=== PATIENT | female | born 1990 | race Caucasian/White ===

== ENCOUNTER 2017-04-29 20:00 | Emergency (ER) | payer SELFPAY ==
[2017-04-29] MEDS ORDERED: HYDROCODONE/ACETAMINOPHEN 5-325 MG TABLET PO ONE (20:54)
[2017-04-29] MEDS ORDERED: IBUPROFEN 600 MG TABLET PO ONE (20:54)
--- NOTE | 2017-04-29 21:02 | ER Document Report ---
ED GI/ - General Chief Complaint: Abdominal Pain Stated Complaint: LEFT LOWER ABDOMINAL PAIN Time Seen by Provider: 04/29/17 20:24 Notes: Patient is a 27-year-old female, past medical history ruptured left ovarian cyst , presents with 1 day of increasing left adnexal pain, similar to when she had a ruptured cyst. Her last menstrual period was 2 weeks ago. She denies vaginal discharge, diarrhea, constipation, nausea, vomiting or fevers. TRAVEL OUTSIDE OF THE [place] IN LAST 30 DAYS: No - Related Data Allergies/Adverse Reactions: No Known Allergies Allergy (Verified 04/16/15 09:43) Past Medical History - General Information source: Patient - Social History Smoking Status: Unknown if Ever Smoked Family History: None, Reviewed & Not Pertinent Patient has suicidal ideation: No Patient has homicidal ideation: No Renal/ Medical History: Denies: Hx Peritoneal Dialysis Psychiatric Medical History: Reports: Hx Anxiety Past Surgical History: Reports: Hx Adenoidectomy, Hx Tonsillectomy - & adenoids - Immunizations Immunizations up to date: Yes Hx Diphtheria, Pertussis, Tetanus Vaccination: No Review of Systems - Review of Systems Notes: REVIEW OF SYSTEMS: CONSTITUTIONAL: -fevers, -chills EENT: -eye pain, -difficulty swallowing, -nasal congestion CARDIOVASCULAR: -chest pain, -syncope. RESPIRATORY: -cough, -SOB GASTROINTESTINAL: +abdominal pain, -nausea, -vomiting, -diarrhea GENITOURINARY: -dysuria, -hematuria MUSCULOSKELETAL: -back pain, -neck pain SKIN: -rash or skin lesions. HEMATOLOGIC: -easy bruising or bleeding. LYMPHATIC: -swollen, enlarged glands. NEUROLOGICAL: -altered mental status or loss of consciousness, -headache, - neurologic symptoms PSYCHIATRIC: -anxiety, -depression. ALL OTHER SYSTEMS REVIEWED AND NEGATIVE. Physical Exam - Vital signs Vitals: Temp Pulse Resp BP Pulse Ox 98.4 F 79 16 145/85 H 100 04/29/17 20:13 04/29/17 20:13 04/29/17 20:13 04/29/17 20:13 04/29/17 20:13 - Notes Notes: PHYSICAL EXAMINATION: GENERAL: Well-appearing, well-nourished and in no acute distress. HEAD: Atraumatic, normocephalic. EYES: Pupils equal round and reactive to light, extraocular movements intact, sclera anicteric, conjunctiva are normal. ENT: nares patent, oropharynx clear without exudates. Moist mucous membranes. NECK: Normal range of motion, supple without lymphadenopathy LUNGS: Breath sounds clear to auscultation bilaterally and equal. No wheezes rales or rhonchi. HEART: Regular rate and rhythm without murmurs ABDOMEN: Soft, mild LLQ tenderness, normoactive bowel sounds. No guarding, no rebound. No masses appreciated. : Non-tender adnexa, no vaginal discharge, non-tender uterus, no masses EXTREMITIES: Normal range of motion, no pitting or edema. No cyanosis. NEUROLOGICAL: Cranial nerves grossly intact. Normal speech, normal gait. Normal sensory and motor exams. PSYCH: Normal mood, normal affect. SKIN: Warm, Dry, normal turgor, no rashes or lesions noted. Course - Re-evaluation Re-evalutation: Patient's transvaginal ultrasound and urinalysis do not show any concerning abnormalities. Initially tender in the left lower quadrant, but on repeat exam after her studies, she is no longer tender. Her pelvic exam is completely non- tender. Instructed patient to follow-up with her brush or broom cutter and primary care physician for further evaluation and treatment. - Vital Signs Vital signs: Temp Pulse Resp BP Pulse Ox 97.7 F 77 16 118/67 96 04/30/17 00:12 04/30/17 00:12 04/30/17 00:12 04/30/17 00:12 04/30/17 00:12 - Laboratory Laboratory results interpreted by me: 04/29/17 21:27 Urine Blood SMALL H Ur Leukocyte Esterase TRACE H - Diagnostic Test Radiology reviewed: Image reviewed, Reports reviewed Radiology results interpreted by me: US Transvaginal: Normal Discharge - Discharge Clinical Impression: Abdominal pain Qualifiers: Abdominal location: left lower quadrant Qualified Code(s): R10.32 - Left lower quadrant pain Condition: Stable Disposition: HOME, SELF-CARE Additional Instructions: ABDOMINAL PAIN: There are many causes of abdominal pain. Pain can mean a serious problem requiring surgery (such as appendicitis). It can also be an innocent problem that goes away on its own (such as a viral infection). Often, time must pass to determine the cause of pain. The physician does not feel that hospitalization is necessary, at present. Things may change within the next 24 hours. Call the doctor or come back for re- examination if any problems occur, such as: (1) Pain that becomes more severe, steady, or becomes concentrated in one specific area. Also, pain that is more severe with movement or coughing. (2) Vomiting that persists or becomes more frequent. (3) Blood in the vomitus, urine, or bowel movements. Blood in the stool may have a tarry or black appearance. (4) Shaking chills or fever greater than 100 degrees F. (5) The abdomen becomes more distended or swollen. (6) Bowel movements cease. (7) Failure to improve as expected. NORMAL EXAM AND WORKUP: At this time, your examination and workup show no significant abnormality. No significant abnormal physical findings are noted. All laboratory, EKG, and imaging (x-ray, CT scans, ultrasound) studies that were ordered show no significant abnormality. Although your examination and all studies that were ordered showed no significant abnormal finding, there are no examinations and no studies that are 100% accurate. There is always the possibility that some abnormality could exist and not be detected with physical examination or within the limits and capabilities of laboratory and other studies. You should return or follow up as you were instructed on your visit today for further evaluation if your symptoms do not resolve. ANTISPASMODICS: You have been given a prescription for an antispasmodic medicine. This type of drug is used to decrease cramping and pain in the intestines. It is also used to decrease secretion of internal fluids (such as stomach acid in ulcer disease or pancreatic juice in pancreas disease). This medicine may cause drowsiness, especially with the first dose. Do not operate machinery or drive until all side effects have resolved. Do not combine with alcohol. Other common side effects include dry mouth and eyes. In older persons, antispasmodics can occasionally cause urinary retention, constipation, or trouble focusing the eyes. Glaucoma may be worsened by this medicine. FOLLOW-UP CARE: If you have been referred to a physician for follow-up care, call the physician s office for an appointment as you were instructed or within the next two days. If you experience worsening or a significant change in your symptoms, notify the physician immediately or return to the Emergency Department at any time for re-evaluation. Prescriptions: Dicyclomine HCl [Bentyl 10 mg Capsule] 1 cap PO TID #14 cap Forms: Elevated Blood Pressure Referrals: [facility] [Outside] - Follow up as needed
[2017-04-29 21:44] LABS: APPEARANCE,URINE SLIGHTLY-CLOUDY; BILIRUBIN,URINE NEGATIVE (NEGATIVE); GLUCOSE, URINE NEGATIVE (NEGATIVE); KETONES,URINE NEGATIVE (NEGATIVE); LEUKOCYTE ESTERASE,URINE TRACE (NEGATIVE); NITRITE,URINE NEGATIVE (NEGATIVE); PROTEIN,URINE NEGATIVE (NEGATIVE); URINE SPECIFIC GRAVITY 1.003; UROBILINOGEN,URINE NEGATIVE mg/dL (<2.0)
--- NOTE | 2017-04-29 22:08 | RADIOLOGY REPORT (SQ) ---
EXAM DESCRIPTION: U/S NON OB PEL TV W/DOPPLER COMPLETED DATE/TIME: 04/29/2017 9:48 pm REASON FOR STUDY: transvaginal, left adnexal pain, Hx ruptured cysts COMPARISON: 03/22/2012 TECHNIQUE: Dynamic and static grayscale images acquired of the pelvis via transvaginal approach and recorded on PACS. Additional selected color Doppler and spectral images recorded. LIMITATIONS: None. FINDINGS: UTERUS: Contour normal. No mass. ENDOMETRIAL STRIPE: No focal or generalized thickening. No masses. CERVIX: No nabothian cysts. RIGHT OVARY: No abnormal masses. RIGHT OVARY DOPPLER: Normal arterial vascular flow without evidence for torsion. LEFT OVARY: No abnormal masses. LEFT OVARY DOPPLER: Normal arterial vascular flow without evidence for torsion. FREE FLUID: None noted. OTHER: No other significant finding. MEASUREMENTS: UTERUS: 8.0 x 3.9 x 4.9 cm ENDOMETRIAL STRIPE: 0.7 cm RIGHT OVARY: 2.7 x 3.4 x 3.4 cm LEFT OVARY: 1.6 x 2.4 x 1.4 cm IMPRESSION: NORMAL TRANSVAGINAL PELVIC ULTRASOUND. TECHNICAL DOCUMENTATION: JOB ID: [id number]- All Rights Reserved
[2017-04-29] MEDS ORDERED: DICYCLOMINE HCL 10 MG CAPSULE PO ONE (23:58)
[2017-04-30 00:15] VITALS: BP 118/67
== END 2017-04-30 00:12 | disposition home or self-care (01) ==
LOC: ER 20:00
DX: R10.32 Left lower quadrant pain (principal)
CPT/HCPCS: 99284; 81025; 81001; 76830; 93976; J3490

== ENCOUNTER 2017-08-30 16:11 | Emergency (ER) | payer SELFPAY ==
[2017-08-30] MEDS ORDERED: OXYCODONE-ACETAMINOPHEN 5-325 MG TABLET PO ONE ×2 (17:46→19:42)
--- NOTE | 2017-08-30 18:14 | ER Document Report ---
ED Wound - General Chief Complaint: Laceration Stated Complaint: RIGHT ARM INJURY Time Seen by Provider: 08/30/17 16:39 Notes: The patient is a 27-year-old female who presents with a right forearm laceration after she was demolishing a house at work and a tile cut her. Her tetanus is up-to-date. She denies heavy bleeding, numbness, tingling or any other wounds. TRAVEL OUTSIDE OF THE [place] IN LAST 30 DAYS: No - Related Data Allergies/Adverse Reactions: No Known Allergies Allergy (Verified 04/16/15 09:43) Past Medical History - General Information source: Patient - Social History Smoking Status: Current Every Day Smoker Chew tobacco use (# tins/day): No Frequency of alcohol use: Occasional Drug Abuse: None Family History: None, Reviewed & Not Pertinent Patient has suicidal ideation: No Patient has homicidal ideation: No Renal/ Medical History: Denies: Hx Peritoneal Dialysis Psychiatric Medical History: Reports: Hx Anxiety Past Surgical History: Reports: Hx Adenoidectomy, Hx Tonsillectomy - & adenoids - Immunizations Immunizations up to date: Yes Hx Diphtheria, Pertussis, Tetanus Vaccination: No Review of Systems - Review of Systems Notes: REVIEW OF SYSTEMS: CONSTITUTIONAL: -fevers, -chills EENT: -eye pain, -difficulty swallowing, -nasal congestion CARDIOVASCULAR:-chest pain, -syncope. RESPIRATORY: -cough, -SOB GASTROINTESTINAL: -abdominal pain, - nausea, -vomiting, -diarrhea GENITOURINARY: -dysuria, -hematuria MUSCULOSKELETAL: -back pain, -neck pain SKIN: +right forearm laceration HEMATOLOGIC: -easy bruising or bleeding. LYMPHATIC: -swollen, enlarged glands. NEUROLOGICAL: -altered mental status or loss of consciousness, -headache, - neurologic symptoms PSYCHIATRIC: -anxiety, -depression. ALL OTHER SYSTEMS REVIEWED AND NEGATIVE. Physical Exam - Vital signs Vitals: Temp Pulse Resp BP Pulse Ox 97.9 F 96 20 127/79 H 100 08/30/17 16:16 08/30/17 16:16 08/30/17 16:16 08/30/17 16:16 08/30/17 16:16 - Notes Notes: PHYSICAL EXAMINATION: GENERAL: Well-appearing, well-nourished and in no acute distress. HEAD: Atraumatic, normocephalic. EYES: Pupils equal round and reactive to light, extraocular movements intact, sclera anicteric, conjunctiva are normal. ENT: nares patent, oropharynx clear without exudates. Moist mucous membranes. NECK: Normal range of motion, supple without lymphadenopathy LUNGS: Breath sounds clear to auscultation bilaterally and equal. No wheezes rales or rhonchi. HEART: Regular rate and rhythm without murmurs ABDOMEN: Soft, nontender, normoactive bowel sounds. No guarding, no rebound. No masses appreciated. EXTREMITIES: Normal range of motion, no pitting or edema. No cyanosis. Strong distal pulses. NEUROLOGICAL: Cranial nerves grossly intact. Normal speech, normal gait. Normal sensory and motor exams. PSYCH: Normal mood, normal affect. SKIN: 15 cm linear laceration of right posterior forearm Course - Re-evaluation Re-evalutation: Patient's laceration extensively cleaned and irrigated. She has no vascular or neuro compromise. Laceration sutured and patient given strict return precautions. Her tetanus is up-to-date. - Vital Signs Vital signs: Temp Pulse Resp BP Pulse Ox 98.5 F 86 18 124/74 100 08/30/17 19:54 08/30/17 19:54 08/30/17 19:54 08/30/17 19:54 08/30/17 19:54 Procedures - Laceration/Wound Repair Right Arm Time completed: 19:39 Wound length (cm): 15 Wound's Depth, Shape: Into muscle, Linear Laceration pre-procedure: Sterile PPE donned, Sterile drapes applied, Shur- Clens applied Anesthetic type: 1% Lidocaine w/epi Volume Anesthetic (mLs): 10 Wound explored: Clean, No foreign body removed Irrigated w/ Saline (mLs): 1,000 Wound Repaired With: Sutures Suture Size/Type: 4:0, Prolene Number of Sutures: 15 Layer Closure?: No Post-procedure wound care: Sterile dressing applied Post-procedure NV exam normal: Yes Complications: No Discharge - Discharge Clinical Impression: Laceration of right forearm Qualifiers: Encounter type: initial encounter Qualified Code(s): S51.811A - Laceration without foreign body of right forearm, initial encounter Condition: Stable Disposition: HOME, SELF-CARE Additional Instructions: LACERATION CARE: Your laceration has been sutured to keep the skin edges aligned during healing. The time of suture removal depends on the nature and location of your cut. Please follow the care instructions the doctor has outlined for you and return for further care, according to the schedule you've been given. Keep the wound and dressing clean. Unless you were told otherwise, you may shower daily, blotting the wound dry with a clean, unused towel. At other times, If the dressing gets wet or blood soaked, remove it and blot the wound dry, then reapply a new dressing. Unless you were instructed otherwise, dressings should be changed at least daily. If any signs of infection occur (swelling, redness, drainage, increasing tenderness, red streaks, tender lumps in the armpit or groin above the laceration, or fever), see the doctor immediately. SOAP CLEANSING: Gently wash the wound daily using a mild soap (like Ivory, Phisoderm, Neutrogena). Use warm water, rubbing gently until all debris, ooze, and crusting have been washed from the wound. Allow to dry briefly (about 10 minutes) after cleaning. Repeat this cleansing at least three times a day for the first two days and then once or twice a day. ANTIBIOTIC OINTMENT PROTECTION: Your wounds are such that dressing them is not practical or optional. After cleansing, you should apply a thin coating of antibiotic ointment ( Bacitracin, not Neosporin) to the wounds at least three times daily. This lessens infection risk, and may decrease the amount of scarring. Use a q-tip or dull butter knife, not your finger, to apply this ointment. Any debris or ooze which builds up in the ointment should be gently rubbed off with a sterile gauze pad. Harder crusting may need to be gently scrubbed off with a clean wash cloth with soap and warm water, perhaps applying a warm, wet wash cloth to the wound for ten minutes first. Development of redness, severe itching, or blistering may mean allergy to the ointment. See the doctor. FOLLOW-UP CARE: Please return in 2 days for an infection check and dressing change. Your sutures should be removed in 7-10 days. To facilitate a timely removal of your sutures, you may return to the Emergency Department at [facility]. You do not need to call for an appointment, but the best time to come in for suture removal is early in the morning. If you have been referred to another physician for follow-up care, call that physicians office for an appointment as you were instructed. If you experience a significant change in your laceration, or if you are concerned there may be an infection (swelling, redness, drainage, increasing tenderness, red streaks, tender lumps in the armpit or groin above the laceration, or fever) , return to the Emergency Department immediately re-evaluation.
[2017-08-30] MEDS ORDERED: LIDOCAINE 1%/EPINEPHRINE INJ 20 ML VIAL INJ ONE (18:40)
[2017-08-30 21:23] VITALS: BP 124/74
== END 2017-08-30 19:53 | disposition home or self-care (01) ==
LOC: ER 16:11
PROC: 0HQDXZZ Repair Right Lower Arm Skin, External Approach (ICD-10-PCS; principal; 2017-08-30)
DX: S51.811A Laceration without foreign body of right forearm, initial encounter (principal); W45.8XXA Other foreign body or object entering through skin, initial encounter; F17.200 Nicotine dependence, unspecified, uncomplicated
CPT/HCPCS: 99283; 12005; J3490

== ENCOUNTER 2017-10-19 20:43 | Emergency (ER) | payer SELFPAY ==
[2017-10-19] MEDS ORDERED: KETOROLAC TROMETHAMINE INJ/PF 30 MG/1 ML SDV IV ONE (21:22)
[2017-10-19] MEDS ORDERED: ONDANSETRON HCL INJ/PF 4 MG/2 ML SDV IV ONE (21:22)
[2017-10-19] MEDS ORDERED: MORPHINE SULFATE 10 MG/ML INJ IV ONE (21:22)
--- NOTE | 2017-10-19 21:25 | ER Document Report ---
ED GI/ - General Chief Complaint: Abdominal Pain Stated Complaint: ABDOMINAL PAIN Time Seen by Provider: 10/19/17 21:16 Notes: Patient is a 27-year-old female that comes emergency department for chief complaint of sharp left lower pelvic pain that seems to radiate around her back , symptoms started last night, worsen, she states now she is nauseated with it. She states that she tried to put a tampon in because of the bleeding but when she did she had increased pain in her left pelvic area. She denies vaginal discharge, fever or chills. She denies any daily medications. Past medical history of ovarian cysts, states this seems worse. Denies history of kidney stones. TRAVEL OUTSIDE OF THE [place] IN LAST 30 DAYS: No - Related Data Allergies/Adverse Reactions: No Known Allergies Allergy (Verified 10/19/17 20:44) Past Medical History - General Information source: Patient - Social History Smoking Status: Never Smoker Frequency of alcohol use: None Drug Abuse: None Lives with: Family Family History: None, Reviewed & Not Pertinent Renal/ Medical History: Denies: Hx Peritoneal Dialysis Psychiatric Medical History: Reports: Hx Anxiety Past Surgical History: Reports: Hx Adenoidectomy, Hx Tonsillectomy - & adenoids - Immunizations Immunizations up to date: Yes Hx Diphtheria, Pertussis, Tetanus Vaccination: No Review of Systems - Review of Systems Constitutional: No symptoms reported EENT: No symptoms reported Cardiovascular: No symptoms reported Respiratory: No symptoms reported Gastrointestinal: See HPI Genitourinary: See HPI Female Genitourinary: See HPI Musculoskeletal: No symptoms reported Skin: No symptoms reported Hematologic/Lymphatic: No symptoms reported Neurological/Psychological: No symptoms reported Physical Exam - Vital signs Vitals: Temp Pulse Resp BP Pulse Ox 98.4 F 91 18 105/79 98 10/19/17 20:46 10/19/17 20:46 10/19/17 20:46 10/19/17 20:46 10/19/17 20:46 Interpretation: Normal - General General appearance: Alert, Anxious In distress: Mild - Patient appears uncomfortable - HEENT Head: Normocephalic, Atraumatic Eyes: Normal Conjunctiva: Normal Extraocular movements intact: Yes Eyelashes: Normal Pupils: PERRL Mouth/Lips: Normal Mucous membranes: Normal Pharynx: Normal Neck: Normal - Respiratory Respiratory status: No respiratory distress Chest status: Nontender Breath sounds: Normal. No: Decreased air movement, Wheezing Chest palpation: Normal - Cardiovascular Rhythm: Regular. No: Tachycardia Heart sounds: Normal auscultation, S1 appreciated, S2 appreciated Murmur: No - Abdominal Inspection: Normal Distension: No distension Bowel sounds: Normal Tenderness: Tender - Tender in the mid to left lower pelvic areas, remaining abdomen unremarkable, no rebound tenderness, rigidity, or guarding. No: Guarding - Back Back: Normal, Nontender. No: Tender, CVA tenderness - Extremities General upper extremity: Normal inspection, Nontender, Normal color, Normal ROM , Normal temperature General lower extremity: Normal inspection, Nontender, Normal color, Normal ROM , Normal temperature, Normal weight bearing. No: Aren's sign - Neurological Neuro grossly intact: Yes Cognition: Normal Orientation: AAOx4 [place] Coma Scale Eye Opening: Spontaneous [place] Coma Scale Verbal: Oriented [place] Coma Scale Motor: Obeys Commands [place] Coma Scale Total: 15 Speech: Normal Motor strength normal: LUE, RUE, LLE, RLE Sensory: Normal - Skin Skin Temperature: Warm Skin Moisture: Dry Skin Color: Normal Course - Re-evaluation Re-evalutation: Patient appears uncomfortable, she has tenderness in the lower pelvic and left pelvic areas, remaining abdomen is soft and benign. No CVA tenderness. No fever, tachycardia, hypotension. CBC unremarkable, urinalysis unremarkable. Chemistry shows elevated LFTs with ALT greater than AST. Patient is not wanting a pelvic exam due to discomfort, gonorrhea and Chlamydia testing on urine and are negative. I did medicate her to have the ultrasound performed, ultrasound shows no acute abnormality, shows some free fluid. No trauma to suggest any other surgical abnormality. With history of cysts, patient possibly ruptured a cyst, this is not definite. I recommended we perform hepatitis panel based on her elevated LFTs with no obvious source, patient declines. Instructed to avoid Tylenol, alcohol, and have this rechecked with primary care. Discussed workup, discussed return precautions including return or worsening pain, vomiting, fever, dizziness, patient states understanding and agreement. - Vital Signs Vital signs: Temp Pulse Resp BP Pulse Ox 98.4 F 84 16 125/79 100 10/19/17 20:46 10/20/17 04:03 10/20/17 04:03 10/20/17 04:03 10/20/17 04:03 - Laboratory Result Diagrams: 10/19/17 21:48 10/19/17 21:48 Laboratory results interpreted by me: 10/19/17 10/19/17 21:48 23:21 Direct Bilirubin 0.6 H AST 175 H ALT 275 H Urine Blood MODERATE H Discharge - Discharge Clinical Impression: Pelvic pain, Vaginal bleeding Condition: Stable Disposition: HOME, SELF-CARE Additional Instructions: There is some free fluid in the pelvis suggesting possible previous ovarian cyst which caused the pain he had, this also could be bowel, no concerning abnormalities are seen on your workup tonight. Take [id number] ibuprofen , take provided medications tonight if needed. Your liver function tests are elevated tonight. I recommend avoiding alcohol, acetaminophen products, please follow-up with primary care for recheck in the next couple of weeks. Return the emergency department for any concerning or worsening symptoms including vomiting, fever, or any other concerning or worsening symptoms. Forms: Return to Work
[2017-10-19 22:07] LABS: ABSOLUTE EOSINOPHILS # (AUTO) 0.2 10^3/uL (0.0-0.6); ABSOLUTE LYMPHOCYTES (AUTO) 1.7 10^3/uL (0.5-4.7); ABSOLUTE MONOCYTES (AUTO) 0.9 10^3/uL (0.1-1.4); ABSOLUTE NEUT (AUTO) 7.3 10^3/uL (1.7-8.2); BASOPHILS % (AUTO) 0.4 % (0-2); EOSINOPHILS % (AUTO) 1.8 % (0-6); HEMATOCRIT 39.9 % (36.0-47.0); HEMOGLOBIN 13.6 g/dL (12.0-15.5); HGB HCT DIFFERENCE 0.9; LYMPHOCYTES % (AUTO) 16.8 % (13-45); MEAN CORPUSCULAR HGB CONC 34.1 g/dL (32.0-36.0); MEAN CORPUSCULAR VOLUME 94 fl (80-97); MONOCYTES % (AUTO) 8.5 % (3-13); RED BLOOD COUNT 4.25 10^6/uL (3.72-5.28); RED CELL DISTRIBUTION WIDTH 13.4 % (11.5-14.0); SEGMENTED NEUTROPHILS % (AUTO) 72.5 % (42-78)
[2017-10-19 22:24] LABS: ALANINE AMINOTRANSFERASE 275 U/L (9-52); ALBUMIN 4.2 g/dL (3.5-5.0); ALKALINE PHOSPHATASE 101 U/L (38-126); ANION GAP 10 (5-19); ASPARTATE AMINO TRANSFERASE 175 U/L (14-36); BILIRUBIN,DIRECT 0.6 mg/dL (0.0-0.4); BILIRUBIN,TOTAL 0.7 mg/dL (0.2-1.3); BLOOD UREA NITROGEN 15 mg/dL (7-20); CALCIUM 9.4 mg/dL (8.4-10.2); CARBON DIOXIDE 26 mmol/L (22-30); CHLORIDE 106 mmol/L (98-107); CREATININE RESULT 0.88 mg/dL (0.52-1.25); GLUCOSE 98 mg/dL (75-110); SODIUM 142.2 mmol/L (137-145); TOTAL PROTEIN 6.9 g/dL (6.3-8.2)
[2017-10-19] MEDS ORDERED: HYDROMORPHONE HCL INJ/PF 2 MG/ML AMPULE IV ONE (22:26)
[2017-10-19 23:37] LABS: APPEARANCE,URINE CLEAR; BILIRUBIN,URINE NEGATIVE (NEGATIVE); GLUCOSE, URINE NEGATIVE (NEGATIVE); KETONES,URINE NEGATIVE (NEGATIVE); LEUKOCYTE ESTERASE,URINE NEGATIVE (NEGATIVE); NITRITE,URINE NEGATIVE (NEGATIVE); PROTEIN,URINE NEGATIVE (NEGATIVE); URINE SPECIFIC GRAVITY 1.003; UROBILINOGEN,URINE NEGATIVE mg/dL (<2.0)
[2017-10-20] MEDS ORDERED: HYDROMORPHONE HCL INJ/PF 2 MG/ML AMPULE IV ONE (00:55)
--- NOTE | 2017-10-20 02:18 | RADIOLOGY REPORT (SQ) ---
EXAM DESCRIPTION: U/S NON OB PEL TV W/DOPPLER CLINICAL HISTORY: 27 years, Female, sharp left pelvic pain, vaginal bleeding, nausea COMPARISON: None. TECHNIQUE: Transvaginal. LIMITATIONS: None. FINDINGS: 7.3 cm uterus, 0.5 cm thick endometrium, 2.8 cm right ovary, 2.3 cm left ovary appear normal size, shape, echotexture, and vascularity. No significant free fluid. IMPRESSION: Normal pelvic sonogram. 2011 [employer]- All Rights Reserved
[2017-10-20] MEDS ORDERED: HYDROCODONE/ACETAMINOPHEN 5-325 MG 6 TAB/DSPK PO PRN (02:47)
[2017-10-20] MEDS ORDERED: HYDROCODONE/ACETAMINOPHEN 5-325 MG 6 TAB/DSPK ONE (02:49)
[2017-10-20 04:04] VITALS: BP 125/79
== END 2017-10-20 02:56 | disposition home or self-care (01) ==
LOC: ER 20:43
DX: N93.9 Abnormal uterine and vaginal bleeding, unspecified (principal); R10.2 Pelvic and perineal pain; R11.0 Nausea; M54.9 Dorsalgia, unspecified
CPT/HCPCS: 96376; 99284; 96374; 96375; 36415; 84703; 85025; 80053; 81001; 87491; 87591; 76830; 93976; J1885; J2270; J1170 ×2; J2405

== ENCOUNTER 2018-03-17 12:42 | Emergency (ER) | payer SELFPAY ==
--- NOTE | 2018-03-17 13:33 | ER Document Report ---
HPI - HPI Patient complains to provider of: abscess left forearm Onset: Yesterday Onset/Duration: Gradual Pain Level: 5 Context: 28 yo female c/o infected possible flea bite left forearm. Got some pus out, now crusted top. Woke up this morning with pink lesion proximal dorsal left forearm this am. 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 No hx MRSA but has had boils in the past. NO chest pain or sob Associated Symptoms: Other Exacerbated by: Other - touching it Relieved by: Denies Similar symptoms previously: Yes Recently seen / treated by doctor: No - ROS ROS below otherwise negative: Yes Systems Reviewed and Negative: Yes All other systems reviewed and negative - REPRODUCTIVE Reproductive: DENIES: : Past Medical History - General Information source: Patient - Social History Smoking Status: Current Every Day Smoker Frequency of alcohol use: Occasional Drug Abuse: Methamphetamine Occupation: constuction Lives with: Family Family History: Reviewed & Not Pertinent Renal/ Medical History: Denies: Hx Peritoneal Dialysis Skin Medical History: Reports Other - boils Psychiatric Medical History: Reports: Hx Anxiety Past Surgical History: Reports: Hx Adenoidectomy, Hx Tonsillectomy - & adenoids - Immunizations Immunizations up to date: Yes Hx Diphtheria, Pertussis, Tetanus Vaccination: No Vertical Provider Document - CONSTITUTIONAL Agree With Documented VS: Yes Exam Limitations: No Limitations General Appearance: No Apparent Distress - INFECTION CONTROL TRAVEL OUTSIDE OF THE [place] IN LAST 30 DAYS: No - HEENT HEENT: Normocephalic - NECK Neck: Supple - RESPIRATORY Respiratory: Breath Sounds Normal, No Respiratory Distress - CARDIOVASCULAR Cardiovascular: Regular Rate, Regular Rhythm - MUSCULOSKELETAL/EXTREMETIES Musculoskeletal/Extremeties: MAEW, FROM, Tender - crusted red abscess with black center left volar forearm, other dots but denies them to be injection sites. inflamed pink lesion without abscess proximal left dorsal forearm. Course - Vital Signs Vital signs: Temp Pulse Resp BP Pulse Ox 98.6 F 116 H 16 123/79 99 03/17/18 12:46 03/17/18 12:46 03/17/18 12:46 03/17/18 12:46 03/17/18 12:46 Procedures - Incision and Drainage Arm Time completed: 15:27 Type: Simple Anesthetic type: 1% Lidocaine mL's of anesthetic: 2 Blade size: 11 I&D procedure: Other - surgiscrub Incision Method: Incision made by scalpel Amount/type of drainage: moderate pus, deroofed the lesion Discharge - Discharge Clinical Impression: Abscess of left forearm, Encounter for incision and drainage procedure Condition: Good Instructions: Abscess ([facility]), Acetaminophen, Cephalexin ([facility]), Ibuprofen ( General) ([facility]), Post Incision and Drainage, Trimethoprim-Sulfa ([facility]) Additional Instructions: motrin tylenol warm compress bactroban on the pink posterior arm lesion septra and keflex until gone to er if does not improve daily Prescriptions: Ibuprofen [Motrin 600 mg Tablet] 600 mg PO Q8HP PRN #30 tablet PRN Reason: Cephalexin Monohydrate [Keflex 500 mg Capsule] 500 mg PO QID #28 capsule Sulfamethoxazole/Trimethoprim [Sulfamethoxazole-Tmp Ds Tablet] 1 each PO BID # 14 tablet Forms: Return to Work
[2018-03-17] MEDS ORDERED: LIDOCAINE 4%/TETRACAINE 0.5%/EPI 0.18% 5 ML TOPICAL SOLN TOP ONE (13:44)
[2018-03-17] MEDS ORDERED: IBUPROFEN 600 MG TABLET PO ONE (13:45)
[2018-03-17] MEDS ORDERED: CEPHALEXIN 500 MG CAPSULE PO ONE (13:45)
[2018-03-17] MEDS ORDERED: ACETAMINOPHEN 325 MG TABLET PO ONE (13:45)
[2018-03-17] MEDS ORDERED: SULFAMETHOXAZOLE/TRIMETHOPRIM 800-160 MG TABLET PO ONE (13:45)
[2018-03-17] MEDS ORDERED: MUPIROCIN 2% OINTMENT 22 GM TP ONE (13:49)
[2018-03-17] MEDS ORDERED: LIDOCAINE 1% INJ-PF (10 MG/ML) 30 ML SDV ONE (14:43)
[2018-03-17] MEDS ORDERED: LIDOCAINE 1% INJ-PF (10 MG/ML) 30 ML SDV INJ ONE (15:03)
[2018-03-17] MEDS ORDERED: OXYCODONE HCL IR 5 MG TABLET PO ONE (15:26)
[2018-03-17 15:32] VITALS: BP 124/73
== END 2018-03-17 15:43 | disposition home or self-care (01) ==
LOC: ER 12:42
PROC: 0H9EXZZ Drainage of Left Lower Arm Skin, External Approach (ICD-10-PCS; principal; 2018-03-17)
DX: L02.414 Cutaneous abscess of left upper limb (principal); W57.XXXA Bitten or stung by nonvenomous insect and other nonvenomous arthropods, initial encounter; F17.200 Nicotine dependence, unspecified, uncomplicated
CPT/HCPCS: 99283; 10060; J3490 ×2

== ENCOUNTER 2018-05-20 11:16 | Emergency (ER) | payer MEDICAID ==
[2018-05-20] MEDS ORDERED: ACETAMINOPHEN 325 MG TABLET PO ONE (11:44)
--- NOTE | 2018-05-20 11:45 | ER Document Report ---
ED General - General Chief Complaint: Flank Pain Stated Complaint: ABDOMINAL PAIN Time Seen by Provider: 05/20/18 11:36 Mode of Arrival: Ambulatory Information source: Patient TRAVEL OUTSIDE OF THE [place] IN LAST 30 DAYS: No - HPI Notes: 28-year-old female who is 10 weeks 2 para 1 presents the ED with right flank pain, pain started approximately 2 days ago, she states the pain radiates to her neck and down her leg, she has tried [id number] Tylenol, without full relief. - Related Data Allergies/Adverse Reactions: No Known Allergies Allergy (Verified 05/20/18 11:17) Past Medical History - Social History Smoking Status: Current Every Day Smoker Chew tobacco use (# tins/day): No Frequency of alcohol use: None Drug Abuse: Marijuana Family History: Reviewed & Not Pertinent Patient has suicidal ideation: No Patient has homicidal ideation: No Renal/ Medical History: Denies: Hx Peritoneal Dialysis Psychiatric Medical History: Reports: Hx Anxiety Past Surgical History: Reports: Hx Adenoidectomy, Hx Tonsillectomy - & adenoids - Immunizations Immunizations up to date: Yes Hx Diphtheria, Pertussis, Tetanus Vaccination: No Physical Exam - Vital signs Vitals: Temp Pulse Resp BP Pulse Ox 98.7 F 112 H 18 117/65 100 05/20/18 11:20 05/20/18 11:20 05/20/18 11:20 05/20/18 11:20 05/20/18 11:20 - Notes Notes: PHYSICAL EXAMINATION: GENERAL: Well-appearing, well-nourished and in no acute distress. HEAD: Atraumatic, normocephalic. EYES: Pupils equal round and reactive to light, extraocular movements intact, conjunctiva are normal. ENT: Nares patent, oropharynx clear without exudates. Moist mucous membranes. NECK: Normal range of motion, supple without lymphadenopathy LUNGS: Breath sounds clear to auscultation bilaterally and equal. No wheezes rales or rhonchi. HEART: Regular rate and rhythm without murmurs ABDOMEN: Soft, nontender, nondistended abdomen. No guarding, no rebound. No masses appreciated. marked right cva tenderness, left negative. Female : deferred Musculoskeletal: Normal range of motion, no pitting or edema. No cyanosis. Pain with flexion and extension at 30 degrees, positive straight leg test on left. Normal hip rotation. DTR +2 in BLE equally. Strength 5 out of 5 both distally and proximally to bilateral lower extremities normal motor and sensory function in BLE equally. Distal pulses + 2 BLE equally. Noted paraspinal tenderness near L2 and L3. No spinal tenderness. No CVA tenderness bilaterally. Femoral pulses + 2 bilaterally and equally. No abrasions, scars, lacerations, ecchymosis of any recent trauma. normal gait. NEUROLOGICAL: Cranial nerves grossly intact. Normal speech, normal gait. Normal sensory, motor exams PSYCH: Normal mood, normal affect. SKIN: Warm, Dry, normal turgor, no rashes or lesions noted. Course - Re-evaluation Re-evalutation: 05/20/18 16:06 28-year-old female who is afebrile, vitals stable and in mild distress due to pain presents for evaluation of sudden onset right flank pain, CBC negative for any leukocytosis or anemia, CMP negative for any renal or dysfunction, lipase negative. Patient does have elevated liver enzymes, this likely could be due to Tylenol use for her pain. urinalysis negative for UTI urine tox negative. Consulted Dr. Erica Myles, supervising ED attending pertinent laboratory, diagnostic findings and clinical examinations, felt that without any direct trauma, along with her , patient likely has a pinched nerve or muscle strain, is limited with radiological findings as well as pain control to the . Renal ultrasound negative for any acute findings per radiology, transvaginal ultrasound shows a live intrauterine with a heart rate of 150 because the patient to limit Tylenol for pain, to try alternating between heat and ice, as, following up with a chiropractor, orthopedics teacher as well as her FINANCE VICE PRESIDENT and pcp. After performing a Medical Screening Examination, I estimate there is LOW risk for EXPANDING OR RUPTURED ABDOMINAL AORTIC ANEURYSM, CAUDA EQUINA SYNDROME, EPIDURAL MASS ABSCESS OR LESION(S), appendicitis, small bowel obstruction, cholecystitis, incarcerated hernia, pancreatitis, PID, perforated ulcer, tubo-ovarian abscess OSTEOMYELITIS, PERSONAL HISTORY OF CANCER, IMMUNOSUPPERSSSION, HISTORY OF IV DRUG USE, FRACTURE , CORD COMPERSSION, CANCER, RETROPERITONEAL BLEED, SPINAL EPIDURAL HEMATOMA, or HERNIATED DISK CAUSING SEVERE SPINAL STENOSIS, thus I consider the discharge disposition reasonable. I have reevaluated this patient multiple times and no significant life threatening changes are noted. The patient and I have discussed the diagnosis and risks, and we agree with discharging home and close follow-up. We also discussed returning to the Emergency Department immediately if new or worsening symptoms occur with the understanding that symptoms and presentations can change. We have discussed the symptoms which are most concerning (e.g., saddle anesthesia, urinary or bowel incontinence or retention , changing or worsening pain) that necessitate immediate return. 05/20/18 17:04 - Vital Signs Vital signs: Temp Pulse Resp BP Pulse Ox 98.3 F 87 18 107/83 100 05/20/18 16:04 05/20/18 16:04 05/20/18 16:04 05/20/18 16:04 05/20/18 16:04 - Laboratory Result Diagrams: 05/20/18 12:15 05/20/18 14:35 Laboratory results interpreted by me: 05/20/18 05/20/18 05/20/18 12:15 12:33 14:35 RDW 14.5 H AST 60 H ALT 107 H Urine Blood SMALL H Discharge - Discharge Clinical Impression: Elevated liver enzymes, First trimester Lower back pain Qualifiers: Chronicity: acute Back pain laterality: left Sciatica presence: without sciatica Qualified Code(s): M54.5 - Low back pain Condition: Stable Disposition: HOME, SELF-CARE Instructions: Flank Pain ([facility]), Low Back Pain ([facility]), ([facility]) Additional Instructions: You have been seen in the Emergency Department (ED) today for back pain. Your workup and exam have not shown any acute abnormalities and you are likely suffering from muscle strain or possible problems with your discs, but there is no treatment that will fix your symptoms at this time. Please take the naproxen that has been prescribed as directed. You should also purchase a local lidocaine cream such as "aspercreme with lidocaine" and use per bottle instructions to the affected area. Apply heat to the area as often as you are able. Continue to keep active and avoid prolonged periods of bed rest. Please follow up with your doctor as soon as possible regarding today's ED visit and your back pain. Return to the ED for worsening back pain, fever, weakness or numbness of either leg, or if you develop either (1) an inability to urinate or have bowel movements, or (2) loss of your ability to control your bathroom functions (if you start having "accidents"), or if you develop other new symptoms that concern you.concern you. You were seen for abdominal pain during . Your ultrasound and labs are normal today. The exact cause your pain is uncertain but is likely related to your developing baby. Please follow-up with your FINANCE VICE PRESIDENT in the next 24-48 hours. Return to the emergency department immediately if you have worsening of your pain, have persistent vomiting, develop a fever of greater than 100.4F, begin to have vaginal bleeding, or any other symptoms that are worrisome to you. Return immediately for any new or worsening symptoms. Follow up with primary care provider, call tomorrow to make followup appointment. Forms: Return to Work Referrals: LISSETH CARRANZA MD [ASSOCIATE] - Follow up tomorrow ADDIS ORELLANA MD [ACTIVE STAFF] - Follow up tomorrow SAMI SWEENEY MD [ACTIVE STAFF] - Follow up tomorrow
[2018-05-20 12:27] LABS: ABSOLUTE BASOPHILS # (AUTO) 0.1 10^3/uL (0.0-0.2); ABSOLUTE EOSINOPHILS # (AUTO) 0.2 10^3/uL (0.0-0.6); ABSOLUTE LYMPHOCYTES (AUTO) 1.8 10^3/uL (0.5-4.7); ABSOLUTE MONOCYTES (AUTO) 0.6 10^3/uL (0.1-1.4); ABSOLUTE NEUT (AUTO) 5.1 10^3/uL (1.7-8.2); HEMATOCRIT 38.5 % (36.0-47.0); HEMOGLOBIN 13.4 g/dL (12.0-15.5); LYMPHOCYTES % (AUTO) 22.7 % (13-45); MEAN CORPUSCULAR HEMOGLOBIN 32.2 pg (27.0-33.4); MEAN CORPUSCULAR HGB CONC 34.9 g/dL (32.0-36.0); MEAN CORPUSCULAR VOLUME 92 fl (80-97); MONOCYTES % (AUTO) 8.3 % (3-13); PLATELET COUNT 298 10^3/uL (150-450); RED BLOOD COUNT 4.18 10^6/uL (3.72-5.28); RED CELL DISTRIBUTION WIDTH 14.5 % (11.5-14.0); TOTAL CELLS COUNTED % (AUTO) 100 %; WHITE BLOOD COUNT 7.7 10^3/uL (4.0-10.5)
[2018-05-20 12:43] LABS: APPEARANCE,URINE CLEAR; BILIRUBIN,URINE NEGATIVE (NEGATIVE); COLOR,URINE STRAW; GLUCOSE, URINE NEGATIVE (NEGATIVE); KETONES,URINE NEGATIVE (NEGATIVE); LEUKOCYTE ESTERASE,URINE NEGATIVE (NEGATIVE); NITRITE,URINE NEGATIVE (NEGATIVE); PROTEIN,URINE NEGATIVE (NEGATIVE); URINE SPECIFIC GRAVITY 1.002; UROBILINOGEN,URINE NEGATIVE mg/dL (<2.0)
[2018-05-20 14:32] LABS: URINE BARBITURATES SCREEN NEGATIVE; URINE BENZODIAZEPINES SCREEN NEGATIVE; URINE COCAINE SCREEN NEGATIVE; URINE MARIJUANA (THC) SCREEN NEGATIVE; URINE METHADONE SCREEN NEGATIVE; URINE PHENCYCLIDINE SCREEN NEGATIVE
--- NOTE | 2018-05-20 14:44 | RADIOLOGY REPORT (SQ) ---
EXAM DESCRIPTION: U/S 1TRIMESTER/1GEST W/DOPPLER COMPLETED DATE/TIME: 05/20/2018 2:32 pm REASON FOR STUDY: hip/pelvic pain COMPARISON: None TECHNIQUE: Transabdominal static and realtime grayscale images acquired of the pelvis. Additional se lected spectral and color Doppler images recorded. All images stored on PACs. bHCG: Not available. CLINICAL DATES: Not Available. LIMITATIONS: None. FINDINGS: FETUS: Living intrauterine . ULTRASOUND EGA: 10 weeks, 0 days ULTRASOUND TERRY: 12/16/2018 CRL: 3.16 cm FHR: 150 beats per minute. SUBCHORIONIC BLEED: No. SIZE OF BLEED: Not applicable. UTERUS: No masses. No anomalies. CERVICAL LENGTH: 3.2 cm Closed. RIGHT ADNEXA: Ovary not identified. No adnexal free fluid. No adnexal masses. LEFT ADNEXA: Ovary not identified. No adnexal free fluid. No adnexal masses. FREE FLUID: None. OTHER: No other significant finding. IMPRESSION: LIVING INTRAUTERINE . EGA 10 weeks, 0 days Trimester of : First - 0 to 13 weeks. TECHNICAL DOCUMENTATION: JOB ID: [id number] [employer]- All Rights Reserved Reading location - IP/workstation name: [email or web address]
--- NOTE | 2018-05-20 14:46 | RADIOLOGY REPORT (SQ) ---
EXAM DESCRIPTION: U/S RETROPERITON (RENAL/AORTA) COMPLETED DATE/TIME: 05/20/2018 2:34 pm REASON FOR STUDY: right flank pain COMPARISON: None. TECHNIQUE: Dynamic and static grayscale images acquired of the kidneys and bladder and recorded on P ACS. Additional selected color Doppler and spectral images recorded. LIMITATIONS: None. FINDINGS: RIGHT KIDNEY: Normal size. Normal echogenicity. No solid or suspicious masses. No hydronep hrosis. No calcifications. LEFT KIDNEY: Normal size. Normal echogenicity. No solid or suspicious masses. No hydronephrosis. No calcifications. BLADDER: Not visualized, presumably decompressed. OTHER FINDINGS: No other significant finding. IMPRESSION: Normal sonographic appearance of the kidneys. The bladder was not visualized. TECHNICAL DOCUMENTATION: JOB ID: [id number]- All Rights Reserved Reading location - IP/workstation name: [email or web address]
[2018-05-20 15:11] LABS: ALANINE AMINOTRANSFERASE 107 U/L (9-52); ALBUMIN 4.3 g/dL (3.5-5.0); ALKALINE PHOSPHATASE 62 U/L (38-126); ANION GAP 11 (5-19); ASPARTATE AMINO TRANSFERASE 60 U/L (14-36); BILIRUBIN,DIRECT 0.3 mg/dL (0.0-0.4); BILIRUBIN,TOTAL 0.6 mg/dL (0.2-1.3); BLOOD UREA NITROGEN 12 mg/dL (7-20); CALCIUM 9.7 mg/dL (8.4-10.2); CARBON DIOXIDE 23 mmol/L (22-30); CHLORIDE 105 mmol/L (98-107); GLUCOSE 106 mg/dL (75-110); LIPASE 69.1 U/L (23-300); POTASSIUM 3.7 mmol/L (3.6-5.0); TOTAL PROTEIN 7.1 g/dL (6.3-8.2)
[2018-05-20 16:08] VITALS: BP 107/83
[2018-05-22 05:40] LABS: HEPATITIS A AB IGM Negative (Negative); HEPATITIS B CORE AB IGM Negative (Negative); HEPATITS B SURFACE ANTIGEN Negative (Negative)
[2018-05-22 08:27] LABS: HEPATITIS C VIRUS ANTIBODY >11.0 s/co ratio (0.0-0.9)
== END 2018-05-20 17:01 | disposition home or self-care (01) ==
LOC: ER 11:16
DX: O26.91 Pregnancy related conditions, unspecified, first trimester (principal); R74.8 Abnormal levels of other serum enzymes; M54.5 Low back pain; R10.9 Unspecified abdominal pain; O99.331 Smoking (tobacco) complicating pregnancy, first trimester; Z3A.10 10 weeks gestation of pregnancy
CPT/HCPCS: 99284; 36415; 84702; 83690; 85025; 80053; 81001; 80307; 80074; 76801; 76770; 93976; J3490

== ENCOUNTER 2019-05-12 14:13 | Emergency (ER) | payer MEDICAID ==
--- NOTE | 2019-05-12 14:30 | ER Document Report ---
ED Medical Screen (RME) - General Chief Complaint: Skin Problem Stated Complaint: SKIN ISSUE Time Seen by Provider: 05/12/19 14:22 Mode of Arrival: Ambulatory Information source: Patient Notes: Patient presents to the emergency department with right elbow abscess. Reports it started on Monday after she was in a loft. She thinks she may have got bit by a bug. Patient did try to open the abscess herself. No complaints of fever vomiting diarrhea. Denies history of MRSA. Patient reports history of IV drug use over a year ago. She does report smoking a bowl of meth on Monday. I have greeted and performed a rapid initial assessment of this patient. A comprehensive ED assessment and evaluation of the patient, analysis of test results and completion of the medical decision making process will be conducted by additional ED providers. Dictation of this chart was performed using voice recognition software; therefore, there may be some unintended grammatical errors. TRAVEL OUTSIDE OF THE [place] IN LAST 30 DAYS: No - Related Data Allergies/Adverse Reactions: No Known Allergies Allergy (Verified 05/20/18 11:17) Past Medical History Renal/ Medical History: Denies: Hx Peritoneal Dialysis Psychiatric Medical History: Reports: Hx Anxiety Past Surgical History: Reports: Hx Adenoidectomy, Hx Tonsillectomy - & adenoids - Immunizations Immunizations up to date: Yes Hx Diphtheria, Pertussis, Tetanus Vaccination: No Physical Exam - Vital signs Vitals: Temp Pulse Resp BP Pulse Ox 98.7 F 140 H 20 128/82 H 100 05/12/19 14:17 05/12/19 14:17 05/12/19 14:17 05/12/19 14:17 05/12/19 14:17 Course - Vital Signs Vital signs: Temp Pulse Resp BP Pulse Ox 98.7 F 140 H 20 128/82 H 100 05/12/19 14:17 05/12/19 14:17 05/12/19 14:17 05/12/19 14:17 05/12/19 14:17
[2019-05-12 14:52] LABS: ABSOLUTE EOSINOPHILS # (AUTO) 0.1 10^3/uL (0.0-0.6); ABSOLUTE LYMPHOCYTES (AUTO) 1.1 10^3/uL (0.5-4.7); ABSOLUTE MONOCYTES (AUTO) 0.8 10^3/uL (0.1-1.4); ABSOLUTE NEUT (AUTO) 10.3 10^3/uL (1.7-8.2); BASOPHILS % (AUTO) 0.3 % (0-2); EOSINOPHILS % (AUTO) 0.7 % (0-6); HEMATOCRIT 34.6 % (36.0-47.0); HEMOGLOBIN 11.4 g/dL (12.0-15.5); MEAN CORPUSCULAR HEMOGLOBIN 27.5 pg (27.0-33.4); MEAN CORPUSCULAR HGB CONC 33.1 g/dL (32.0-36.0); MEAN CORPUSCULAR VOLUME 83 fl (80-97); MONOCYTES % (AUTO) 6.4 % (3-13); PLATELET COUNT 330 10^3/uL (150-450); RED BLOOD COUNT 4.16 10^6/uL (3.72-5.28); RED CELL DISTRIBUTION WIDTH 16.1 % (11.5-14.0); SEGMENTED NEUTROPHILS % (AUTO) 83.6 % (42-78); TOTAL CELLS COUNTED % (AUTO) 100 %; WHITE BLOOD COUNT 12.3 10^3/uL (4.0-10.5)
[2019-05-12 15:02] LABS: APPEARANCE,URINE CLEAR; BILIRUBIN,URINE NEGATIVE (NEGATIVE); COLOR,URINE STRAW; GLUCOSE, URINE NEGATIVE (NEGATIVE); KETONES,URINE NEGATIVE (NEGATIVE); LEUKOCYTE ESTERASE,URINE TRACE (NEGATIVE); NITRITE,URINE NEGATIVE (NEGATIVE); PROTEIN,URINE NEGATIVE (NEGATIVE); URINE SPECIFIC GRAVITY 1.003; UROBILINOGEN,URINE NEGATIVE mg/dL (<2.0)
[2019-05-12 15:11] LABS: ALANINE AMINOTRANSFERASE 118 U/L (9-52); ALBUMIN 4.2 g/dL (3.5-5.0); ALKALINE PHOSPHATASE 66 U/L (38-126); ANION GAP 10 (5-19); ASPARTATE AMINO TRANSFERASE 53 U/L (14-36); BILIRUBIN,DIRECT 0.2 mg/dL (0.0-0.4); BILIRUBIN,TOTAL 0.4 mg/dL (0.2-1.3); BLOOD UREA NITROGEN 6 mg/dL (7-20); CALCIUM 9.3 mg/dL (8.4-10.2); CARBON DIOXIDE 20 mmol/L (22-30); CHLORIDE 108 mmol/L (98-107); GLUCOSE 100 mg/dL (75-110); SODIUM 137.6 mmol/L (137-145); TOTAL PROTEIN 7.5 g/dL (6.3-8.2)
--- NOTE | 2019-05-12 15:30 | RADIOLOGY REPORT (SQ) ---
EXAM DESCRIPTION: ELBOW RIGHT AP/LAT COMPLETED DATE/TIME: 05/12/2019 3:02 pm REASON FOR STUDY: right elbow abscess, pain COMPARISON: None. NUMBER OF VIEWS: Four views. TECHNIQUE: AP, lateral, and both oblique radiographic images acquired of the right elbow. LIMITATIONS: Rotation. FINDINGS: MINERALIZATION: Normal. BONES: No acute fracture or dislocation. No worrisome bone lesions. JOINT: No effusion. SOFT TISSUES: Extensive soft tissue swelling over the olecranon and posterior forearm. OTHER: No other significant finding. IMPRESSION: No fracture or dislocation of the right elbow. No obvious elbow joint effusion on later al view limited by rotation. There is extensive soft tissue swelling over the olecranon and posterio r forearm. Recommend ultrasound or contrast-enhanced MRI to further evaluate for focal fluid collect ion if abscess is suspected. TECHNICAL DOCUMENTATION: JOB ID: [id number] [employer]- All Rights Reserved Reading location - IP/workstation name: [email or web address]
[2019-05-12] MEDS ORDERED: ACETAMINOPHEN 325 MG TABLET PO ONE (15:47)
[2019-05-12] MEDS ORDERED: NORMAL SALINE 1000 ML 1,000 ML IV ONE (15:47)
[2019-05-12] MEDS ORDERED: VANCOMYCIN HCL INJ 1000 MG VIAL IV ONE (15:48)
--- NOTE | 2019-05-12 15:56 | ER Document Report ---
ED General - General Chief Complaint: Skin Problem Stated Complaint: SKIN ISSUE Time Seen by Provider: 05/12/19 14:22 Mode of Arrival: Ambulatory TRAVEL OUTSIDE OF THE [place] IN LAST 30 DAYS: No - HPI Notes: Patient is a 29-year-old female that presents to the emergency department for chief complaint of right elbow pain. Patient states that Monday she had a small "boil" on her right elbow. She tried to kerri it with a needle on 2 occasions. She states she had bloody drainage but no purulent drainage. She states the area has become more red and swollen since Monday. She now has a throbbing hot pain to the right elbow that is worse with movement. She has not taken any [id number] medications for her pain. She denies associated fevers and chills. 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 She does endorse daily marijuana and tobacco use as well as frequent methamphetamine use. Her last meth use was Monday. LMP 03/27/2019. Patient also states that last night she had a sharp left adnexal pain that has since subsided to a dull ache. She denies any vaginal bleeding or vaginal discharge. She denies any known . Past Medical History: Negative Past Surgical History: Social History: Denies alcohol use. Reports daily tobacco and marijuana use. Frequent methamphetamine use. Family History: Reviewed and noncontributory for presenting illness Allergies: Reviewed, see documented allergy list. REVIEW OF SYSTEMS: CONSTITUTIONAL : No fever No chills No diaphoresis No recent illness EENT: No vision changes No congestion No sore throat CARDIOVASCULAR: No chest pain No palpitations RESPIRATORY: No shortness of breath No cough No difficulty breathing GASTROINTESTINAL: No abdominal pain No nausea No vomiting No diarrhea GENITOURINARY: Left adnexal pain No dysuria No hematuria No difficulty urinating MUSCULOSKELETAL: No back pain No leg pain Right arm pain SKIN: No rashes No lesions LYMPHATIC: No swollen, enlarged glands. NEUROLOGICAL: No lightheadedness No headache No weakness No paresthesias PSYCHIATRIC: No anxiety No depression PHYSICAL EXAMINATION: Vital signs reviewed, nursing noted reviewed. GENERAL: Well-appearing, well-nourished and in no acute distress. HEAD: Atraumatic, normocephalic. EYES: Eyes appear normal, extraocular movements intact, sclera anicteric, conjunctiva are normal. ENT: nares patent, oropharynx clear without exudates. Moist mucous membranes. NECK: Normal range of motion, supple without lymphadenopathy LUNGS: Breath sounds clear to auscultation bilaterally and equal. No wheezes rales or rhonchi. HEART: Tachycardic rate and regular rhythm without murmurs ABDOMEN: Soft, nontender, normoactive bowel sounds. No rebound, guarding, or rigidity. No masses appreciated. EXTREMITIES: Right elbow tenderness and decreased range of motion in extension, no bony deformity, no pitting or edema. NEUROLOGICAL: No focal neurological deficits. Moves all extremities spontaneously Motor and sensory grossly intact on exam. PSYCH: Anxious mood, normal affect, Fidgety SKIN: Warm, Dry, normal turgor, multiple pick doyle to upper and lower extremities. Right elbow erythema and edema with no appreciable focal fluctuance - Related Data Allergies/Adverse Reactions: No Known Allergies Allergy (Verified 05/20/18 11:17) Past Medical History - General Information source: Patient - Social History Smoking Status: Current Every Day Smoker Family History: Reviewed & Not Pertinent Patient has suicidal ideation: No Patient has homicidal ideation: No Renal/ Medical History: Denies: Hx Peritoneal Dialysis Psychiatric Medical History: Reports: Hx Anxiety Past Surgical History: Reports: Hx Adenoidectomy, Hx Tonsillectomy - & adenoids - Immunizations Immunizations up to date: Yes Hx Diphtheria, Pertussis, Tetanus Vaccination: No Physical Exam - Vital signs Vitals: Temp Pulse Resp BP Pulse Ox 98.7 F 140 H 20 128/82 H 100 05/12/19 14:17 05/12/19 14:17 05/12/19 14:17 05/12/19 14:17 05/12/19 14:17 Course - Re-evaluation Re-evalutation: 05/12/19 15:55 Vitals reviewed. Nursing notes reviewed. Patient was significantly tachycardic at presentation, this has improved without treatment. She does have a cellulitis to her right elbow with significant amount of soft tissue swelling. The anterior aspect of her elbow is normal in appearance. X-ray shows soft tissue swelling with no underlying bony injury. She does have a mild leukocytosis. Patient will be started on vancomycin for her cellulitis. Ultrasound will be obtained to evaluate for underlying abscess. Patient was also found to be which was a new diagnosis for her today. She was complaining of adnexal pain yesterday and ultrasound has been ordered. 05/12/19 18:17 Patient's ultrasound shows gestational sac with no pole. She is likely too early in her gestation to visualize a gestational sac. She does have elevated beta hCG levels consistent with her early gestation. Patient's abdominal pain has subsided and she has no focal tenderness to suggest ectopic rupture. Patient is not having any bleeding to necessitate RhoGam, she is Rh-. Patient was advised to stop all illicit drugs and tobacco and to begin taking vitamins. She was also advised that she needs to follow with the [facility] for close monitoring of her given that she has had pain and no pole can be visualized. [facility] but also told she could contact the health department. Patient does have a leukocytosis and slight elevation of ESR and CRP. There is no abscess seen on her right elbow on ultrasound. She is able to range her elbow without significant pain, most of her pain is elicited with palpation over the posterior aspect of her right elbow. At this point I am not suspicious of septic arthritis. Patient did receive vancomycin in the emergency room. She will be started on clindamycin for her right elbow cellulitis. Patient was told she needs to follow for wound reevaluation in the next 1 to 2 days and to return to the emergency room if she develops fevers increased redness or swelling to the right elbow. Patient is in agreement with this plan of care. She is stable at discharge. Laboratory 05/12/19 05/12/19 05/12/19 14:40 14:40 14:40 WBC 12.3 H RBC 4.16 Hgb 11.4 L Hct 34.6 L MCV 83 MCH 27.5 MCHC 33.1 RDW 16.1 H Plt Count 330 Seg Neutrophils % 83.6 H Lymphocytes % 9.0 L Monocytes % 6.4 Eosinophils % 0.7 Basophils % 0.3 Absolute Neutrophils 10.3 H Absolute Lymphocytes 1.1 Absolute Monocytes 0.8 Absolute Eosinophils 0.1 Absolute Basophils 0.0 ESR Sodium 137.6 Potassium 4.0 Chloride 108 H Carbon Dioxide 20 L Anion Gap 10 BUN 6 L Creatinine 0.54 Est GFR ( Amer) > 60 Est GFR (Non-Af Amer) > 60 Glucose 100 Lactic Acid Calcium 9.3 Total Bilirubin 0.4 Direct Bilirubin 0.2 Neonat Total Bilirubin Not Reportable Neonat Direct Bilirubin Not Reportable Neonat Indirect Bili Not Reportable AST 53 H ALT 118 H Alkaline Phosphatase 66 C-Reactive Protein 42.6 H Total Protein 7.5 Albumin 4.2 Beta HCG, Quant 4574.60 H Total Beta HCG POSITIVE Urine Color Urine Appearance Urine pH Ur Specific [place] Urine Protein Urine Glucose (UA) Urine Ketones Urine Blood Urine Nitrite Urine Bilirubin Urine Urobilinogen Ur Leukocyte Esterase Urine WBC (Auto) Urine RBC (Auto) Urine Bacteria (Auto) Squamous Epi Cells Auto Urine Mucus (Auto) Urine Ascorbic Acid Urine HCG, Qual Blood Type Antibody Screen Rhogam Indicated 05/12/19 05/12/19 05/12/19 14:40 14:47 16:30 WBC RBC Hgb Hct MCV MCH MCHC RDW Plt Count Seg Neutrophils % Lymphocytes % Monocytes % Eosinophils % Basophils % Absolute Neutrophils Absolute Lymphocytes Absolute Monocytes Absolute Eosinophils Absolute Basophils ESR 33 H Sodium Potassium Chloride Carbon Dioxide Anion Gap BUN Creatinine Est GFR ( Amer) Est GFR (Non-Af Amer) Glucose Lactic Acid 1.5 Calcium Total Bilirubin Direct Bilirubin Neonat Total Bilirubin Neonat Direct Bilirubin Neonat Indirect Bili AST ALT Alkaline Phosphatase C-Reactive Protein Total Protein Albumin Beta HCG, Quant Total Beta HCG Urine Color STRAW Urine Appearance CLEAR Urine pH 6.0 Ur Specific [place] 1.003 Urine Protein NEGATIVE Urine Glucose (UA) NEGATIVE Urine Ketones NEGATIVE Urine Blood NEGATIVE Urine Nitrite NEGATIVE Urine Bilirubin NEGATIVE Urine Urobilinogen NEGATIVE Ur Leukocyte Esterase TRACE H Urine WBC (Auto) 1 Urine RBC (Auto) 1 Urine Bacteria (Auto) TRACE Squamous Epi Cells Auto 1 Urine Mucus (Auto) RARE Urine Ascorbic Acid NEGATIVE Urine HCG, Qual POSITIVE H Blood Type Antibody Screen Rhogam Indicated 05/12/19 16:30 WBC RBC Hgb Hct MCV MCH MCHC RDW Plt Count Seg Neutrophils % Lymphocytes % Monocytes % Eosinophils % Basophils % Absolute Neutrophils Absolute Lymphocytes Absolute Monocytes Absolute Eosinophils Absolute Basophils ESR Sodium Potassium Chloride Carbon Dioxide Anion Gap BUN Creatinine Est GFR ( Amer) Est GFR (Non-Af Amer) Glucose Lactic Acid Calcium Total Bilirubin Direct Bilirubin Neonat Total Bilirubin Neonat Direct Bilirubin Neonat Indirect Bili AST ALT Alkaline Phosphatase C-Reactive Protein Total Protein Albumin Beta HCG, Quant Total Beta HCG Urine Color Urine Appearance Urine pH Ur Specific [place] Urine Protein Urine Glucose (UA) Urine Ketones Urine Blood Urine Nitrite Urine Bilirubin Urine Urobilinogen Ur Leukocyte Esterase Urine WBC (Auto) Urine RBC (Auto) Urine Bacteria (Auto) Squamous Epi Cells Auto Urine Mucus (Auto) Urine Ascorbic Acid Urine HCG, Qual Blood Type A NEGATIVE Antibody Screen NEGATIVE Rhogam Indicated RHOGAM NOT REQUESTED Elbow X-Ray 05/12/19 14:27 IMPRESSION: No fracture or dislocation of the right elbow. No obvious elbow joint effusion on lateral view limited by rotation. There is extensive soft tissue swelling over the olecranon and posterior forearm. Recommend ultrasound or contrast-enhanced MRI to further evaluate for focal fluid collection if abscess is suspected. Extremity Ultrasound 05/12/19 15:46 IMPRESSION: Mild edema. No fluid collection. No foreign bodies identified. Obstetrics Ultrasound 05/12/19 15:46 IMPRESSION: 9 mm ovoid cystic structure in the upper body endometrium, possible gestational sac. No pole or yolk sac identified on this transabdominal exam. FOLLOW-UP ULTRASOUND AND SERIAL BHCG LEVELS STRONGLY RECOMMENDED TO ACCURATELY ASSESS STATUS. - Vital Signs Vital signs: Temp Pulse Resp BP Pulse Ox 98.7 F 103 H 16 116/65 100 05/12/19 14:17 05/12/19 15:27 05/12/19 15:27 05/12/19 15:27 05/12/19 15:27 - Laboratory Result Diagrams: 05/12/19 14:40 05/12/19 14:40 Laboratory results interpreted by me: 05/12/19 05/12/19 05/12/19 14:40 14:40 14:40 WBC 12.3 H Hgb 11.4 L Hct 34.6 L RDW 16.1 H Seg Neutrophils % 83.6 H Lymphocytes % 9.0 L Absolute Neutrophils 10.3 H ESR Chloride 108 H Carbon Dioxide 20 L BUN 6 L AST 53 H ALT 118 H C-Reactive Protein 42.6 H Beta HCG, Quant 4574.60 H Ur Leukocyte Esterase Urine HCG, Qual 05/12/19 05/12/19 14:40 14:47 WBC Hgb Hct RDW Seg Neutrophils % Lymphocytes % Absolute Neutrophils ESR 33 H Chloride Carbon Dioxide BUN AST ALT C-Reactive Protein Beta HCG, Quant Ur Leukocyte Esterase TRACE H Urine HCG, Qual POSITIVE H Discharge - Discharge Clinical Impression: Cellulitis of right elbow Qualifiers: Weeks of gestation: less than 8 weeks Qualified Code(s): Z3A.01 - Less than 8 weeks gestation of Condition: Stable Disposition: HOME, SELF-CARE Instructions: Cellulitis ([facility]), Pelvic Pain in ([facility]) Additional Instructions: Please return to the emergency department if you have any worsening, or concern of your symptoms. Please return to the emergency department if you develop increased redness and swelling over your right elbow, fevers, difficulty breathing, severe abdominal pain, or ongoing vomiting. Please follow-up with your primary care physician in 2-3 days and any other recommended physicians. If prescribed, take all medications as directed. If you have any questions or concerns do not hesitate to return the emergency department for evaluation. Stop using methamphetamine, tobacco, marijuana and other illicit drugs while p regnant Begin taking vitamins You need to have your beta hCG hormone levels followed closely in the next 2 to 3 days to follow your early gestation. Please contact [facility] to establ monica an appointment tomorrow for follow-up. Prescriptions: Clindamycin HCl [Cleocin HCl] 450 mg PO Q6 10 Days capsule Referrals: [facility] [Provider Group] - Follow up as needed [facility] [Provider Group] - Follow up tomorrow [facility] [Provider Group] - 05/13/19
[2019-05-12 16:55] LABS: C-REACTIVE PROTEIN 42.6 mg/L (<10.0)
--- NOTE | 2019-05-12 17:21 | RADIOLOGY REPORT (SQ) ---
EXAM DESCRIPTION: U/S EXTREMITY NONVASCULAR LTD COMPLETED DATE/TIME: 05/12/2019 4:38 pm REASON FOR STUDY: elbow abscess COMPARISON: None. TECHNIQUE: Dynamic and static grayscale images acquired of the localized site of clinical concern an d recorded on PACS. Additional selected color Doppler and spectral images recorded. SITE OF CONCERN: right elbow LIMITATIONS: None. FINDINGS: Mild edema. No fluid collection. No foreign bodies identified. OTHER: No other significant finding. IMPRESSION: Mild edema. No fluid collection. No foreign bodies identified. TECHNICAL DOCUMENTATION: JOB ID: [id number] 2010 [employer]- All Rights Reserved Reading location - IP/workstation name: [email or web address]
--- NOTE | 2019-05-12 17:25 | RADIOLOGY REPORT (SQ) ---
EXAM DESCRIPTION: U/S [id number] TRNABD 1GES W/ODOP COMPLETED DATE/TIME: 05/12/2019 4:41 pm REASON FOR STUDY: left adnexal pain COMPARISON: None. TECHNIQUE: Transabdominal static and realtime grayscale images acquired of the pelvis. Additional se lected spectral and color Doppler images recorded. All images stored on PACs. CLINICAL AGE: 6 weeks BHCG: Pending. LIMITATIONS: None. FINDINGS: UTERUS: 9 mm ovoid cystic structure in the upper body endometrium, possible gestational sa c. No pole or yolk sac identified on this transabdominal exam. RIGHT ADNEXA: Normal ovary with normal vascular flow. No adnexal free fluid. No adnexal masses. LEFT ADNEXA: Normal ovary with normal vascular flow. No adnexal free fluid. No adnexal masses. FREE FLUID: None. OTHER: No other significant finding. IMPRESSION: 9 mm ovoid cystic structure in the upper body endometrium, possible gestational sac. No pole or yolk sac identified on this transabdominal exam. FOLLOW-UP ULTRASOUND AND SERIAL BHCG LEVELS STRONGLY RECOMMENDED TO ACCURATELY ASSESS STATU S. TECHNICAL DOCUMENTATION: JOB ID: [id number] 2010 [employer]- All Rights Reserved Reading location - IP/workstation name: [email or web address]
[2019-05-12 18:38] VITALS: BP 104/64
== END 2019-05-12 18:52 | disposition home or self-care (01) ==
LOC: ER 14:13
DX: O99.711 Diseases of the skin and subcutaneous tissue complicating pregnancy, first trimester (principal); L03.113 Cellulitis of right upper limb; O26.891 Other specified pregnancy related conditions, first trimester; R10.2 Pelvic and perineal pain; R00.0 Tachycardia, unspecified; O99.111 Other diseases of the blood and blood-forming organs and certain disorders involving the immune mechanism complicating pregnancy, first trimester; D72.829 Elevated white blood cell count, unspecified; O99.331 Smoking (tobacco) complicating pregnancy, first trimester; F17.200 Nicotine dependence, unspecified, uncomplicated; Z3A.01 Less than 8 weeks gestation of pregnancy; Z86.14 Personal history of Methicillin resistant Staphylococcus aureus infection
CPT/HCPCS: 86900; 86901; 36415; 87040; 86850; 84702; 85025; 85652; 81025; 86140; 80053; 81001; 83605; 73070; 76882; 76801; J3490; J7030; J3370

== ENCOUNTER 2019-05-20 12:48 | Inpatient (IN) | payer MEDICAID ==
[2019-05-20] MEDS ORDERED: MORPHINE SULFATE 10 MG/ML INJ IM ONE (13:09)
--- NOTE | 2019-05-20 13:18 | ER Document Report ---
ED Medical Screen (RME) - General Chief Complaint: Arm Pain Stated Complaint: RIGHT ELBOW PAIN/SWELLING Time Seen by Provider: 05/20/19 13:04 Mode of Arrival: Ambulatory Information source: Patient Notes: 29-year-old female presented to ED for complaint of pain swelling and redness to the right elbow. She states she was recently seen here for cellulitis to the elbow she took all her antibiotics as ordered. She states the pain is swelling was improved for little while but is come back and is much worse now. Her elbow is very red inflamed and swollen. She is . When she was hit the last time her ultrasound did not show a heart tone but did show a possible gestation sac. Patient is requesting pain medicines. I explained to her when she is that the baby will get whenever I get her. She states she knows that she had Percocet with her last child due to back pain and she would like some for her pain. I have greeted and performed a rapid initial assessment of this patient. A comprehensive ED assessment and evaluation of the patient, analysis of test results and completion of medical decision making process will be conducted by an additional ED providers. Dictation of this chart was performed using voice recognition software; therefore, there may be some unintended grammatical errors. TRAVEL OUTSIDE OF THE [place] IN LAST 30 DAYS: No - Related Data Allergies/Adverse Reactions: No Known Allergies Allergy (Verified 05/20/18 11:17) Past Medical History - Social History Chew tobacco use (# tins/day): No Frequency of alcohol use: None Drug Abuse: Marijuana Renal/ Medical History: Denies: Hx Peritoneal Dialysis Psychiatric Medical History: Reports: Hx Anxiety Past Surgical History: Reports: Hx Adenoidectomy, Hx Section, Hx Tonsillectomy - & adenoids - Immunizations Immunizations up to date: Yes Hx Diphtheria, Pertussis, Tetanus Vaccination: No Physical Exam - Vital signs Vitals: Temp Pulse Resp BP Pulse Ox 97.8 F 108 H 22 H 145/77 H 100 05/20/19 13:07 05/20/19 13:07 05/20/19 13:05/20/19 13:05/20/19 13:07 Course - Vital Signs Vital signs: Temp Pulse Resp BP Pulse Ox 97.8 F 108 H 22 H 145/77 H 100 05/20/19 13:07 05/20/19 13:07 05/20/19 13:07 05/20/19 13:07 05/20/19 13:07
[2019-05-20 13:54] LABS: ABSOLUTE EOSINOPHILS # (AUTO) 0.2 10^3/uL (0.0-0.6); ABSOLUTE LYMPHOCYTES (AUTO) 1.6 10^3/uL (0.5-4.7); ABSOLUTE NEUT (AUTO) 10.6 10^3/uL (1.7-8.2); BASOPHILS % (AUTO) 0.4 % (0-2); EOSINOPHILS % (AUTO) 1.5 % (0-6); HEMATOCRIT 35.1 % (36.0-47.0); HEMOGLOBIN 11.6 g/dL (12.0-15.5); LYMPHOCYTES % (AUTO) 12.3 % (13-45); MEAN CORPUSCULAR HEMOGLOBIN 27.5 pg (27.0-33.4); MEAN CORPUSCULAR HGB CONC 33.1 g/dL (32.0-36.0); MEAN CORPUSCULAR VOLUME 83 fl (80-97); MONOCYTES % (AUTO) 7.1 % (3-13); PLATELET COUNT 510 10^3/uL (150-450); RED BLOOD COUNT 4.22 10^6/uL (3.72-5.28); RED CELL DISTRIBUTION WIDTH 16.1 % (11.5-14.0); SEGMENTED NEUTROPHILS % (AUTO) 78.7 % (42-78); TOTAL CELLS COUNTED % (AUTO) 100 %; WHITE BLOOD COUNT 13.4 10^3/uL (4.0-10.5)
--- NOTE | 2019-05-20 14:09 | RADIOLOGY REPORT (SQ) ---
EXAM DESCRIPTION: ELBOW RIGHT AP/LAT COMPLETED DATE/TIME: 05/20/2019 1:59 pm REASON FOR STUDY: pain swelling infection COMPARISON: 05/12/2019 NUMBER OF VIEWS: Two views. TECHNIQUE: AP and lateral radiographic images acquired of the right elbow. LIMITATIONS: None. FINDINGS: MINERALIZATION: Normal. BONES: No acute fracture or dislocation. No worrisome bone lesions. JOINT: No effusion. SOFT TISSUES: There is a large soft tissue swelling over the olecranon process, which is significantl y increased in size compared to prior examination dated 05/12/2019. OTHER: No other significant finding. IMPRESSION: There is a large soft tissue swelling over the olecranon process, which is significantly increased in size compared to prior examination dated 05/12/2019. In the stated setting of infection , this is concerning for abscess. Consider contrast-enhanced CT, MRI, or ultrasound to further evalu ate for local fluid collection. TECHNICAL DOCUMENTATION: JOB ID: [id number] [employer]- All Rights Reserved Reading location - IP/workstation name: [email or web address]
[2019-05-20 14:15] LABS: ALANINE AMINOTRANSFERASE 90 U/L (9-52); ALKALINE PHOSPHATASE 112 U/L (38-126); ANION GAP 13 (5-19); ASPARTATE AMINO TRANSFERASE 47 U/L (14-36); BILIRUBIN,DIRECT 0.3 mg/dL (0.0-0.4); BILIRUBIN,TOTAL 0.4 mg/dL (0.2-1.3); BLOOD UREA NITROGEN 10 mg/dL (7-20); C-REACTIVE PROTEIN 60.5 mg/L (<10.0); CALCIUM 9.5 mg/dL (8.4-10.2); CARBON DIOXIDE 21 mmol/L (22-30); CHLORIDE 105 mmol/L (98-107); GLUCOSE 105 mg/dL (75-110); SODIUM 138.9 mmol/L (137-145); TOTAL PROTEIN 7.7 g/dL (6.3-8.2)
[2019-05-20 14:56] LABS: ALBUMIN 4.2 g/dL (3.5-5.0)
--- NOTE | 2019-05-20 15:06 | ER Document Report ---
HPI - HPI Patient complains to provider of: right elbow abscess, Time Seen by Provider: 05/20/19 13:04 Onset: Last week Onset/Duration: Gradual Quality of pain: Achy Severity: Moderate Pain Level: 5 Context: 29-year-old female with a history of hepatitis C who is approximately 7 weeks 5 days with a last menstrual period of 03/27/2019 here for worsening right elbow pain, redness, and swelling for the last week or more. She was seen and evaluated here 8 days ago and placed on clindamycin 450mg 4 times daily for 10 days however she states that the pain, redness and swelling have become worse. She has had subjective fevers. She denies any related complaints. She has had intermittent numbness and tingling in her right hand. She is right- handed. She does endorse IV drug abuse but states she has not used in about 2- 1/2 years. Prior notes state she continues to use meth. She is G2, P1. She had a white count of 12 when she was here 8 days ago and an unremarkable right elbow x-ray and ultrasound of right upper extremity. She returns today for worsening symptoms. She states Tylenol is not controlling her pain and is requesting pain control. last PO intake was around 3pm and was just a few cheeto h, otherwise pts states she hasn't had anything to eat or drink today other than half of a pepsi. no other recent abx or steroids. no hx of diabetes or asthma. pain is worse with movement and better with rest. warm compresses haven't helped. denies drainage. denies trauma. no surgeries on this extremity. no hx of gout., she states a "bug bit her [place]" that initially caused the redness and swelling of the area. hx of mrsa and vre per prior records. She denies any other complaints at this time. Exacerbated by: Movement Relieved by: Remaining still Similar symptoms previously: Yes Recently seen / treated by doctor: Yes - REPRODUCTIVE Reproductive: REPORTS: : Past Medical History - General Information source: Patient - Social History Smoking Status: Current Every Day Smoker Chew tobacco use (# tins/day): No Frequency of alcohol use: None Drug Abuse: Marijuana, Methamphetamine, Other - past IV drug use Family History: Reviewed & Not Pertinent Patient has suicidal ideation: No Patient has homicidal ideation: No Renal/ Medical History: Denies: Hx Peritoneal Dialysis Psychiatric Medical History: Reports: Hx Anxiety Infectious Medical History: Reports: Hx Hepatitis, Hx MRSA, Hx VRE Past Surgical History: Reports: Hx Adenoidectomy, Hx Section, Hx Ton sillectomy - & adenoids - Immunizations Immunizations up to date: Yes Hx Diphtheria, Pertussis, Tetanus Vaccination: No Vertical Provider Document - CONSTITUTIONAL Notes: >>>> PHYSICAL_EXAM: GENERAL_APPEARANCE: well_nourished, alert, cooperative, no_acute_distress, mild_obvious_discomfort. pleasant, thin young white female, appears uncomfortable, speaking in full sentences, in no sign of resp distress, grandmother and family member at bedside. VITALS: reviewed, see vital signs table. HEAD: no_swelling\\tenderness on the head. normocephalic. atraumatic. no gómez signs. no raccoons eyes. EYES: PERRL, EOMI, conjunctiva_clear. NOSE: no_nasal_discharge. MOUTH: (-)decreased moisture. THROAT: no_tonsilar_inflammation, no_airway_obstruction. no_lymphadenopathy NECK: supple, no_neck_tenderness, (-)thyromegaly. full rom. full strength. no meningeal signs. no sign of central cord syndrome. BACK: no_back_tenderness. CHEST_WALL: no_chest_tenderness. no overlying skin changes LUNGS: no_wheezing, ctab (-)accessory muscle use, good air exchange bilateral. HEART: normal_rate, normal_rhythm, ABDOMEN: normal_BS, soft, no_abd_tenderness, uterus not palpable on exam, (- )guarding, (-)rebound, no distension or peritoneal signs. no cva ttp EXTREMITIES: strength 5/5 in all_extremities, good pulses in all_extremities, no_swelling\\tenderness in the extremities, no_edema. full rom in all extremities unless otherwise noted. normal gait. good pulses. brisk cap refill. good hand child welfare manager. NEURO: motor and sensation intact, cranial nerves 2-12 intact, cerebellar fxn intact SKIN: warm, dry, good_color, no_rash however there is an impressive approx 8 cm x 8 cm fluctuant erythematous abscess on the olecranon of her right elbow that is ttp with some pustules on it. there is no streaking, drainage, or bleeding. multiple tract doyle on the pts arms and legs bilat. the pt has slight decreased rom in the right elbow secondary to the swelling and pain only and can't fully extend or flex it. doesn't appear septic or gout like however. no sign of compartment syndrome MENTAL_STATUS: speech_clear, oriented_X_3, normal_affect, responds_appr opriately to questions. - INFECTION CONTROL TRAVEL OUTSIDE OF THE [place] IN LAST 30 DAYS: No Course - Re-evaluation Re-evalutation: 05/20/19 17:42 Patient here for worsening abscess of her right elbow over the last 8 days despite taking clindamycin 450 mg 4 times daily. She is approximately 7 weeks 5 days and does have a history of hepatitis C with IV drug abuse in the past. She endorses subjective fevers. No change in neurologic. Her labs are notable for a worsening white count 13,000, increasing sed rate, and worsening x-ray concerning for abscess. Secondary to failure of outpatient treatment with antibiotics, patient's history, and physical exam I did consult on-call surgeon, Dr. Olivas, who came down to the ER and evaluated the patient states he would take the patient to the OR for I&D of the area. He requested n.p.o., fluids, vancomycin and Zosyn IV which i did start. He also requested I consult hospitalist for admission for medical management and he would consult and handle the surgical aspect of it. I did then speak with hospitalist, Dr. Howard, who requested that I call on-call HOT DIP PLATING SUPERVISOR to see if they would admit the patient because the patient is however only 7 weeks, and he states that if HOT DIP PLATING SUPERVISOR does not feel complementing the patient to call him back in they would admit the patient. I did call and speak with Dr. hernandez, HOT DIP PLATING SUPERVISOR on-call, for Dr. Conti who was the artificial insemination technician OBGYN who stated he was in a medical emergency and could not return phone calls at this time per the power generation turbine room operator. Dr. hernandez then stated that there is nothing from an OB standpoint that can or needs to be done as the patient was previable at this time and heart tones could not even be done. Patient has already had an ultrasound done that did not show much as it was too early in the . She denies any related complaints. Dr. hernandez felt that hospitalist should admit the patient for medical management and surgery should handle the surgical aspect. I did then call back and speak with hospitalist, Dr. Howard, who did then agree to come down to the ER to evaluate the patient for admission. Care transferred to hospitalist and surgery in stable condition. Please refer to their notes for further details of the visit. pt also requested pain control and understood that any narcotic pain meds could be detrimental to the and she still wished to have narcotic pain control. vss. ++I independently evaluated this patient along with Dr. Liu who also saw and evaluated this pt++Documentation achieved through voice recording which may despite best efforts include some typographical errors++ Category Date Time Status Adult Intake and Output [RC] Q6 Care 05/20/19 17:41 Active Bedrest [RC] .ROUTINE Care 05/20/19 17:41 Active NPO (ED) NOW Care 05/20/19 16:37 Completed Patient Education-VTE [RC] QSHIFT Care 05/20/19 17:44 Active Patient Status-Admission .Routine Care 05/20/19 17:41 Active Consult Documentation [RC] ANDRES Cons 05/20/19 17:42 Active Physician [CONS] Routine Cons 05/20/19 17:41 Ordered NPO Diet [DIET] Diet 05/20/19 Dinner Active ELBOW RIGHT AP/LAT [RAD] Stat Exams 05/20/19 13:05 Completed BLOOD CULTURE [MC] Stat Lab 05/20/19 15:06 Received CBC WITH DIFF [HEME] IN AM Lab 05/21/19 06:00 Ordered CBC WITH DIFF [HEME] Stat Lab 05/20/19 13:13 Completed COMPREHENSIVE METABOLIC PANEL [CHEM] IN AM Lab 05/21/19 06:00 Ordered COMPREHENSIVE METABOLIC PANEL [CHEM] Stat Lab 05/20/19 13:13 Completed CREATINE KINASE MB [CHEM] Stat Lab 05/20/19 13:13 Completed CREATINE KINASE [CHEM] Q6H Lab 05/20/19 17:45 Ordered CREATINE KINASE [CHEM] Q6H Lab 05/20/19 23:45 Ordered CREATINE KINASE [CHEM] Q6H Lab 05/21/19 05:45 Ordered CRP [C-REACTIVE PROTEIN] [CHEM] Stat Lab 05/20/19 13:13 Completed ERYTHROCYTE SEDIMENTATION RATE [HEME] Stat Lab 05/20/19 15:06 Completed HCG QUANTITATIVE [CHEM] Stat Lab 05/20/19 13:13 Completed LACTIC ACID SEPSIS [CHEM] Stat Lab 05/20/19 13:13 Completed MAGNESIUM [CHEM] IN AM Lab 05/21/19 06:00 Ordered PROTHROMBIN TIME/INR [COAG] Routine Lab 05/20/19 17:43 Ordered THYROID STIMULATING HORMONE [CHEM] IN AM Lab 05/21/19 06:00 Ordered TROPONIN I [CHEM] Q6H Lab 05/20/19 17:45 Ordered TROPONIN I [CHEM] Q6H Lab 05/20/19 23:45 Ordered TROPONIN I [CHEM] Q6H Lab 05/21/19 05:45 Ordered URINALYSIS [URIN] Stat Lab 05/20/19 16:46 Completed URINE DRUG SCREEN [CHEM] Stat Lab 05/20/19 16:46 Received Hydromorphone HCl/Pf [Dilaudid Inj/Pf 2 mg/ml Ampule] Med 05/20/19 16:25 Discontinued 1 mg IV NOW ONE Morphine Sulfate [Morphine 10 mg/ml Inj] Med 05/20/19 13:09 Discontinued 2 mg IM NOW ONE Normal Saline 1000 ml [NaCl 0.9% 1000 ml IV Soln] 1,000 Med 05/20/19 16:27 Discontinued ml IV BOLUS Normal Saline 1000 ml [NaCl 0.9% 1000 ml IV Soln] 1,000 Med 05/20/19 17:41 Ordered ml IV CONTINUOUS Ondansetron HCl/Pf [Zofran Inj/Pf 4 mg/2 ml Sdv] Med 05/20/19 16:25 Discontinued 4 mg IV NOW ONE Ondansetron HCl/Pf [Zofran Inj/Pf 4 mg/2 ml Sdv] Med 05/20/19 17:41 Ordered 4 mg IV Q8HP PRN Piperacillin Sodium/Tazobactam [Zosyn Inj 3.375 gm Vial Med 05/20/19 16:27 Discontinued ] 3.375 gm IV IVBAG (ED) ONE Vancomycin HCl [Vancocin Inj 1000 mg Vial] Med 05/20/19 16:27 Discontinued 1,000 mg IV NOW ONE Mechanical Prophylaxis .ROUTINE Oth 05/20/19 17:45 Ordered Pharmacological Prophylaxis .ROUTINE Oth 05/20/19 17:45 Ordered Resuscitation Status Routine Oth 05/20/19 17:41 Ordered SCD QSHIFT Ot 05/20/19 17:44 Active Vital Signs [RC] Q4H Oth 05/20/19 17:41 Active Weight [RC] Q6AM Ot 05/20/19 17:41 Active Oxygen Nasal Cannula 2 lpm Ther 05/20/19 17:43 Active 05/20/19 17:50 - Vital Signs Vital signs: Temp Pulse Resp BP Pulse Ox 97.8 F 108 H 22 H 145/77 H 100 05/20/19 13:07 05/20/19 13:07 05/20/19 13:07 05/20/19 13:07 05/20/19 13:07 - Laboratory Result Diagrams: 05/20/19 13:13 05/20/19 13:13 Laboratory results interpreted by me: 05/20/19 05/20/19 13:13 13:13 WBC 13.4 H Hgb 11.6 L Hct 35.1 L RDW 16.1 H Plt Count 510 H Seg Neutrophils % 78.7 H Lymphocytes % 12.3 L Absolute Neutrophils 10.6 H Carbon Dioxide 21 L AST 47 H ALT 90 H C-Reactive Protein 60.5 H Beta HCG, Quant 06012.00 H 05/20/19 17:46 Labs- Entire Visit 05/20/19 05/20/19 05/20/19 13:13 13:13 13:13 WBC 13.4 H RBC 4.22 Hgb 11.6 L Hct 35.1 L MCV 83 MCH 27.5 MCHC 33.1 RDW 16.1 H Plt Count 510 H Seg Neutrophils % 78.7 H Lymphocytes % 12.3 L Monocytes % 7.1 Eosinophils % 1.5 Basophils % 0.4 Absolute Neutrophils 10.6 H Absolute Lymphocytes 1.6 Absolute Monocytes 1.0 Absolute Eosinophils 0.2 Absolute Basophils 0.0 ESR Cancelled Sodium 138.9 Potassium 4.0 Chloride 105 Carbon Dioxide 21 L Anion Gap 13 BUN 10 Creatinine 0.57 Est GFR ( Amer) > 60 Est GFR (Non-Af Amer) > 60 Glucose 105 Lactic Acid Calcium 9.5 Total Bilirubin 0.4 Direct Bilirubin 0.3 Neonat Total Bilirubin Not Reportable Neonat Direct Bilirubin Not Reportable Neonat Indirect Bili Not Reportable AST 47 H ALT 90 H Alkaline Phosphatase 112 CK-MB (CK-2) 1.09 C-Reactive Protein 60.5 H Total Protein 7.7 Albumin 4.2 Beta HCG, Quant 40760.00 H Total Beta HCG POSITIVE Urine Color Urine Appearance Urine pH Ur Specific [place] Urine Protein Urine Glucose (UA) Urine Ketones Urine Blood Urine Nitrite Urine Bilirubin Urine Urobilinogen Ur Leukocyte Esterase Urine WBC (Auto) Urine RBC (Auto) Squamous Epi Cells Auto Urine Mucus (Auto) Urine Ascorbic Acid 05/20/19 05/20/19 05/20/19 13:13 15:06 16:46 WBC RBC Hgb Hct MCV MCH MCHC RDW Plt Count Seg Neutrophils % Lymphocytes % Monocytes % Eosinophils % Basophils % Absolute Neutrophils Absolute Lymphocytes Absolute Monocytes Absolute Eosinophils Absolute Basophils ESR 59 H Sodium Potassium Chloride Carbon Dioxide Anion Gap BUN Creatinine Est GFR ( Amer) Est GFR (Non-Af Amer) Glucose Lactic Acid 1.8 Calcium Total Bilirubin Direct Bilirubin Neonat Total Bilirubin Neonat Direct Bilirubin Neonat Indirect Bili AST ALT Alkaline Phosphatase CK-MB (CK-2) C-Reactive Protein Total Protein Albumin Beta HCG, Quant Total Beta HCG Urine Color YELLOW Urine Appearance CLEAR Urine pH 6.0 Ur Specific [place] 1.039 Urine Protein 30 H Urine Glucose (UA) NEGATIVE Urine Ketones NEGATIVE Urine Blood NEGATIVE Urine Nitrite NEGATIVE Urine Bilirubin SMALL H Urine Urobilinogen NEGATIVE Ur Leukocyte Esterase TRACE H Urine WBC (Auto) 10 Urine RBC (Auto) 5 Squamous Epi Cells Auto 2 Urine Mucus (Auto) FEW Urine Ascorbic Acid NEGATIVE - Diagnostic Test Radiology reviewed: Image reviewed, Reports reviewed Radiology results interpreted by me: 05/20/19 17:46 Elbow X-Ray 05/20/19 13:05 IMPRESSION: There is a large soft tissue swelling over the olecranon process, which is significantly increased in size compared to prior examination dated 05/12/2019. In the stated setting of infection, this is concerning for abscess. Consider contrast-enhanced CT, MRI, or ultrasound to further evaluate for local fluid collection. Discharge - Discharge Clinical Impression: Abscess of bursa, right elbow, History of hepatitis C, History of intravenous drug abuse Qualifiers: Weeks of gestation: less than 8 weeks Qualified Code(s): Z3A.01 - Less than 8 weeks gestation of Leukocytosis Qualifiers: Leukocytosis type: unspecified Qualified Code(s): D72.829 - Elevated white blood cell count, unspecified Condition: Fair Disposition: ADMITTED INPATIENT Admitting Provider: Anita (Hospitalist) - consulted at 5:10p and 5:30p again when he then agreed to come down to th ED to admit the pt Unit Admitted: Surgical Floor Instructions: Abscess ([facility])
[2019-05-20] MEDS ORDERED: ONDANSETRON HCL INJ/PF 4 MG/2 ML SDV IV ONE (16:25)
[2019-05-20] MEDS ORDERED: HYDROMORPHONE HCL INJ/PF 2 MG/ML AMPULE IV ONE (16:25)
[2019-05-20] MEDS ORDERED: NORMAL SALINE 1000 ML 1,000 ML IV ONE (16:27)
[2019-05-20] MEDS ORDERED: PIPERACILLIN/TAZOBACTAM 3.375 GM VIAL IV ONE (16:27)
[2019-05-20] MEDS ORDERED: VANCOMYCIN HCL INJ 1000 MG VIAL IV ONE (16:27)
[2019-05-20 17:13] LABS: APPEARANCE,URINE CLEAR; BILIRUBIN,URINE SMALL (NEGATIVE); COLOR,URINE YELLOW; GLUCOSE, URINE NEGATIVE (NEGATIVE); KETONES,URINE NEGATIVE (NEGATIVE); LEUKOCYTE ESTERASE,URINE TRACE (NEGATIVE); NITRITE,URINE NEGATIVE (NEGATIVE); PROTEIN,URINE 30 mg/dL (NEGATIVE); UROBILINOGEN,URINE NEGATIVE mg/dL (<2.0)
[2019-05-20 17:15] LABS: URINE SPECIFIC GRAVITY 1.039
--- NOTE | 2019-05-20 17:23 | PDOC CONSULTATION ---
Consultation Consult Date: 05/20/19 Attending physician:: MALU DAILEY Provider Consulted: GETACHEW STEINER Consult reason:: Right elbow abscess History of Present Illness Patient complains of: Right elbow pain and drainage History of Present Illness: AYDE CONNELL is a 29 year old female Who presents to the emergency department with persisting right elbow swelling, drainage, pain, and redness. She was seen in the emergency department 8 days ago complaining of similar symptoms. She was felt to have cellulitis of the right elbow, and was treated with IV then oral antibiotics. She took the oral antibiotics at home, but symptoms worsen. She seen in the emergency department where she had a follow-up x-ray which showed no evidence of foreign body, but worse swelling compared to 1 week ago; patient is a known IV drug abuser but states she has not injected in several years. She was also discovered to be , first trimester. She is being admitted to the hospital service with surgery consulting. Past Medical History Past Medical History: History of IV drug abuse, history of hepatitis C Past Surgical History Past Surgical History: History of abscess drainage Past Surgical History: Reports: Adenoidectomy, Section, Tonsillectomy - & adenoids Social History Smoking Status: Current Every Day Smoker Drugs: Other - History of IV drug abuse Family History Family History: None, Reviewed & Not Pertinent Parental Family History Reviewed: No Children Family History Reviewed: No Sibling(s) Family History Reviewed.: No Medication/Allergy Home Medications: Dicyclomine HCl [Bentyl 20 mg Tablet] 20 mg PO QID #14 tablet 03/15/16 Dicyclomine HCl [Bentyl 10 mg Capsule] 1 cap PO TID #14 cap 04/29/17 Cephalexin Monohydrate [Keflex 500 mg Capsule] 500 mg PO QID #28 capsule 03/17/18 Ibuprofen [Motrin 600 mg Tablet] 600 mg PO Q8HP PRN #30 tablet 03/17/18 Sulfamethoxazole/Trimethoprim [Sulfamethoxazole-Tmp Ds Tablet] 1 each PO BID #14 tablet 03/17/18 Clindamycin HCl [Cleocin HCl] 450 mg PO Q6 10 Days capsule 05/12/19 Allergies/Adverse Reactions: No Known Allergies Allergy (Verified 05/20/18 11:17) Review of Systems ROS unobtainable: Other - Not obtained Physical Exam Vital Signs: Temp Pulse Resp BP Pulse Ox 97.8 F 108 H 22 H 145/77 H 100 05/20/19 13:07 05/20/19 13:07 05/20/19 13:07 05/20/19 13:07 05/20/19 13:07 Intake & Output 05/19/19 05/20/19 05/21/19 06:59 06:59 06:59 Weight 49.9 kg General appearance: PRESENT: mild distress Head exam: PRESENT: normocephalic Eye exam: PRESENT: EOMI Respiratory exam: PRESENT: clear to auscultation nathaniel Cardiovascular exam: PRESENT: RRR Pulses: PRESENT: normal carotid pulses, normal radial pulses GI/Abdominal exam: PRESENT: soft - Soft, nontender Rectal exam: PRESENT: deferred, other Musculoskeletal exam: PRESENT: other - Right elbow massively swollen red, with active purulent drainage from the skin Neurological exam: PRESENT: oriented to person, oriented to place, oriented to time, oriented to situation Psychiatric exam: PRESENT: agitated Results Laboratory Results: 05/20/19 13:13 05/20/19 13:13 05/20/19 05/20/19 05/20/19 13:13 13:13 13:13 WBC 13.4 H RBC 4.22 Hgb 11.6 L Hct 35.1 L MCV 83 MCH 27.5 MCHC 33.1 RDW 16.1 H Plt Count 510 H Seg Neutrophils % 78.7 H Lymphocytes % 12.3 L Monocytes % 7.1 Eosinophils % 1.5 Basophils % 0.4 Absolute Neutrophils 10.6 H Absolute Lymphocytes 1.6 Absolute Monocytes 1.0 Absolute Eosinophils 0.2 Absolute Basophils 0.0 Sodium 138.9 Potassium 4.0 Chloride 105 Carbon Dioxide 21 L Anion Gap 13 BUN 10 Creatinine 0.57 Est GFR ( Amer) > 60 Est GFR (Non-Af Amer) > 60 Glucose 105 Lactic Acid 1.8 Calcium 9.5 Total Bilirubin 0.4 AST 47 H ALT 90 H Alkaline Phosphatase 112 C-Reactive Protein 60.5 H Total Protein 7.7 Albumin 4.2 Urine Color Urine Appearance Urine pH Ur Specific [place] Urine Protein Urine Glucose (UA) Urine Ketones Urine Blood Urine Nitrite Ur Leukocyte Esterase Urine WBC (Auto) Urine RBC (Auto) 05/20/19 16:46 WBC RBC Hgb Hct MCV MCH MCHC RDW Plt Count Seg Neutrophils % Lymphocytes % Monocytes % Eosinophils % Basophils % Absolute Neutrophils Absolute Lymphocytes Absolute Monocytes Absolute Eosinophils Absolute Basophils Sodium Potassium Chloride Carbon Dioxide Anion Gap BUN Creatinine Est GFR ( Amer) Est GFR (Non-Af Amer) Glucose Lactic Acid Calcium Total Bilirubin AST ALT Alkaline Phosphatase C-Reactive Protein Total Protein Albumin Urine Color YELLOW Urine Appearance CLEAR Urine pH 6.0 Ur Specific [place] 1.039 Urine Protein 30 H Urine Glucose (UA) NEGATIVE Urine Ketones NEGATIVE Urine Blood NEGATIVE Urine Nitrite NEGATIVE Ur Leukocyte Esterase TRACE H Urine WBC (Auto) 10 Urine RBC (Auto) 5 05/20/19 13:13 CK-MB (CK-2) 1.09 Impressions: Elbow X-Ray 05/20/19 13:05 IMPRESSION: There is a large soft tissue swelling over the olecranon process, which is significantly increased in size compared to prior examination dated 05/12/2019. In the stated setting of infection, this is concerning for abscess. Consider contrast-enhanced CT, MRI, or ultrasound to further evaluate for local fluid collection. Assessment & Plan - Diagnosis (1) Abscess of bursa, right elbow Is this a current diagnosis for this admission?: Yes Plan: Impression: Acute abscess of the right elbow refractory to outpatient management 29-year-old white female with first trimester intrauterine , known hepatitis C, and history of IV drug abuse Plan: 1. Patient will be admitted to the hospital service with surgery consulting 2. We will plan to take the patient to the operating room as soon is available to perform drainage procedure, debridement and packing. Patient drank and ate a Cheetoe earlier this afternoon, but volume. Also of concern is patient's status, first trimester and risk of demise during anesthesia. I discussed the above with Dr. Mamadou Munoz who understands and agrees to proceed with the recommended operation as this is considered an emergency because of the progressive expanding nature of this soft tissue infection which is now spreading distally and circumferentially about the elbow. 3. I explained to the patient that she will require a drainage procedure, excision of skin, possible counterincision(s), and closure by secondary intention. (2) Hepatitis C carrier Is this a current diagnosis for this admission?: Yes (3) Hepatitis C carrier Is this a current diagnosis for this admission?: Yes (4) Is this a current diagnosis for this admission?: Yes - Time Time Spent: 30 to 50 Minutes Smoking Cessation Education: over 10 minutes Medications reviewed and adjusted accordingly: Yes Anticipated discharge: Home - Inpatient Certification Based on my medical assessment, after consideration of the patient's comorbidities, presenting symptoms, or acuity I expect that the services needed warrant INPATIENT care.: Yes I certify that my determination is in accordance with my understanding of Medicare's requirements for reasonable and necessary INPATIENT services [42 CFR 412.3e].: Yes Medical Necessity: Need for Pain Control, Need for IV Antibiotics, Need for Surgery
[2019-05-20 17:33] LABS: URINE BARBITURATES SCREEN NEGATIVE; URINE BENZODIAZEPINES SCREEN NEGATIVE; URINE COCAINE SCREEN NEGATIVE; URINE MARIJUANA (THC) SCREEN UNCONFIRMED POSITIVE; URINE METHADONE SCREEN NEGATIVE; URINE PHENCYCLIDINE SCREEN NEGATIVE
[2019-05-20] MEDS ORDERED: ONDANSETRON HCL INJ/PF 4 MG/2 ML SDV IV PRN ×2 (17:41→19:09)
[2019-05-20] MEDS ORDERED: ONDANSETRON HCL INJ/PF 4 MG/2 ML SDV ONE (17:43)
[2019-05-20] MEDS ORDERED: EPHEDRINE SULFATE INJ 50 MG/1 ML AMPULE ONE (17:43)
[2019-05-20] MEDS ORDERED: DEXAMETHASONE SOD PHOSPHATE INJ 4 MG/1 ML VIAL ONE (17:43)
[2019-05-20] MEDS ORDERED: PROPOFOL INJ 200 MG/20 ML VIAL IV ONE (17:43)
[2019-05-20] MEDS ORDERED: FENTANYL CITRATE INJ/PF 100 MCG/2 ML AMPUL ONE (17:44)
[2019-05-20] MEDS ORDERED: VANCOMYCIN HCL INJ 500 MG VIAL ONE (17:46)
[2019-05-20] MEDS ORDERED: VANCOMYCIN HCL INJ 1000 MG VIAL IV SCH (18:00)
[2019-05-20] MEDS ORDERED: BUPIVACAINE HCL 0.25 % INJ/PF (2.5 MG/1 ML) 30 ML VIAL ONE (18:05)
[2019-05-20] MEDS ORDERED: LIDOCAINE 0.5% INJ-PF (5 MG/ML) 50 ML SDV ONE (18:05)
[2019-05-20 18:08] LABS: INTERNATIONAL RATION (INR) 0.92; PROTHROMBIN TIME 12.3 SEC (11.4-15.4)
[2019-05-20] MEDS ORDERED: PROMETHAZINE HCL INJ 25 MG/1 ML VIAL ONE (18:18)
[2019-05-20] MEDS ORDERED: KETAMINE HCL INJ 500 MG/10 ML VIAL ONE (18:18)
--- NOTE | 2019-05-20 18:18 | PDOC H&P ---
History of Present Illness Admission Date/PCP: 05/20/2019 Patient complains of: Left elbow abscess History of Present Illness: AYDE CONNELL is a 29 year old female history of hepatitis C and history of IV drug abuse smoker, pregmnt in [facility] came to the emergency room with complaints of her right elbow abscess. According to the patient is started 1 week ago came here to the ER last Monday she was discharged on clindamycin and Bactrim the abscess continued to get bigger associated with severe extreme pain decided to came to the emergency room for further evaluation today. The ER letter spoke to Dr. Olivas he wants to take the [facility] but he requested for the medical team to admit the patient as requested the ER provider to get in touch with [facility] Dr. Conti because she is a female under Dr. Conti advises because is less than 7 weeks it is okay for the medical team to admit the patient. I am reluctant to admit the patient under my service but looks like I have no other choice. Spoke to the pharmacy about pain management like morphine and IV vancomycin and Zosyn for antibiotic therapy they did not see any contraindication about giving this medication to the female. Past Medical History GI Medical History: Reports: Hepatitis Infectious Medical History: Reports: Methicillin-Resistant Staph Aureus, Vancomycin-Resistant Enterococci Past Surgical History Past Surgical History: Reports: Adenoidectomy, Section, Tonsillectomy - & adenoids Social History Smoking Status: Current Every Day Smoker Drugs: Marijuana, Other - History of IV drug abuse Hx Prescription Drug Abuse: No Family History Family History: Reviewed & Not Pertinent Parental Family History Reviewed: Yes - Family history of hypertension Children Family History Reviewed: Yes Sibling(s) Family History Reviewed.: Yes Medication/Allergy Home Medications: Dicyclomine HCl [Bentyl 20 mg Tablet] 20 mg PO QID #14 tablet 03/15/16 Dicyclomine HCl [Bentyl 10 mg Capsule] 1 cap PO TID #14 cap 04/29/17 Cephalexin Monohydrate [Keflex 500 mg Capsule] 500 mg PO QID #28 capsule 03/17/18 Ibuprofen [Motrin 600 mg Tablet] 600 mg PO Q8HP PRN #30 tablet 03/17/18 Sulfamethoxazole/Trimethoprim [Sulfamethoxazole-Tmp Ds Tablet] 1 each PO BID #14 tablet 03/17/18 Clindamycin HCl [Cleocin HCl] 450 mg PO Q6 10 Days capsule 05/12/19 Allergies/Adverse Reactions: No Known Allergies Allergy (Verified 05/20/18 11:17) Review of Systems Constitutional: PRESENT: fatigue, fever(s), weakness Eyes: ABSENT: visual disturbances Ears: ABSENT: hearing changes Nose, Mouth, and Throat: ABSENT: sore throat Cardiovascular: PRESENT: palpitations. ABSENT: orthropnea Respiratory: ABSENT: dyspnea, hemoptysis Gastrointestinal: ABSENT: diarrhea, dysphagia, heartburn, hematemesis, hematochezia Genitourinary: ABSENT: dysuria, hematuria Musculoskeletal: PRESENT: joint swelling, other - Right elbow joint swelling associated with erythema and severe pain. Neurological: ABSENT: abnormal gait, abnormal speech, confusion, dizziness, focal weakness, syncope Psychiatric: ABSENT: anxiety, depression, homidical ideation, suicidal ideation Physical Exam Vital Signs: Temp Pulse Resp BP Pulse Ox 97.8 F 108 H 22 H 145/77 H 100 05/20/19 13:07 05/20/19 13:07 05/20/19 13:07 05/20/19 13:07 05/20/19 13:07 Intake & Output 05/19/19 05/20/19 05/21/19 06:59 06:59 06:59 Weight 49.9 kg General appearance: PRESENT: no acute distress Head exam: PRESENT: atraumatic Eye exam: PRESENT: PERRLA Mouth exam: PRESENT: dry mucosa Neck exam: ABSENT: carotid bruit, JVD, lymphadenopathy, thyromegaly Respiratory exam: PRESENT: clear to auscultation nathaniel. ABSENT: rales, rhonchi, wheezes Cardiovascular exam: PRESENT: tachycardia GI/Abdominal exam: PRESENT: normal bowel sounds, soft. ABSENT: distended, guarding, mass, organolmegaly, rebound, tenderness Rectal exam: PRESENT: deferred Extremities exam: PRESENT: other - Right elbow with huge abscess. Neurological exam: PRESENT: alert, awake, oriented to person, oriented to place, oriented to time, oriented to situation, CN II-XII grossly intact. ABSENT: motor sensory deficit Skin exam: PRESENT: dry, intact, warm. ABSENT: cyanosis, rash Results Laboratory Results: 05/20/19 13:13 05/20/19 13:13 05/20/19 05/20/19 05/20/19 13:13 13:13 13:13 WBC 13.4 H RBC 4.22 Hgb 11.6 L Hct 35.1 L MCV 83 MCH 27.5 MCHC 33.1 RDW 16.1 H Plt Count 510 H Seg Neutrophils % 78.7 H Lymphocytes % 12.3 L Monocytes % 7.1 Eosinophils % 1.5 Basophils % 0.4 Absolute Neutrophils 10.6 H Absolute Lymphocytes 1.6 Absolute Monocytes 1.0 Absolute Eosinophils 0.2 Absolute Basophils 0.0 Sodium 138.9 Potassium 4.0 Chloride 105 Carbon Dioxide 21 L Anion Gap 13 BUN 10 Creatinine 0.57 Est GFR ( Amer) > 60 Est GFR (Non-Af Amer) > 60 Glucose 105 Lactic Acid 1.8 Calcium 9.5 Total Bilirubin 0.4 AST 47 H ALT 90 H Alkaline Phosphatase 112 C-Reactive Protein 60.5 H Total Protein 7.7 Albumin 4.2 Urine Color Urine Appearance Urine pH Ur Specific [place] Urine Protein Urine Glucose (UA) Urine Ketones Urine Blood Urine Nitrite Ur Leukocyte Esterase Urine WBC (Auto) Urine RBC (Auto) 05/20/19 16:46 WBC RBC Hgb Hct MCV MCH MCHC RDW Plt Count Seg Neutrophils % Lymphocytes % Monocytes % Eosinophils % Basophils % Absolute Neutrophils Absolute Lymphocytes Absolute Monocytes Absolute Eosinophils Absolute Basophils Sodium Potassium Chloride Carbon Dioxide Anion Gap BUN Creatinine Est GFR ( Amer) Est GFR (Non-Af Amer) Glucose Lactic Acid Calcium Total Bilirubin AST ALT Alkaline Phosphatase C-Reactive Protein Total Protein Albumin Urine Color YELLOW Urine Appearance CLEAR Urine pH 6.0 Ur Specific [place] 1.039 Urine Protein 30 H Urine Glucose (UA) NEGATIVE Urine Ketones NEGATIVE Urine Blood NEGATIVE Urine Nitrite NEGATIVE Ur Leukocyte Esterase TRACE H Urine WBC (Auto) 10 Urine RBC (Auto) 5 05/20/19 13:13 CK-MB (CK-2) 1.09 Impressions: Elbow X-Ray 05/20/19 13:05 IMPRESSION: There is a large soft tissue swelling over the olecranon process, which is significantly increased in size compared to prior examination dated 05/12/2019. In the stated setting of infection, this is concerning for abscess. Consider contrast-enhanced CT, MRI, or ultrasound to further evaluate for local fluid collection. Assessment and Plan - Diagnosis (1) Abscess of bursa, right elbow Is this a current diagnosis for this admission?: Yes Plan: 019-patient is going to be admitted to medical floor with a right elbow abscess blood cultures urine cultures done in the ER started on vancomycin and Zosyn for pain started on IV morphine GI prophylaxis was initiated because the patient is going to the OR no DVT prophylaxis was initiated. Started on IV fluids at 100 cc/h. Lactic acid level is 1.8 and repeat lactic acid level will be done. Consult patient with Dr. Olivas was done. (2) Hepatitis C carrier Is this a current diagnosis for this admission?: No Plan: 05/20/2019-patient has history of hepatitis C most likely secondary to IV drug abuse. (3) Qualifiers: Weeks of gestation: less than 8 weeks Qualified Code(s): Z3A.01 - Less than 8 weeks gestation of Is this a current diagnosis for this admission?: Yes Plan: 05/20/2019-serum beta hCG positive ultrasound was around 7 weeks gestation OBG consult was requested as per the pharmacist , Morgan it is okay to give IV vancomycin and Zosyn and IV morphine for pain. (4) Tobacco abuse Is this a current diagnosis for this admission?: No Plan: 05/20/2019-patient is current day daily smoker smoking counseling was provided for more than 10 minutes. - Time Time Spent with patient: 25-34 minutes Smoking Cessation Education: over 10 minutes Medications reviewed and adjusted accordingly: Yes Anticipated discharge: Home
[2019-05-20] MEDS ORDERED: PIPERACILLIN/TAZOBACTAM 3.375 GM VIAL IV SCH (18:30)
--- NOTE | 2019-05-20 18:55 | Operative Report ---
Operative Report DATE OF SURGERY: 05/20/19 PREOPERATIVE DIAGNOSIS: 1.Right elbow abscess with extensive soft tissue infect ion. 2. History of IV drug abuse. 3. First trimester . 4. History of hepatitis C POSTOPERATIVE DIAGNOSIS: Same OPERATION: Excisional debridement of right elbow, counterincisions x2, [place] loop drains x2, wound irrigation and packing SURGEON: GETACHEW STEINER ANESTHESIA: GA TISSUE REMOVED OR ALTERED: Skin, pus, subcutaneous tissue COMPLICATIONS: None ESTIMATED BLOOD LOSS: 40 cc INTRAOPERATIVE FINDINGS: See below PROCEDURE: Patient taken from the preop holding her to the main operating room where general anesthesia was induced. The patient's right arm was prepped and draped in sterile fashion Surgical plan and surgical timeout were conducted. The findings were consistent with a very large right elbow abscess. A hole was made in the right elbow and approximately 75 cc of pus was evacuated from the subcutaneous tissue. Pus was sent for Gram stain culture and sensitivity. An ellipse of skin was excised approximately 4 x 5 cm with a #10 blade. Suction, and finger debridement was now undertaken to break up all the loculations involving the subcutaneous tissue on the distal forearm both medially and laterally. The extensiveness of tracking was approximately nursing home around the elbow, and down the forearm for approximately 12 cm. 2 counterincisions were made longitudinally oriented over the medial and lateral aspects of the upper third of the right forearm. 2 large [place] drains were tied in a loop fashion from the initial debridement incision through the counterincisions. 2 L of saline, and peroxide were used to irrigate the wounds. Hemostasis was somewhat challenging due to the extensiveness of the raw surface area. The infection did not appear to track beneath the fascia. I felt that the operation was appropriately aggressive. Wound was packed with iodoform packing and 4 x 4's, then dry 4 x 4's Jake wrap and Kerlix applied to the upper extremity. Patient tolerated the procedure well, extubated, and taken recovery room in stable condition.
[2019-05-20] MEDS ORDERED: FENTANYL CITRATE INJ/PF 100 MCG/2 ML AMPUL IV PRN ×3 (19:09)
[2019-05-20] MEDS ORDERED: DIPHENHYDRAMINE HCL 50 MG/ML VIAL IV PRN (19:09)
[2019-05-20] MEDS: MORPHINE SULFATE 10 MG/ML INJ IV PRN (22:19)
[2019-05-20] MEDS: VANCOMYCIN HCL 500 MG in DEXTROSE 5%-WATER 100 ML IV SCH (22:22)
[2019-05-20] MEDS: NORMAL SALINE 1000 ML 1,000 ML IV PRN (22:34)
[2019-05-21] MEDS: PIPERACILLIN SODIUM/TAZOBACTAM 3.375 GM in NORMAL SALINE 100 ML IV SCH ×4 (00:16→19:46)
[2019-05-21] MEDS: MORPHINE SULFATE 10 MG/ML INJ IV PRN ×4 (04:16→21:50)
[2019-05-21 06:27] LABS: ABSOLUTE BASOPHILS # (AUTO) 0.1 10^3/uL (0.0-0.2); ABSOLUTE LYMPHOCYTES (AUTO) 0.8 10^3/uL (0.5-4.7); ABSOLUTE MONOCYTES (AUTO) 0.6 10^3/uL (0.1-1.4); BASOPHILS % (AUTO) 0.5 % (0-2); EOSINOPHILS % (AUTO) 0.1 % (0-6); HEMATOCRIT 32.8 % (36.0-47.0); HEMOGLOBIN 10.7 g/dL (12.0-15.5); LYMPHOCYTES % (AUTO) 7.1 % (13-45); MEAN CORPUSCULAR HGB CONC 32.7 g/dL (32.0-36.0); MEAN CORPUSCULAR VOLUME 83 fl (80-97); MONOCYTES % (AUTO) 5.4 % (3-13); PLATELET COUNT 553 10^3/uL (150-450); RED BLOOD COUNT 3.97 10^6/uL (3.72-5.28); RED CELL DISTRIBUTION WIDTH 15.7 % (11.5-14.0); SEGMENTED NEUTROPHILS % (AUTO) 86.9 % (42-78); TOTAL CELLS COUNTED % (AUTO) 100 %; WHITE BLOOD COUNT 11.5 10^3/uL (4.0-10.5)
[2019-05-21 06:43] LABS: ALANINE AMINOTRANSFERASE 73 U/L (9-52); ALBUMIN 3.8 g/dL (3.5-5.0); ALKALINE PHOSPHATASE 97 U/L (38-126); ANION GAP 11 (5-19); ASPARTATE AMINO TRANSFERASE 33 U/L (14-36); BILIRUBIN,DIRECT 0.1 mg/dL (0.0-0.4); BILIRUBIN,TOTAL 0.1 mg/dL (0.2-1.3); BLOOD UREA NITROGEN 7 mg/dL (7-20); CALCIUM 9.3 mg/dL (8.4-10.2); CARBON DIOXIDE 23 mmol/L (22-30); CHLORIDE 105 mmol/L (98-107); CREATINE KINASE 88 U/L (30-135); GLUCOSE 95 mg/dL (75-110); POTASSIUM 4.7 mmol/L (3.6-5.0); TOTAL PROTEIN 7.1 g/dL (6.3-8.2)
[2019-05-21] MEDS: KETOROLAC TROMETHAMINE INJ/PF 30 MG/1 ML SDV IV PRN ×3 (06:57→19:46)
[2019-05-21] MEDS: VANCOMYCIN HCL 500 MG in DEXTROSE 5%-WATER 100 ML IV SCH ×3 (06:57→21:51)
[2019-05-21] MEDS: DOCUSATE SODIUM 100 MG CAPSULE PO SCH ×2 (09:23→18:24)
[2019-05-21] MEDS ORDERED: MORPHINE SULFATE 10 MG/ML INJ IV ONE (09:30)
--- NOTE | 2019-05-21 10:02 | PDOC PROGRESS REPORT ---
Subjective Progress Note for:: 05/21/19 Subjective:: Pain at right elbow. Reason For Visit: ABSCESS Physical Exam Vital Signs: Temp Pulse Resp BP Pulse Ox 98.3 F 86 16 138/84 H 100 05/20/19 23:39 05/21/19 00:16 05/21/19 00:16 05/21/19 00:16 05/21/19 00:16 Intake & Output 05/20/19 05/21/19 05/22/19 06:59 06:59 06:59 Intake Total 3710 200 Output Total 1130 Balance 2580 200 Weight 49.4 kg General appearance: PRESENT: cooperative Respiratory exam: PRESENT: clear to auscultation nathaniel Cardiovascular exam: PRESENT: RRR Extremities exam: PRESENT: other - Elbow wound looks clean with minimal drainage. Has surrounding erythema and induration. No fluctuance. No evidence of undrained abscess. Psychiatric exam: PRESENT: anxious Results Laboratory Results: 05/21/19 06:07 05/21/19 06:07 05/20/19 05/20/19 05/20/19 13:13 13:13 13:13 WBC 13.4 H RBC 4.22 Hgb 11.6 L Hct 35.1 L MCV 83 MCH 27.5 MCHC 33.1 RDW 16.1 H Plt Count 510 H Seg Neutrophils % 78.7 H Lymphocytes % 12.3 L Monocytes % 7.1 Eosinophils % 1.5 Basophils % 0.4 Absolute Neutrophils 10.6 H Absolute Lymphocytes 1.6 Absolute Monocytes 1.0 Absolute Eosinophils 0.2 Absolute Basophils 0.0 Sodium 138.9 Potassium 4.0 Chloride 105 Carbon Dioxide 21 L Anion Gap 13 BUN 10 Creatinine 0.57 Est GFR ( Amer) > 60 Est GFR (Non-Af Amer) > 60 Glucose 105 Lactic Acid 1.8 Calcium 9.5 Magnesium Total Bilirubin 0.4 AST 47 H ALT 90 H Alkaline Phosphatase 112 C-Reactive Protein 60.5 H Total Protein 7.7 Albumin 4.2 TSH Urine Color Urine Appearance Urine pH Ur Specific [place] Urine Protein Urine Glucose (UA) Urine Ketones Urine Blood Urine Nitrite Ur Leukocyte Esterase Urine WBC (Auto) Urine RBC (Auto) 05/20/19 05/21/19 05/21/19 16:46 06:07 06:07 WBC 11.5 H RBC 3.97 Hgb 10.7 L Hct 32.8 L MCV 83 MCH 27.0 MCHC 32.7 RDW 15.7 H Plt Count 553 H Seg Neutrophils % 86.9 H Lymphocytes % 7.1 L Monocytes % 5.4 Eosinophils % 0.1 Basophils % 0.5 Absolute Neutrophils 10.0 H Absolute Lymphocytes 0.8 Absolute Monocytes 0.6 Absolute Eosinophils 0.0 Absolute Basophils 0.1 Sodium 139.0 Potassium 4.7 Chloride 105 Carbon Dioxide 23 Anion Gap 11 BUN 7 Creatinine 0.50 L Est GFR ( Amer) > 60 Est GFR (Non-Af Amer) > 60 Glucose 95 Lactic Acid Calcium 9.3 Magnesium 2.0 Total Bilirubin 0.1 L AST 33 ALT 73 H Alkaline Phosphatase 97 C-Reactive Protein Total Protein 7.1 Albumin 3.8 TSH Urine Color YELLOW Urine Appearance CLEAR Urine pH 6.0 Ur Specific [place] 1.039 Urine Protein 30 H Urine Glucose (UA) NEGATIVE Urine Ketones NEGATIVE Urine Blood NEGATIVE Urine Nitrite NEGATIVE Ur Leukocyte Esterase TRACE H Urine WBC (Auto) 10 Urine RBC (Auto) 5 05/21/19 06:07 WBC RBC Hgb Hct MCV MCH MCHC RDW Plt Count Seg Neutrophils % Lymphocytes % Monocytes % Eosinophils % Basophils % Absolute Neutrophils Absolute Lymphocytes Absolute Monocytes Absolute Eosinophils Absolute Basophils Sodium Potassium Chloride Carbon Dioxide Anion Gap BUN Creatinine Est GFR ( Amer) Est GFR (Non-Af Amer) Glucose Lactic Acid Calcium Magnesium Total Bilirubin AST ALT Alkaline Phosphatase C-Reactive Protein Total Protein Albumin TSH 1.15 Urine Color Urine Appearance Urine pH Ur Specific [place] Urine Protein Urine Glucose (UA) Urine Ketones Urine Blood Urine Nitrite Ur Leukocyte Esterase Urine WBC (Auto) Urine RBC (Auto) 05/20/19 05/20/19 05/20/19 13:13 13:13 13:13 Creatine Kinase 88 CK-MB (CK-2) 1.09 Troponin I < 0.012 05/20/19 05/20/19 05/21/19 22:55 22:55 06:07 Creatine Kinase 89 88 CK-MB (CK-2) Troponin I < 0.012 05/21/19 06:07 Creatine Kinase CK-MB (CK-2) Troponin I < 0.012 Impressions: Elbow X-Ray 05/20/19 13:05 IMPRESSION: There is a large soft tissue swelling over the olecranon process, which is significantly increased in size compared to prior examination dated 05/12/2019. In the stated setting of infection, this is concerning for abscess. Consider contrast-enhanced CT, MRI, or ultrasound to further evaluate for local fluid collection. Assessment & Plan - Diagnosis (1) Abscess of bursa, right elbow Is this a current diagnosis for this admission?: Yes Plan: Status post debridement. No further surgical debridement is required but will need continued IV antibiotics until culture results return. Dressing changes started.
--- NOTE | 2019-05-21 11:54 | PDOC PROGRESS REPORT ---
Subjective Progress Note for:: 05/21/19 Subjective:: 29-year-old female with history of IV drug abuse with first trimester admitted for right elbow abscess status post I&D was done yesterday. Patient is receiving IV vancomycin and Zosyn. No acute events in the last 24 hours. Cultures are pending. Reason For Visit: ABSCESS Physical Exam Vital Signs: Temp Pulse Resp BP Pulse Ox 98.5 F 79 13 147/60 H 100 05/21/19 09:00 05/21/19 09:00 05/21/19 09:00 05/21/19 09:00 05/21/19 09:00 Intake & Output 05/20/19 05/21/19 05/22/19 06:59 06:59 06:59 Intake Total 3710 200 Output Total 1130 Balance 2580 200 Weight 49.4 kg General appearance: PRESENT: no acute distress Head exam: PRESENT: atraumatic Eye exam: PRESENT: PERRLA Mouth exam: PRESENT: moist, tongue midline Teeth exam: PRESENT: poor dentation Neck exam: ABSENT: carotid bruit, JVD, lymphadenopathy, thyromegaly Respiratory exam: PRESENT: clear to auscultation nathaniel. ABSENT: rales, rhonchi, wheezes Cardiovascular exam: PRESENT: RRR. ABSENT: diastolic murmur, rubs, systolic murmur GI/Abdominal exam: PRESENT: normal bowel sounds, soft. ABSENT: distended, guarding, mass, organolmegaly, rebound, tenderness Rectal exam: PRESENT: deferred Extremities exam: PRESENT: other - Right elbow is wrapped in bandage. Neurological exam: PRESENT: alert, awake, oriented to person, oriented to place, oriented to time, oriented to situation, CN II-XII grossly intact. ABSENT: motor sensory deficit Psychiatric exam: PRESENT: appropriate affect, normal mood. ABSENT: homicidal ideation, suicidal ideation Results Laboratory Results: 05/21/19 06:07 05/21/19 06:07 05/20/19 05/20/19 05/20/19 13:13 13:13 13:13 WBC 13.4 H RBC 4.22 Hgb 11.6 L Hct 35.1 L MCV 83 MCH 27.5 MCHC 33.1 RDW 16.1 H Plt Count 510 H Seg Neutrophils % 78.7 H Lymphocytes % 12.3 L Monocytes % 7.1 Eosinophils % 1.5 Basophils % 0.4 Absolute Neutrophils 10.6 H Absolute Lymphocytes 1.6 Absolute Monocytes 1.0 Absolute Eosinophils 0.2 Absolute Basophils 0.0 Sodium 138.9 Potassium 4.0 Chloride 105 Carbon Dioxide 21 L Anion Gap 13 BUN 10 Creatinine 0.57 Est GFR ( Amer) > 60 Est GFR (Non-Af Amer) > 60 Glucose 105 Lactic Acid 1.8 Calcium 9.5 Magnesium Total Bilirubin 0.4 AST 47 H ALT 90 H Alkaline Phosphatase 112 C-Reactive Protein 60.5 H Total Protein 7.7 Albumin 4.2 TSH Urine Color Urine Appearance Urine pH Ur Specific [place] Urine Protein Urine Glucose (UA) Urine Ketones Urine Blood Urine Nitrite Ur Leukocyte Esterase Urine WBC (Auto) Urine RBC (Auto) 05/20/19 05/21/19 05/21/19 16:46 06:07 06:07 WBC 11.5 H RBC 3.97 Hgb 10.7 L Hct 32.8 L MCV 83 MCH 27.0 MCHC 32.7 RDW 15.7 H Plt Count 553 H Seg Neutrophils % 86.9 H Lymphocytes % 7.1 L Monocytes % 5.4 Eosinophils % 0.1 Basophils % 0.5 Absolute Neutrophils 10.0 H Absolute Lymphocytes 0.8 Absolute Monocytes 0.6 Absolute Eosinophils 0.0 Absolute Basophils 0.1 Sodium 139.0 Potassium 4.7 Chloride 105 Carbon Dioxide 23 Anion Gap 11 BUN 7 Creatinine 0.50 L Est GFR ( Amer) > 60 Est GFR (Non-Af Amer) > 60 Glucose 95 Lactic Acid Calcium 9.3 Magnesium 2.0 Total Bilirubin 0.1 L AST 33 ALT 73 H Alkaline Phosphatase 97 C-Reactive Protein Total Protein 7.1 Albumin 3.8 TSH Urine Color YELLOW Urine Appearance CLEAR Urine pH 6.0 Ur Specific [place] 1.039 Urine Protein 30 H Urine Glucose (UA) NEGATIVE Urine Ketones NEGATIVE Urine Blood NEGATIVE Urine Nitrite NEGATIVE Ur Leukocyte Esterase TRACE H Urine WBC (Auto) 10 Urine RBC (Auto) 5 05/21/19 06:07 WBC RBC Hgb Hct MCV MCH MCHC RDW Plt Count Seg Neutrophils % Lymphocytes % Monocytes % Eosinophils % Basophils % Absolute Neutrophils Absolute Lymphocytes Absolute Monocytes Absolute Eosinophils Absolute Basophils Sodium Potassium Chloride Carbon Dioxide Anion Gap BUN Creatinine Est GFR ( Amer) Est GFR (Non-Af Amer) Glucose Lactic Acid Calcium Magnesium Total Bilirubin AST ALT Alkaline Phosphatase C-Reactive Protein Total Protein Albumin TSH 1.15 Urine Color Urine Appearance Urine pH Ur Specific [place] Urine Protein Urine Glucose (UA) Urine Ketones Urine Blood Urine Nitrite Ur Leukocyte Esterase Urine WBC (Auto) Urine RBC (Auto) 05/20/19 05/20/19 05/20/19 13:13 13:13 13:13 Creatine Kinase 88 CK-MB (CK-2) 1.09 Troponin I < 0.012 05/20/19 05/20/19 05/21/19 22:55 22:55 06:07 Creatine Kinase 89 88 CK-MB (CK-2) Troponin I < 0.012 05/21/19 06:07 Creatine Kinase CK-MB (CK-2) Troponin I < 0.012 Impressions: Elbow X-Ray 05/20/19 13:05 IMPRESSION: There is a large soft tissue swelling over the olecranon process, which is significantly increased in size compared to prior examination dated 05/12/2019. In the stated setting of infection, this is concerning for abscess. Consider contrast-enhanced CT, MRI, or ultrasound to further evaluate for local fluid collection. Assessment and Plan - Diagnosis (1) Abscess of bursa, right elbow Is this a current diagnosis for this admission?: Yes Plan: 05/20/2019-patient is going to be admitted to medical floor with a right elbow abscess blood cultures urine cultures done in the ER started on vancomycin and Zosyn for pain started on IV morphine GI prophylaxis was initiated because the patient is going to the OR no DVT prophylaxis was initiated. Started on IV fluids at 100 cc/h. Lactic acid level is 1.8 and repeat lactic acid level will be done. Consult patient with Dr. Olivas was done. 05/21/[id number]-ltbs-old female admitted with abscess around the right elbow status post I&D was done yesterday. Wound cultures and blood cultures are pending. On IV Zosyn and vancomycin. Afebrile T-max is 98.3. Plan is to continue the present management. (2) Hepatitis C carrier Is this a current diagnosis for this admission?: No (3) Qualifiers: Weeks of gestation: less than 8 weeks Qualified Code(s): Z3A.01 - Less than 8 weeks gestation of Is this a current diagnosis for this admission?: Yes Plan: 05/20/2019-serum beta hCG positive ultrasound was around 7 weeks gestation OBG consult was requested as per the pharmacist , Morgan it is okay to give IV vancomycin and Zosyn and IV morphine for pain. 11/21/2018-patient admitted with a history of ultrasound indicates the [facility] may be less than 7 weeks OB consult was requested. (4) Tobacco abuse Is this a current diagnosis for this admission?: No - Time Time Spent with patient: 25-34 minutes Smoking Cessation Education: over 10 minutes Anticipated discharge: Home
--- NOTE | 2019-05-21 16:22 | PDOC CONSULTATION ---
Consultation Consult Date: 05/21/19 Provider Consulted: RONY RIGGINS Consult reason:: 7 wk EGA History of Present Illness Admission Date/PCP: 05/20/19 17:41 History of Present Illness: AYDE CONNELL is a 29 year old female admitted last evening for elbow abscess and was taken to OR for I&D. She is currently on zosyn and vancomycin IV for antimicrobial treatment. In regards to she denies, nausea/vomiting/vaginal bleeding/pelvic cramping. Her only complaint at this ti ak is pain control. Past Medical History Gynecological Infection: No 2 Baby 1 Female Year: 2,015 Delivery: : Low Cervical, Transverse GI Medical History: Reports: Hepatitis Infectious Medical History: Reports: Methicillin-Resistant Staph Aureus, Vancomycin-Resistant Enterococci Social History Information Source: Patient, Parent Lives with: Spouse/Significant other Smoking Status: Current Every Day Smoker Frequency of Alcohol Use: Occasional Hx Recreational Drug Use: Yes - indicates last cocaine use was 2 years ago. Last IV drug use 4 years ago Drugs: Cocaine, Marijuana, Other Hx Prescription Drug Abuse: No - Advance Directive Resuscitation Status: Full Code Family History Family History: Reviewed & Not Pertinent Parental Family History Reviewed: Yes Children Family History Reviewed: Yes Sibling(s) Family History Reviewed.: Yes Medication/Allergy Home Medications: Dicyclomine HCl [Bentyl 20 mg Tablet] 20 mg PO QID #14 tablet 03/15/16 Dicyclomine HCl [Bentyl 10 mg Capsule] 1 cap PO TID #14 cap 04/29/17 Cephalexin Monohydrate [Keflex 500 mg Capsule] 500 mg PO QID #28 capsule 03/17/18 Ibuprofen [Motrin 600 mg Tablet] 600 mg PO Q8HP PRN #30 tablet 03/17/18 Sulfamethoxazole/Trimethoprim [Sulfamethoxazole-Tmp Ds Tablet] 1 each PO BID #14 tablet 03/17/18 Clindamycin HCl [Cleocin HCl] 450 mg PO Q6 10 Days capsule 05/12/19 Allergies/Adverse Reactions: No Known Allergies Allergy (Verified 05/20/18 11:17) Physical Exam - Physical Exam Vital Signs: Temp Pulse Resp BP Pulse Ox 98.5 F 79 13 147/60 H 100 05/21/19 09:00 05/21/19 09:00 05/21/19 09:00 05/21/19 09:00 05/21/19 09:00 Intake & Output 05/20/19 05/21/19 05/22/19 06:59 06:59 06:59 Intake Total 3710 200 Output Total 1130 Balance 2580 200 Weight 49.4 kg General appearance: PRESENT: no acute distress, cooperative, mild distress - appears uncomfortable with elbow pain Head exam: PRESENT: atraumatic Neurological exam: PRESENT: alert, awake, oriented to person, oriented to place, oriented to time, oriented to situation Skin exam: PRESENT: abrasion, mottled, normal color, skin tears Result Laboratory Results: 05/21/19 06:07 05/21/19 06:07 05/20/19 05/21/19 05/21/19 16:46 06:07 06:07 WBC 11.5 H RBC 3.97 Hgb 10.7 L Hct 32.8 L MCV 83 MCH 27.0 MCHC 32.7 RDW 15.7 H Plt Count 553 H Seg Neutrophils % 86.9 H Lymphocytes % 7.1 L Monocytes % 5.4 Eosinophils % 0.1 Basophils % 0.5 Absolute Neutrophils 10.0 H Absolute Lymphocytes 0.8 Absolute Monocytes 0.6 Absolute Eosinophils 0.0 Absolute Basophils 0.1 Sodium 139.0 Potassium 4.7 Chloride 105 Carbon Dioxide 23 Anion Gap 11 BUN 7 Creatinine 0.50 L Est GFR ( Amer) > 60 Est GFR (Non-Af Amer) > 60 Glucose 95 Calcium 9.3 Magnesium 2.0 Total Bilirubin 0.1 L AST 33 ALT 73 H Alkaline Phosphatase 97 Total Protein 7.1 Albumin 3.8 TSH Urine Color YELLOW Urine Appearance CLEAR Urine pH 6.0 Ur Specific Hematite 1.039 Urine Protein 30 H Urine Glucose (UA) NEGATIVE Urine Ketones NEGATIVE Urine Blood NEGATIVE Urine Nitrite NEGATIVE Ur Leukocyte Esterase TRACE H Urine WBC (Auto) 10 Urine RBC (Auto) 5 05/21/19 06:07 WBC RBC Hgb Hct MCV MCH MCHC RDW Plt Count Seg Neutrophils % Lymphocytes % Monocytes % Eosinophils % Basophils % Absolute Neutrophils Absolute Lymphocytes Absolute Monocytes Absolute Eosinophils Absolute Basophils Sodium Potassium Chloride Carbon Dioxide Anion Gap BUN Creatinine Est GFR ( Amer) Est GFR (Non-Af Amer) Glucose Calcium Magnesium Total Bilirubin AST ALT Alkaline Phosphatase Total Protein Albumin TSH 1.15 Urine Color Urine Appearance Urine pH Ur Specific Hematite Urine Protein Urine Glucose (UA) Urine Ketones Urine Blood Urine Nitrite Ur Leukocyte Esterase Urine WBC (Auto) Urine RBC (Auto) 05/20/19 05/20/19 05/20/19 13:13 13:13 13:13 Creatine Kinase 88 CK-MB (CK-2) 1.09 Troponin I < 0.012 05/20/19 05/20/19 05/21/19 22:55 22:55 06:07 Creatine Kinase 89 88 CK-MB (CK-2) Troponin I < 0.012 05/21/19 06:07 Creatine Kinase CK-MB (CK-2) Troponin I < 0.012 Impressions: Elbow X-Ray 05/20/19 13:05 IMPRESSION: There is a large soft tissue swelling over the olecranon process, which is significantly increased in size compared to prior examination dated 05/12/2019. In the stated setting of infection, this is concerning for abscess. Consider contrast-enhanced CT, MRI, or ultrasound to further evaluate for local fluid collection. Assessment & Plan - Diagnosis (1) Abscess of bursa, right elbow Is this a current diagnosis for this admission?: Yes (2) Hepatitis C carrier Is this a current diagnosis for this admission?: No (3) History of hepatitis C Is this a current diagnosis for this admission?: Yes (4) History of intravenous drug abuse Is this a current diagnosis for this admission?: Yes (5) Leukocytosis Qualifiers: Leukocytosis type: unspecified Qualified Code(s): D72.829 - Elevated white blood cell count, unspecified Is this a current diagnosis for this admission?: Yes (6) Qualifiers: Weeks of gestation: less than 8 weeks Qualified Code(s): Z3A.01 - Less than 8 weeks gestation of Is this a current diagnosis for this admission?: Yes (7) Tobacco abuse Is this a current diagnosis for this admission?: No - Time Time Spent: 30 to 50 Minutes Critical Time spent with patient: Less than 15 minutes Anticipated discharge: Home Within: Other - Plan Summary Plan Summary: patient's pain control will be difficult based on her history. would like to avoid Fentanyl but use of other opiods such as dilaudid and morphine is cautiously acceptable. Would like pain meds to be for as short a term as necessary for patient's current infection needs. 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 She voiced understanding of this and agrees to use the pain medications for as short a period as necessary to recover from her current abscess status. Current antibiotics are good to continue. Would avoid sulfas. Can follow up in future as out patient to establish care. (she may need to contact the health department to initiate intake there.) Sono today to confirm presence of heart tones.
[2019-05-21] MEDS: DIPHENHYDRAMINE HCL 25 MG/10 ML UDC PO PRN (16:49)
--- NOTE | 2019-05-21 18:05 | RADIOLOGY REPORT (SQ) ---
EXAM DESCRIPTION: U/S OB TRANSVAG W/DOPPLER COMPLETED DATE/TIME: 05/21/2019 5:52 pm REASON FOR STUDY: confirm heart tones post surgery COMPARISON: None. TECHNIQUE: Transvaginal and transabdominal static and realtime grayscale images acquired of the pelv is. Additional selected spectral and color Doppler images recorded. All images stored on PACs. [facility] [place] CLINICAL DATES: Not Available. LIMITATIONS: None. FINDINGS: FETUS: Single Living intrauterine . ULTRASOUND EGA: 6 weeks 2 days ULTRASOUND TERRY: 01/12/2020 EFW: Not applicable less than 20 weeks. CRL: 0.3 cm FHR: 104 beats per minute. SURVEY: Too early to assess. AMNIOTIC FLUID: Adequate amount. PLACENTA: Not yet developed due to early gestation. SUBCHORIONIC BLEED: No SIZE OF BLEED: Not applicable. UTERUS: No masses. No anomalies. CERVICAL LENGTH: 2.3 cm Closed. RIGHT ADNEXA: Normal ovary with normal vascular flow. No adnexal free fluid. No adnexal masses. LEFT ADNEXA: Normal ovary with normal vascular flow. No adnexal free fluid. No adnexal masses. FREE FLUID: None. OTHER: No other significant finding. IMPRESSION: LIVING INTRAUTERINE . EGA 6 weeks 2 days Trimester of : First - 0 to 13 weeks. TECHNICAL DOCUMENTATION: JOB ID: [id number] [employer]- All Rights Reserved rev-03/30 Reading location - IP/workstation name: [email or web address]
[2019-05-21] MEDS: NORMAL SALINE 1000 ML 1,000 ML IV PRN (19:46)
[2019-05-21] MEDS ORDERED: MORPHINE SULFATE 10 MG/ML INJ IV PRN ×2 (20:27→20:33)
[2019-05-21 22:19] LABS: VANCOMYCIN,TROUGH 9.3 ug/mL (5.0-20.0)
[2019-05-22] MEDS: PIPERACILLIN SODIUM/TAZOBACTAM 3.375 GM in NORMAL SALINE 100 ML IV SCH ×5 (00:56→23:17)
[2019-05-22] MEDS: MORPHINE SULFATE 10 MG/ML INJ IV PRN ×8 (02:01→23:35)
[2019-05-22] MEDS: DIPHENHYDRAMINE HCL 25 MG/10 ML UDC PO PRN ×2 (02:08→17:08)
[2019-05-22] MEDS: KETOROLAC TROMETHAMINE INJ/PF 30 MG/1 ML SDV IV PRN (06:20)
[2019-05-22] MEDS: VANCOMYCIN HCL 500 MG in DEXTROSE 5%-WATER 100 ML IV SCH (06:53)
--- NOTE | 2019-05-22 08:12 | PDOC PROGRESS REPORT ---
Subjective Progress Note for:: 05/22/19 Reason For Visit: ABSCESS c/o pain rt elbow Physical Exam Vital Signs: Temp Pulse Resp BP Pulse Ox 98.6 F 75 14 144/83 H 100 05/22/19 04:00 05/22/19 04:00 05/22/19 04:00 05/22/19 04:00 05/22/19 04:00 Intake & Output 05/21/19 05/22/19 05/23/19 06:59 06:59 06:59 Intake Total 3710 3205 Output Total 1130 Balance 2580 3205 Weight 49.4 kg 49.4 kg General appearance: PRESENT: mild distress Head exam: PRESENT: normocephalic Eye exam: PRESENT: EOMI Mouth exam: PRESENT: dry mucosa Respiratory exam: PRESENT: clear to auscultation nathaniel Cardiovascular exam: PRESENT: RRR Pulses: PRESENT: normal radial pulses Vascular exam: PRESENT: normal capillary refill GI/Abdominal exam: PRESENT: soft Rectal exam: PRESENT: deferred Extremities exam: PRESENT: full ROM, other - rt elbow wound packed, pack remove d, robert drain in place min cellulitis Neurological exam: PRESENT: alert, oriented to person, oriented to place Skin exam: PRESENT: dry Results Laboratory Results: 05/21/19 06:07 05/21/19 21:45 05/21/19 21:45 Creatinine 0.61 Est GFR ( Amer) > 60 Est GFR (Non-Af Amer) > 60 05/20/19 18:23 Elbow - Abscess Gram Stain - Final 05/20/19 05/20/19 05/20/19 13:13 13:13 13:13 Creatine Kinase 88 CK-MB (CK-2) 1.09 Troponin I < 0.012 05/20/19 05/20/19 05/21/19 22:55 22:55 06:07 Creatine Kinase 89 88 CK-MB (CK-2) Troponin I < 0.012 05/21/19 06:07 Creatine Kinase CK-MB (CK-2) Troponin I < 0.012 Impressions: Elbow X-Ray 05/20/19 13:05 IMPRESSION: There is a large soft tissue swelling over the olecranon process, which is significantly increased in size compared to prior examination dated 05/12/2019. In the stated setting of infection, this is concerning for abscess. Consider contrast-enhanced CT, MRI, or ultrasound to further evaluate for local fluid collection. Transvaginal US 05/21/19 00:00 IMPRESSION: LIVING INTRAUTERINE . EGA 6 weeks 2 days Trimester of : First - 0 to 13 weeks. Assessment & Plan - Plan Summary Plan Summary: wound clean, drain in place pt could be dc home on po abx needs a f/u in surgery clinic in a week after discharge for drain removal suggest home health will need dressing changes to open portion of wound with ns and 'wet to dry'.
[2019-05-22] MEDS: DOCUSATE SODIUM 100 MG CAPSULE PO SCH ×2 (09:37→17:20)
[2019-05-22] MEDS: VANCOMYCIN HCL 750 MG in DEXTROSE 5%-WATER 250 ML IV SCH ×2 (09:52→18:31)
[2019-05-22] MEDS ORDERED: VANCOMYCIN HCL 500 MG in DEXTROSE 5%-WATER 100 ML IV SCH (10:00)
--- NOTE | 2019-05-22 10:50 | PDOC PROGRESS REPORT ---
Subjective Progress Note for:: 05/22/19 Subjective:: 29-year-old female with history of IV drug abuse with first trimester admitted for right elbow abscess status post I&D was done yesterday. Patient is receiving IV vancomycin and Zosyn. No acute events in the last 24 hours. Cultures are pending. 05/22/[id number]-ryjo-old female admitted with right elbow abscess status post surgery was done. Dr. De Anda saw the patient this morning blood cultures came back negative and wound cultures are came back positive for gram-positive cocci recently on IV vancomycin and Zosyn plan is to continue the antibiotics for at least another day or 2. Reason For Visit: ABSCESS Physical Exam Vital Signs: Temp Pulse Resp BP Pulse Ox 98.6 F 77 16 133/60 H 100 05/22/19 08:35 05/22/19 08:35 05/22/19 08:35 05/22/19 08:35 05/22/19 08:35 Intake & Output 05/21/19 05/22/19 05/23/19 06:59 06:59 06:59 Intake Total 3710 3205 Output Total 1130 Balance 2580 3205 Weight 49.4 kg 49.4 kg Results Laboratory Results: 05/21/19 06:07 05/21/19 21:45 05/21/19 21:45 Creatinine 0.61 Est GFR ( Amer) > 60 Est GFR (Non-Af Amer) > 60 05/20/19 18:23 Elbow - Abscess Gram Stain - Final 05/20/19 05/20/19 05/20/19 13:13 13:13 13:13 Creatine Kinase 88 CK-MB (CK-2) 1.09 Troponin I < 0.012 05/20/19 05/20/19 05/21/19 22:55 22:55 06:07 Creatine Kinase 89 88 CK-MB (CK-2) Troponin I < 0.012 05/21/19 06:07 Creatine Kinase CK-MB (CK-2) Troponin I < 0.012 Impressions: Elbow X-Ray 05/20/19 13:05 IMPRESSION: There is a large soft tissue swelling over the olecranon process, which is significantly increased in size compared to prior examination dated 05/12/2019. In the stated setting of infection, this is concerning for abscess. Consider contrast-enhanced CT, MRI, or ultrasound to further evaluate for local fluid collection. Transvaginal US 05/21/19 00:00 IMPRESSION: LIVING INTRAUTERINE . EGA 6 weeks 2 days Trimester of : First - 0 to 13 weeks. Assessment and Plan - Diagnosis (1) Abscess of bursa, right elbow Is this a current diagnosis for this admission?: Yes (2) Hepatitis C carrier Is this a current diagnosis for this admission?: No (3) Qualifiers: Weeks of gestation: less than 8 weeks Qualified Code(s): Z3A.01 - Less than 8 weeks gestation of Is this a current diagnosis for this admission?: Yes Plan: 05/20/2019-serum beta hCG positive ultrasound was around 7 weeks gestation OBG consult was requested as per the pharmacist , Morgan it is okay to give IV vancomycin and Zosyn and IV morphine for pain. 05/21/2019-patient admitted with a history of ultrasound indicates the gas station may be less than 7 weeks OB consult was requested. 05/22/2019-patient was seen by OBG Dr. Francois will follow her recommendations. (4) Tobacco abuse Is this a current diagnosis for this admission?: No - Time Time Spent with patient: 25-34 minutes Smoking Cessation Education: over 10 minutes Medications reviewed and adjusted accordingly: Yes Anticipated discharge: Home with Homehealth
[2019-05-22] MEDS: TEMAZEPAM 15 MG CAPSULE PO SCH (21:41)
[2019-05-23] MEDS: VANCOMYCIN HCL 750 MG in DEXTROSE 5%-WATER 250 ML IV SCH ×2 (01:35→11:00)
[2019-05-23] MEDS: MORPHINE SULFATE 10 MG/ML INJ IV PRN ×6 (02:03→18:34)
[2019-05-23] MEDS: PIPERACILLIN SODIUM/TAZOBACTAM 3.375 GM in NORMAL SALINE 100 ML IV SCH ×2 (05:29→11:05)
[2019-05-23] MEDS ORDERED: KETOROLAC TROMETHAMINE INJ/PF 30 MG/1 ML SDV IV PRN (10:21)
--- NOTE | 2019-05-23 10:44 | PDOC PROGRESS REPORT ---
Subjective Progress Note for:: 05/23/19 Subjective:: 29-year-old female with history of IV drug abuse with first trimester admitted for right elbow abscess status post I&D was done yesterday. Patient is receiving IV vancomycin and Zosyn. No acute events in the last 24 hours. Cultures are pending. 05/22/[id number]-rwlp-old female admitted with right elbow abscess status post surgery was done. Dr. De Anda saw the patient this morning blood cultures came back negative and wound cultures are came back positive for gram-positive cocci recently on IV vancomycin and Zosyn plan is to continue the antibiotics for at least another day or 2. 11/23/[id number]-zdka-old female admitted with right elbow abscess status post surgery culture came back positive for MSSA on IV Zosyn and vancomycin. Patient's main concerns is pain she is receiving 3 mg of IV morphine every 2 hours as needed she thinks is not enough she wants Dilaudid to start on Toradol 15 mg IV every 6 as needed if it is okay with the pharmacy. She keep on losing the IV access she went for PICC line today. Reason For Visit: ABSCESS Physical Exam Vital Signs: Temp Pulse Resp BP Pulse Ox 98.6 F 88 17 133/55 H 100 05/23/19 08:00 05/23/19 08:00 05/23/19 08:00 05/23/19 08:00 05/23/19 08:00 Intake & Output 05/22/19 05/23/19 05/24/19 06:59 06:59 06:59 Intake Total 3305 4408 Balance 3305 4408 Weight 49.4 kg 50.1 kg General appearance: PRESENT: no acute distress Head exam: PRESENT: atraumatic Eye exam: PRESENT: PERRLA Ear exam: PRESENT: bleeding Mouth exam: PRESENT: dry mucosa Teeth exam: PRESENT: poor dentation Neck exam: ABSENT: carotid bruit, JVD, lymphadenopathy, thyromegaly Respiratory exam: PRESENT: clear to auscultation nathaniel. ABSENT: rales, rhonchi, wheezes Cardiovascular exam: PRESENT: RRR. ABSENT: diastolic murmur, rubs, systolic murmur GI/Abdominal exam: PRESENT: normal bowel sounds, soft. ABSENT: distended, guarding, mass, organolmegaly, rebound, tenderness Rectal exam: PRESENT: deferred Extremities exam: PRESENT: full ROM, other - Right elbow covered with a dressing. Patient does not want to me see the wound because severe pain.. ABSENT: calf tenderness, clubbing, pedal edema Neurological exam: PRESENT: alert, awake, oriented to person, oriented to place, oriented to time, oriented to situation, CN II-XII grossly intact. ABSENT: motor sensory deficit Psychiatric exam: PRESENT: appropriate affect, normal mood. ABSENT: homicidal ideation, suicidal ideation Results Laboratory Results: 05/21/19 06:07 05/21/19 21:45 05/20/19 18:23 Elbow - Abscess Gram Stain - Final 05/20/19 18:23 Elbow - Abscess Wound Culture - Final Staphylococcus Aureus No Anaerobic Organisms 05/20/19 05/20/19 05/20/19 13:13 13:13 13:13 Creatine Kinase 88 CK-MB (CK-2) 1.09 Troponin I < 0.012 05/20/19 05/20/19 05/21/19 22:55 22:55 06:07 Creatine Kinase 89 88 CK-MB (CK-2) Troponin I < 0.012 05/21/19 06:07 Creatine Kinase CK-MB (CK-2) Troponin I < 0.012 Impressions: Elbow X-Ray 05/20/19 13:05 IMPRESSION: There is a large soft tissue swelling over the olecranon process, which is significantly increased in size compared to prior examination dated 05/12/2019. In the stated setting of infection, this is concerning for abscess. Consider contrast-enhanced CT, MRI, or ultrasound to further evaluate for local fluid collection. Transvaginal US 05/21/19 00:00 IMPRESSION: LIVING INTRAUTERINE . EGA 6 weeks 2 days Trimester of : First - 0 to 13 weeks. Assessment and Plan - Diagnosis (1) Abscess of bursa, right elbow Is this a current diagnosis for this admission?: Yes Plan: 05/20/2019-patient is going to be admitted to medical floor with a right elbow abscess blood cultures urine cultures done in the ER started on vancomycin and Zosyn for pain started on IV morphine GI prophylaxis was initiated because the patient is going to the OR no DVT prophylaxis was initiated. Started on IV fluids at 100 cc/h. Lactic acid level is 1.8 and repeat lactic acid level will be done. Consult patient with Dr. Olivas was done. 05/21/[id number]-hvzv-old female admitted with abscess around the right elbow status post I&D was done yesterday. Wound cultures and blood cultures are pending. On IV Zosyn and vancomycin. Afebrile T-max is 98.3. Plan is to continue the present management. 05/23/[id number]-ftfv-old female admitted with a right elbow abscess status post surgery wound cultures positive for MSSA presently on Zosyn and vancomycin afebrile she is going for PICC line for IV antibiotic therapy. (2) Hepatitis C carrier Is this a current diagnosis for this admission?: No (3) Qualifiers: Weeks of gestation: less than 8 weeks Qualified Code(s): Z3A.01 - Less than 8 weeks gestation of Is this a current diagnosis for this admission?: Yes (4) Tobacco abuse Is this a current diagnosis for this admission?: No - Time Time Spent with patient: 15-24 minutes Medications reviewed and adjusted accordingly: Yes Anticipated discharge: Home
[2019-05-23] MEDS: DOCUSATE SODIUM 100 MG CAPSULE PO SCH ×2 (10:54→18:03)
--- NOTE | 2019-05-23 11:34 | RADIOLOGY REPORT (SQ) ---
EXAM DESCRIPTION: PICC INSERTION; FLUORO/CV PLACEMENT; U/S GUIDE FOR VASCULAR ACCESS COMPLETED DATE/TIME: 05/23/2019 10:53 am REASON FOR STUDY: Need for antibiotics; IV ABX; IV ACCESS COMPARISON: None. FLUOROSCOPY TIME: Less than 1 second. 2 images saved to PACS. TECHNIQUE: Fluoroscopic and ultrasound guided PICC placement. LIMITATIONS: None. PROCEDURE: After written consent and assessment were obtained, the patient was brought into the fluo roscopy room and placed supine on the table. Ultrasound evaluation of potential access sites were per formed. After successfully identifying a patent left basilic vein, the left arm was prepped and drape d in a sterile fashion along with the ultrasound probe. The entry site was anesthetized with 1% lidoc shahab. A 21 gauge 7 cm needle was advanced through the skin and into the basilic vein under live ultra sound guidance. An ultrasound image was saved to PACS confirming access site. A .018 guide wire was then inserted through the needle and into the venous system. The needle was then removed and an 11 b lade scalpel was used to make a 1cm skin incision. A 5 fr peel-away sheath was advanced over the wir e and into the venous system. A measurement was then made using the existing wire and live fluoroscop ic guidance. The wire was then removed and trimmed. The PICC was advanced through the peel-away sheat h and into the venous system. The peel-away sheath was removed and the catheter was adhered to the pa tients arm with a stat lock. The catheter was then aspirated and flushed and a sterile bandage was pl aced over the access site. A fluoroscopic spot image was saved to PACS confirming the catheter tip w ithin the superior vena cava. IMPRESSION: SUCCESSFUL PLACEMENT OF A 5 FR DUAL LUMEN 34 CM PICC IN THE LEFT BASILIC VEIN. COMMENT: Patient medication list reviewed: Yes- Quality ID# [id number]:Eligible professional attests to doc umenting in the medical record they obtained, updated, or reviewed the patient's current medications. . Quality ID 145: Final reports for procedures using fluoroscopy that document radiation exposure ida henry, or exposure time and number of fluorographic images (if radiation exposure indices are not avail able) Quality ID #76: The patient was prepped and draped using maximum sterile barrier technique including cap, mask, sterile gown, sterile gloves, a large sterile sheet, hand hygiene, and 2% Chlorhexidine fo r cutaneous antisepsis. When ultrasound is used, sterile ultrasound techniques are followed requiring sterile gel and sterile probes. TECHNICAL DOCUMENTATION: JOB ID: [id number] [employer]- All Rights Reserved rev-03/30 Reading location - IP/workstation name: [email or web address]
[2019-05-23 11:48] LABS: VANCOMYCIN,TROUGH 7.3 ug/mL (5.0-20.0)
[2019-05-23] MEDS ORDERED: NORMAL SALINE 10 ML SDV (AFTER EACH USE) IV PRN (12:00)
--- NOTE | 2019-05-23 17:33 | PDOC PROGRESS REPORT ---
Subjective Progress Note for:: 05/23/19 Subjective:: Still complaining of pain at the right elbow. Reason For Visit: ABSCESS Physical Exam Vital Signs: Temp Pulse Resp BP Pulse Ox 98.3 F 78 14 126/58 H 97 05/23/19 15:22 05/23/19 15:22 05/23/19 15:22 05/23/19 15:22 05/23/19 15:22 Intake & Output 05/22/19 05/23/19 05/24/19 06:59 06:59 06:59 Intake Total 3305 4508 1050 Balance 3305 4508 1050 Weight 49.4 kg 50.1 kg General appearance: PRESENT: no acute distress, cooperative Extremities exam: PRESENT: other - Right elbow wound looks very clean. There is no surrounding erythema. Teto drains are in place. There is no evidence of undrained abscess. Results Laboratory Results: 05/21/19 06:07 05/21/19 21:45 05/20/19 05/20/19 05/20/19 13:13 13:13 13:13 Creatine Kinase 88 CK-MB (CK-2) 1.09 Troponin I < 0.012 05/20/19 05/20/19 05/21/19 22:55 22:55 06:07 Creatine Kinase 89 88 CK-MB (CK-2) Troponin I < 0.012 05/21/19 06:07 Creatine Kinase CK-MB (CK-2) Troponin I < 0.012 Impressions: Elbow X-Ray 05/20/19 13:05 IMPRESSION: There is a large soft tissue swelling over the olecranon process, which is significantly increased in size compared to prior examination dated 05/12/2019. In the stated setting of infection, this is concerning for abscess. Consider contrast-enhanced CT, MRI, or ultrasound to further evaluate for local fluid collection. Transvaginal US 05/21/19 00:00 IMPRESSION: LIVING INTRAUTERINE . EGA 6 weeks 2 days Trimester of : First - 0 to 13 weeks. Guidance Fluoroscopy 05/23/19 00:00 IMPRESSION: SUCCESSFUL PLACEMENT OF A 5 FR DUAL LUMEN 34 CM PICC IN THE LEFT BASILIC VEIN. Interventional Vascular Procedure 05/23/19 00:00 IMPRESSION: SUCCESSFUL PLACEMENT OF A 5 FR DUAL LUMEN 34 CM PICC IN THE LEFT BASILIC VEIN. PICC Line Insertion 05/23/19 00:00 IMPRESSION: SUCCESSFUL PLACEMENT OF A 5 FR DUAL LUMEN 34 CM PICC IN THE LEFT BASILIC VEIN. Assessment & Plan - Diagnosis (1) Abscess of bursa, right elbow Is this a current diagnosis for this admission?: Yes Plan: Looks like infection is under control. If it was not for her pain control issues requiring IV narcotics and IV Toradol, we could potentially discharge patient home with wound care. May need to consider pain management consult to assist in management in this patient. In general most patients with a similar wound as her would not need much narcotics for pain control at this point. Her history of IV drug abuse is certainly playing a role.
[2019-05-23] MEDS: CEFAZOLIN 1 GM/D5W RTU 1 GM/50 ML RTUPB IV SCH (18:35)
[2019-05-23] MEDS ORDERED: HYDROMORPHONE HCL INJ/PF 2 MG/ML AMPULE IV ONE (21:00)
[2019-05-23] MEDS ORDERED: ACETAMINOPHEN 1,000 MG/100 ML RTUPB IV ONE (22:00)
[2019-05-23] MEDS: OXYCODONE HCL IR 5 MG TABLET PO PRN (22:45)
[2019-05-23] MEDS: TEMAZEPAM 15 MG CAPSULE PO SCH (22:45)
[2019-05-23] MEDS: NORMAL SALINE 10 ML SDV (SCHEDULED) IV SCH (22:46)
[2019-05-23] MEDS: ONDANSETRON HCL INJ/PF 4 MG/2 ML SDV IV PRN (23:02)
[2019-05-24] MEDS: CEFAZOLIN 1 GM/D5W RTU 1 GM/50 ML RTUPB IV SCH ×3 (02:18→17:14)
[2019-05-24] MEDS: OXYCODONE HCL IR 5 MG TABLET PO PRN ×3 (02:54→11:34)
[2019-05-24 06:09] LABS: HEMATOCRIT 30.7 % (36.0-47.0); HEMOGLOBIN 10.1 g/dL (12.0-15.5); MEAN CORPUSCULAR HEMOGLOBIN 27.6 pg (27.0-33.4); MEAN CORPUSCULAR HGB CONC 32.9 g/dL (32.0-36.0); MEAN CORPUSCULAR VOLUME 84 fl (80-97); PLATELET COUNT 503 10^3/uL (150-450); RED BLOOD COUNT 3.67 10^6/uL (3.72-5.28); RED CELL DISTRIBUTION WIDTH 15.8 % (11.5-14.0); WHITE BLOOD COUNT 6.8 10^3/uL (4.0-10.5)
[2019-05-24 06:11] LABS: ALANINE AMINOTRANSFERASE 91 U/L (9-52); ALBUMIN 3.8 g/dL (3.5-5.0); ALKALINE PHOSPHATASE 132 U/L (38-126); ANION GAP 11 (5-19); ASPARTATE AMINO TRANSFERASE 77 U/L (14-36); BLOOD UREA NITROGEN 11 mg/dL (7-20); CALCIUM 9.3 mg/dL (8.4-10.2); CARBON DIOXIDE 26 mmol/L (22-30); CHLORIDE 101 mmol/L (98-107); GLUCOSE 83 mg/dL (75-110); POTASSIUM 4.6 mmol/L (3.6-5.0); SODIUM 137.9 mmol/L (137-145)
[2019-05-24 06:14] LABS: BILIRUBIN,TOTAL < 0.1 mg/dL (0.2-1.3)
[2019-05-24] MEDS: ACETAMINOPHEN 325 MG TABLET PO SCH ×3 (06:40→22:05)
[2019-05-24 07:47] LABS: ABSOLUTE MONOCYTES # (MANUAL) 0.5 10^3/uL (0.1-1.4); BASOPHILS % (MANUAL) 1 % (0-2); EOSINOPHILS % (MANUAL) 5 % (0-6); LYMPHOCYTES % (MANUAL) 30 % (13-45); METAMYELOCYTES % (MANUAL) 3 % (0); MONOCYTES % (MANUAL) 7 % (3-13); SEGMENTED NEUTROPHILS % (MAN) 54 % (42-78); TOTAL CELLS COUNTED 100
[2019-05-24 07:49] LABS: ANISOCYTOSIS SLIGHT; OVALOCYTES SLIGHT; PLATELET COMMENT INCREASED; POIKILOCYTOSIS SLIGHT; POLYCHROMASIA SLIGHT; TOXIC GRANULATION 1+
[2019-05-24 10:47] LABS: PATH REVIEW PATHOLOGIST REVIEWED
[2019-05-24] MEDS: DOCUSATE SODIUM 100 MG CAPSULE PO SCH ×2 (11:36→17:15)
[2019-05-24] MEDS: ONDANSETRON HCL INJ/PF 4 MG/2 ML SDV IV PRN (11:43)
[2019-05-24] MEDS: NORMAL SALINE 10 ML SDV (SCHEDULED) IV SCH ×2 (11:51→22:08)
--- NOTE | 2019-05-24 12:30 | PDOC PROGRESS REPORT ---
Subjective Progress Note for:: 05/24/19 Subjective:: 29-year-old female with history of IV drug abuse with first trimester admitted for right elbow abscess status post I&D was done yesterday. Patient is receiving IV vancomycin and Zosyn. No acute events in the last 24 hours. Cultures are pending. 05/22/[id number]-bdfx-old female admitted with right elbow abscess status post surgery was done. Dr. De Anda saw the patient this morning blood cultures came back negative and wound cultures are came back positive for gram-positive cocci recently on IV vancomycin and Zosyn plan is to continue the antibiotics for at least another day or 2. 05/23/[id number]-qkpx-old female admitted with right elbow abscess status post surgery culture came back positive for MSSA on IV Zosyn and vancomycin. Patient's main concerns is pain she is receiving 3 mg of IV morphine every 2 hours as needed she thinks is not enough she wants Dilaudid to start on Toradol 15 mg IV every 6 as needed if it is okay with the pharmacy. She keep on losing the IV access she went for PICC line today. 05/24/[id number]-pksx-old female admitted with right elbow abscess status post surgery. Package was removed. Surgical team is following the patient regular basis. Her main concern is the pain management. Patient has history of diabetes and abuse. I am in consultation with the pharmacy about managing her pain medications because she is . Reason For Visit: ABSCESS Physical Exam Vital Signs: Temp Pulse Resp BP Pulse Ox 98.6 F 86 16 130/62 H 100 05/24/19 12:06 05/24/19 12:06 05/24/19 12:06 05/24/19 12:06 05/24/19 12:06 Intake & Output 05/23/19 05/24/19 05/25/19 06:59 06:59 06:59 Intake Total 4508 3698 Balance 4508 3698 Weight 50.1 kg 52.1 kg General appearance: PRESENT: no acute distress Head exam: PRESENT: atraumatic Eye exam: PRESENT: PERRLA Mouth exam: PRESENT: moist, tongue midline Teeth exam: PRESENT: poor dentation Neck exam: ABSENT: carotid bruit, JVD, lymphadenopathy, thyromegaly Respiratory exam: PRESENT: clear to auscultation nathaniel. ABSENT: rales, rhonchi, wheezes Pulses: PRESENT: normal dorsalis pedis pul Rectal exam: PRESENT: deferred Neurological exam: PRESENT: alert, awake, oriented to person, oriented to place, oriented to time, oriented to situation, CN II-XII grossly intact. ABSENT: motor sensory deficit Psychiatric exam: PRESENT: appropriate affect, normal mood. ABSENT: homicidal ideation, suicidal ideation Results Laboratory Results: 05/24/19 05:15 05/24/19 05:15 05/24/19 05/24/19 05:15 05:15 WBC 6.8 RBC 3.67 L Hgb 10.1 L Hct 30.7 L MCV 84 MCH 27.6 MCHC 32.9 RDW 15.8 H Plt Count 503 H Seg Neutrophils % Not Reportable Lymphocytes % Not Reportable Monocytes % Not Reportable Eosinophils % Not Reportable Basophils % Not Reportable Absolute Neutrophils Not Reportable Absolute Lymphocytes Not Reportable Absolute Monocytes Not Reportable Absolute Eosinophils Not Reportable Absolute Basophils Not Reportable Sodium 137.9 Potassium 4.6 Chloride 101 Carbon Dioxide 26 Anion Gap 11 BUN 11 Creatinine 0.60 Est GFR ( Amer) > 60 Est GFR (Non-Af Amer) > 60 Glucose 83 Calcium 9.3 Magnesium 1.9 Total Bilirubin < 0.1 L AST 77 H ALT 91 H Alkaline Phosphatase 132 H Total Protein 7.0 Albumin 3.8 05/20/19 05/20/19 05/20/19 13:13 13:13 13:13 Creatine Kinase 88 CK-MB (CK-2) 1.09 Troponin I < 0.012 05/20/19 05/20/19 05/21/19 22:55 22:55 06:07 Creatine Kinase 89 88 CK-MB (CK-2) Troponin I < 0.012 05/21/19 06:07 Creatine Kinase CK-MB (CK-2) Troponin I < 0.012 Impressions: Elbow X-Ray 05/20/19 13:05 IMPRESSION: There is a large soft tissue swelling over the olecranon process, which is significantly increased in size compared to prior examination dated 05/12/2019. In the stated setting of infection, this is concerning for abscess. Consider contrast-enhanced CT, MRI, or ultrasound to further evaluate for local fluid collection. Transvaginal US 05/21/19 00:00 IMPRESSION: LIVING INTRAUTERINE . EGA 6 weeks 2 days Trimester of : First - 0 to 13 weeks. Guidance Fluoroscopy 05/23/19 00:00 IMPRESSION: SUCCESSFUL PLACEMENT OF A 5 FR DUAL LUMEN 34 CM PICC IN THE LEFT BASILIC VEIN. Interventional Vascular Procedure 05/23/19 00:00 IMPRESSION: SUCCESSFUL PLACEMENT OF A 5 FR DUAL LUMEN 34 CM PICC IN THE LEFT BASILIC VEIN. PICC Line Insertion 05/23/19 00:00 IMPRESSION: SUCCESSFUL PLACEMENT OF A 5 FR DUAL LUMEN 34 CM PICC IN THE LEFT BASILIC VEIN. Assessment and Plan - Diagnosis (1) Abscess of bursa, right elbow Is this a current diagnosis for this admission?: Yes Plan: 05/20/2019-patient is going to be admitted to medical floor with a right elbow abscess blood cultures urine cultures done in the ER started on vancomycin and Zosyn for pain started on IV morphine GI prophylaxis was initiated because the p atient is going to the OR no DVT prophylaxis was initiated. Started on IV fluids at 100 cc/h. Lactic acid level is 1.8 and repeat lactic acid level will be done. Consult patient with Dr. Olivas was done. 05/21/[id number]-hbvu-old female admitted with abscess around the right elbow status post I&D was done yesterday. Wound cultures and blood cultures are pending. On IV Zosyn and vancomycin. Afebrile T-max is 98.3. Plan is to continue the present management. 05/23/[id number]-fvnk-old female admitted with a right elbow abscess status post surgery wound cultures positive for MSSA presently on Zosyn and vancomycin afebrile she is going for PICC line for IV antibiotic therapy. 05/24/[id number]-axkx-old female came in with right elbow abscess of bursa status post surgery. She is getting the wet-to-dry dressings on daily basis. Once the pain is controlled plan is to discharge her home. Wound cultures came back positive for MSSA on cefazolin. (2) Hepatitis C carrier Is this a current diagnosis for this admission?: No (3) Qualifiers: Weeks of gestation: less than 8 weeks Qualified Code(s): Z3A.01 - Less than 8 weeks gestation of Is this a current diagnosis for this admission?: Yes (4) Tobacco abuse Is this a current diagnosis for this admission?: No - Time Time Spent with patient: 25-34 minutes Medications reviewed and adjusted accordingly: Yes Anticipated discharge: Home
--- NOTE | 2019-05-24 13:59 | PDOC PROGRESS REPORT ---
Subjective Progress Note for:: 05/24/19 Subjective:: Complaining of 5 out of 10 pain. No fever overnight. Reason For Visit: ABSCESS Physical Exam Vital Signs: Temp Pulse Resp BP Pulse Ox 98.6 F 86 16 130/62 H 100 05/24/19 12:06 05/24/19 12:06 05/24/19 12:06 05/24/19 12:06 05/24/19 12:06 Intake & Output 05/23/19 05/24/19 05/25/19 06:59 06:59 06:59 Intake Total 4508 3698 Balance 4508 3698 Weight 50.1 kg 52.1 kg General appearance: PRESENT: no acute distress Musculoskeletal exam: PRESENT: other - Right arm looks great after dressing removed. Loop drains in position. Open debridement site granulating and satisfactorily Results Laboratory Results: 05/24/19 05:15 05/24/19 05:15 05/24/19 05/24/19 05:15 05:15 WBC 6.8 RBC 3.67 L Hgb 10.1 L Hct 30.7 L MCV 84 MCH 27.6 MCHC 32.9 RDW 15.8 H Plt Count 503 H Seg Neutrophils % Not Reportable Lymphocytes % Not Reportable Monocytes % Not Reportable Eosinophils % Not Reportable Basophils % Not Reportable Absolute Neutrophils Not Reportable Absolute Lymphocytes Not Reportable Absolute Monocytes Not Reportable Absolute Eosinophils Not Reportable Absolute Basophils Not Reportable Sodium 137.9 Potassium 4.6 Chloride 101 Carbon Dioxide 26 Anion Gap 11 BUN 11 Creatinine 0.60 Est GFR ( Amer) > 60 Est GFR (Non-Af Amer) > 60 Glucose 83 Calcium 9.3 Magnesium 1.9 Total Bilirubin < 0.1 L AST 77 H ALT 91 H Alkaline Phosphatase 132 H Total Protein 7.0 Albumin 3.8 05/20/19 05/20/19 05/20/19 13:13 13:13 13:13 Creatine Kinase 88 CK-MB (CK-2) 1.09 Troponin I < 0.012 05/20/19 05/20/19 05/21/19 22:55 22:55 06:07 Creatine Kinase 89 88 CK-MB (CK-2) Troponin I < 0.012 05/21/19 06:07 Creatine Kinase CK-MB (CK-2) Troponin I < 0.012 Impressions: Elbow X-Ray 05/20/19 13:05 IMPRESSION: There is a large soft tissue swelling over the olecranon process, which is significantly increased in size compared to prior examination dated 05/12/2019. In the stated setting of infection, this is concerning for abscess. Consider contrast-enhanced CT, MRI, or ultrasound to further evaluate for local fluid collection. Transvaginal US 05/21/19 00:00 IMPRESSION: LIVING INTRAUTERINE . EGA 6 weeks 2 days Trimester of : First - 0 to 13 weeks. Guidance Fluoroscopy 05/23/19 00:00 IMPRESSION: SUCCESSFUL PLACEMENT OF A 5 FR DUAL LUMEN 34 CM PICC IN THE LEFT BASILIC VEIN. Interventional Vascular Procedure 05/23/19 00:00 IMPRESSION: SUCCESSFUL PLACEMENT OF A 5 FR DUAL LUMEN 34 CM PICC IN THE LEFT BASILIC VEIN. PICC Line Insertion 05/23/19 00:00 IMPRESSION: SUCCESSFUL PLACEMENT OF A 5 FR DUAL LUMEN 34 CM PICC IN THE LEFT BASILIC VEIN. Assessment & Plan - Diagnosis (1) Abscess of bursa, right elbow Is this a current diagnosis for this admission?: Yes Plan: Impression: Patient now 4 days status post operative debridement, drain placement, doing well, responded to intravenous antibiotics and dressing changes. Growing staph sensitive to most microorganisms. Recommendations: 1. Get in shower, manipulate drains. 2. Would like to get patient off narcotics; unsure if this is even possible given her drug addiction 3. Otherwise patient can likely be discharged home in the next 24 hours. (2) Hepatitis C carrier Is this a current diagnosis for this admission?: No (3) Hepatitis C carrier Is this a current diagnosis for this admission?: Yes (4) Qualifiers: Weeks of gestation: less than 8 weeks Qualified Code(s): Z3A.01 - Less than 8 weeks gestation of Is this a current diagnosis for this admission?: Yes (5) History of intravenous drug abuse Is this a current diagnosis for this admission?: Yes
--- NOTE | 2019-05-24 14:22 | PSYCHOLOGICAL NOTE ---
Psych Note - Psych Note Date seen by psych provider: 05/24/19 Time seen by psych provider: 13:10 Psych Note: Reason consult: mental health and substance abuse Patient is alert and orientated to person, place, time and circumstance. Mood is labile with congruent affect. Patient denies suicidal homicidal ideations. Delusions are absent behaviors congruent with intact reality based presentation I organized and linear thought process. Eye contact is fair. Conversational speech fluctuates and is congruent with mood. Intellectual abilities appear to be within the average range. Attention and concentration are fair. Insight, judgment, impulse control are fair. Clinician contacted [facility] Clinician contacted [facility] Diagnosis Polysubstance abuse Borderline personality disorder per history provided by patient no medication recommendations at this time Impression/Plan: Patient is cleared from acute psychiatric services. Patient's mood fluctuates between irritability to tearful. Patient is demonstrating characteristic that are congruent both the patient's diagnosis of substance abuse and borderline personality disorder. Patient has requested to speak again with clinician tomorrow for therapeutic services; patient will be seen. Patient is currently denying wanting assistance with substance abuse. She reports she is not the primary caregiver of her children. Clinician contacted [facility] and confirmed they received a request from [place], [place] to conduct homestudy (normally conducted prior to adoption) for the patient's youngest child; study is not for the patient or patient's home. Clinician contacted [facility]. Child Protective Services (CPS) report for current and concerns of patient's substance abuse cannot be submitted until that of the child. At this time medication recommendations cannot be provided as patient is in her first trimester of . Dr. Arambula was consulted to care management of this patient; attending physicians in agreement with recommendations and dis position.
--- NOTE | 2019-05-24 14:52 | CONSULT/HISTORY AND PHYSICAL E ---
Consultation/History and Physical PATIENT NAME: AYDE CONNELL : 1990 AGE: 29Y DATE: 05/23/2019 ROOM: 530 CHIEF COMPLAINT: Right elbow pain. HISTORY OF PRESENT ILLNESS: This is a 29-year-old female admitted for right elbow abscess I and D and IV antibiotics. Cultures were positive for Staphylococcus aureus. She underwent the I and D of the right elbow on 05/20/2019. She is still experiencing severe pain 5/5 despite IV morphine, which she reports was not effective at all even at the 4 mg dose, but she reports they will not give her anything else, but she does not want to take it if it is not helping but does not have a choice at this point. She is also , confirmed on a transvaginal ultrasound on 05/21 with an estimated gestation of 6 weeks and 2 days at that time. She has not been able to sleep. She denies fever, chills, nausea, vomiting, or constipation. She reports loose stools. She denies pelvic pain or vaginal bleeding. PAST MEDICAL HISTORY: Positive for hepatitis C and a history of MRSA. PAST SURGICAL HISTORY: She has had a , tonsil and adenoidectomy, and again recently a right elbow abscess I and D on 05/20/19. SOCIAL HISTORY: She has previous IV drug abuse more than 2 years ago, denies recent use. She does use tobacco daily and marijuana as well. FAMILY HISTORY: Not pertinent. MEDICATIONS: See the MAR. Her at home meds currently are Bentyl and Motrin, and she recently finished some antibiotics. ALLERGIES: NKDA. REVIEW OF SYSTEMS: See HPI. PHYSICAL EXAMINATION: VITAL SIGNS: Done at 1522, temperature was 98.3, pulse was 78, blood pressure 126/58 on the left, respirations were 14, oxygen was 97% on room air. GENERAL: This is a well-developed, well-nourished female in no acute distress but is portraying some mild pain behavior. EYES: Her pupils are equally round and normal in size. Grossly full EOMI. LUNGS: Respirations are unlabored, even work of breathing. ABDOMEN: Soft, nontender. There are hyperactive bowel sounds audible without a stethoscope. EXTREMITIES: The right elbow is wrapped in a surgical dressing that is clean, dry, and intact, and the arm is propped up on a pillow. She moves her other limbs freely and while lying supine in the bed. NEUROLOGIC: She is alert and oriented x3. Cranial nerves II through XII are grossly intact. ASSESSMENT: 1. Right elbow pain, status post abscess I and D. 2. . PLAN: 1. Please discontinue Toradol as she is and we need to avoid all NSAIDs given risk of miscarriage and cardiac malformation. 2. We are going to discontinue all IV pain medications and try to avoid given her history of IV drug abuse. We will give her a single dose of IV Dilaudid for immediate pain relief. We will also start OxyIR 10 mg every 4 hours p.r.n. pain 3-03/17. We are going to start acetaminophen IV 1000 mg every 8 hours scheduled. Ideally once the IV antibiotics are figured out and take effect the pain will improve as the infection starts to clear, and we will minimize or discontinue use of opioids at that time. DICTATING PHYSICIAN: TERESA COSBY PA-C [id number] PHY#: [id number] ID: [id number] JOB#: [id number] ACCT: [id number] cc:BRUNA LIVINGSTON PA-C > MTDD
[2019-05-24] MEDS ORDERED: HYDROMORPHONE HCL INJ/PF 2 MG/ML AMPULE IV ONE (17:00)
[2019-05-24] MEDS: TEMAZEPAM 15 MG CAPSULE PO SCH (22:05)
[2019-05-24] MEDS: HYDROMORPHONE HCL 2 MG TABLET PO PRN (22:05)
[2019-05-25] MEDS: CEFAZOLIN 1 GM/D5W RTU 1 GM/50 ML RTUPB IV SCH ×2 (01:12→10:00)
[2019-05-25] MEDS: HYDROMORPHONE HCL 2 MG TABLET PO PRN ×3 (02:08→11:00)
[2019-05-25] MEDS: ACETAMINOPHEN 325 MG TABLET PO SCH ×2 (06:32→13:48)
[2019-05-25] MEDS: DOCUSATE SODIUM 100 MG CAPSULE PO SCH (09:37)
[2019-05-25] MEDS: NORMAL SALINE 10 ML SDV (SCHEDULED) IV SCH (11:03)
--- NOTE | 2019-05-25 11:38 | PDOC DISCHARGE SUMMARY ---
General - Admit/Disc Date/PCP Admission Date/Primary Care Provider: 05/20/19 17:41 Discharge Date: 05/25/19 - Discharge Diagnosis (1) Abscess of bursa, right elbow Is this a current diagnosis for this admission?: Yes Summary: 05/20/2019-patient is going to be admitted to medical floor with a right elbow abscess blood cultures urine cultures done in the ER started on vancomycin and Zosyn for pain started on IV morphine GI prophylaxis was initiated because the patient is going to the OR no DVT prophylaxis was initiated. Started on IV fluids at 100 cc/h. Lactic acid level is 1.8 and repeat lactic acid level will be done. Consult patient with Dr. Olivas was done. 05/21/[id number]-byda-old female admitted with abscess around the right elbow status post I&D was done yesterday. Wound cultures and blood cultures are pending. On IV Zosyn and vancomycin. Afebrile T-max is 98.3. Plan is to continue the present management. 05/23/[id number]-pgos-old female admitted with a right elbow abscess status post surgery wound cultures positive for MSSA presently on Zosyn and vancomycin afebrile she is going for PICC line for IV antibiotic therapy. 05/24/[id number]-bsoi-old female came in with right elbow abscess of bursa status post surgery. She is getting the wet-to-dry dressings on daily basis. Once the pain is controlled plan is to discharge her home. Wound cultures came back p ositive for MSSA on cefazolin. 05/25/[id number]-mjjm-old female admitted with abscess of bursa at the right elbow status post surgery was done. Wound cultures came back positive for MSSA as per the pharmacy patient can be discharged on Augmentin. Surgical team was to follow her as an outpatient. Patient agreed to go home today I gave the prescription for Percocets every 4 as needed for a total of 20 pills. (2) Hepatitis C carrier Is this a current diagnosis for this admission?: No (3) Is this a current diagnosis for this admission?: Yes Summary: 05/25/2019-patient has recent as per the ultrasound report may be around 7 to 8 weeks gestation. Patient is strongly advised to follow-up with OBG as an outpatient. OBG consult was done during the hospital stay we followed OBG recommendations. (4) Tobacco abuse Is this a current diagnosis for this admission?: No Summary: 05/25/2019-patient is a daily smoker smoking counseling was provided for more than 20 minutes strongly advised to quit smoking. - Additional Information Resuscitation Status: Full Code Discharge Activity: Activity As Tolerated Prescriptions: Amox Tr/Potassium Clavulanate [Augmentin 875-125 mg Tablet] 1 tab PO BID #20 tablet Oxycodone HCl/Acetaminophen [Percocet 10-325 Mg Tablet] 1 each PO Q4HP PRN #20 tablet PRN Reason: Home Medications: Dicyclomine HCl [Bentyl 20 mg Tablet] 20 mg PO QID #14 tablet 03/15/16 Dicyclomine HCl [Bentyl 10 mg Capsule] 1 cap PO TID #14 cap 04/29/17 Amox Tr/Potassium Clavulanate [Augmentin 875-125 mg Tablet] 1 tab PO BID #20 tablet 05/25/19 Oxycodone HCl/Acetaminophen [Percocet 10-325 Mg Tablet] 1 each PO Q4HP PRN #20 tablet 05/25/19 History of Present Illness History of Present Illness: AYDE CONNELL is a 29 year old female history of hepatitis C and history of IV drug abuse smoker, pregmnt in ist trimister came to the emergency room with complaints of her right elbow abscess. According to the patient is started 1 week ago came here to the ER last Monday she was discharged on clindamycin and Bactrim the abscess continued to get bigger associated with severe extreme pain decided to came to the emergency room for further evaluation today. The ER letter spoke to Dr. Olivas he wants to take the patient to the OR [facility] but he requested for the medical team to admit the patient as requested the ER prov ider to get in touch with [employer] Dr. Conti because she is a female under Dr. Conti advises because is less than 7 weeks it is okay for the medical team to admit the patient. I am reluctant to admit the patient under my service but looks like I have no other choice. Spoke to the pharmacy about pain management like morphine and IV vancomycin and Zosyn for antibiotic therapy they did not see any contraindication about giving this medication to the female. Hospital Course Hospital Course: 29-year-old female with of 7 weeks duration admitted with abscess at the right elbow status post surgery was done. Surgical team follow the patient on regular basis. Cultures came back positive for MSSA she is going home on Au gmentin today. Physical Exam Vital Signs: Temp Pulse Resp BP Pulse Ox 98.7 F 82 12 112/45 L 99 05/25/19 08:04 05/25/19 08:04 05/25/19 08:04 05/25/19 08:04 05/25/19 08:04 Intake & Output 05/24/19 05/25/19 05/26/19 06:59 06:59 06:59 Intake Total 3698 2162 Balance 3698 2162 Weight 52.1 kg 58.8 kg General appearance: PRESENT: no acute distress Head exam: PRESENT: atraumatic Eye exam: PRESENT: PERRLA Mouth exam: PRESENT: moist, tongue midline Teeth exam: PRESENT: poor dentation Neck exam: ABSENT: carotid bruit, JVD, lymphadenopathy, thyromegaly Respiratory exam: PRESENT: clear to auscultation nathaniel. ABSENT: rales, rhonchi, wheezes Pulses: PRESENT: normal dorsalis pedis pul GI/Abdominal exam: PRESENT: normal bowel sounds, soft. ABSENT: distended, guarding, mass, organolmegaly, rebound, tenderness Rectal exam: PRESENT: deferred Extremities exam: PRESENT: full ROM. ABSENT: calf tenderness, clubbing, pedal edema Neurological exam: PRESENT: alert, awake, oriented to person, oriented to place, oriented to time, oriented to situation, CN II-XII grossly intact. ABSENT: motor sensory deficit Psychiatric exam: PRESENT: agitated Skin exam: PRESENT: other - He has postsurgical wound on the right elbow looks clean. Advised daily dressing. Results Laboratory Results: 05/24/19 05:15 05/24/19 05:15 05/20/19 05/20/19 05/20/19 13:13 13:13 13:13 Creatine Kinase 88 CK-MB (CK-2) 1.09 Troponin I < 0.012 05/20/19 05/20/19 05/21/19 22:55 22:55 06:07 Creatine Kinase 89 88 CK-MB (CK-2) Troponin I < 0.012 05/21/19 06:07 Creatine Kinase CK-MB (CK-2) Troponin I < 0.012 Impressions: Elbow X-Ray 05/20/19 13:05 IMPRESSION: There is a large soft tissue swelling over the olecranon process, which is significantly increased in size compared to prior examination dated 05/12/2019. In the stated setting of infection, this is concerning for abscess. Consider contrast-enhanced CT, MRI, or ultrasound to further evaluate for local fluid collection. Transvaginal US 05/21/19 00:00 IMPRESSION: LIVING INTRAUTERINE . EGA 6 weeks 2 days Trimester of : First - 0 to 13 weeks. Guidance Fluoroscopy 05/23/19 00:00 IMPRESSION: SUCCESSFUL PLACEMENT OF A 5 FR DUAL LUMEN 34 CM PICC IN THE LEFT BASILIC VEIN. Interventional Vascular Procedure 05/23/19 00:00 IMPRESSION: SUCCESSFUL PLACEMENT OF A 5 FR DUAL LUMEN 34 CM PICC IN THE LEFT BASILIC VEIN. PICC Line Insertion 05/23/19 00:00 IMPRESSION: SUCCESSFUL PLACEMENT OF A 5 FR DUAL LUMEN 34 CM PICC IN THE LEFT BASILIC VEIN. Qualifiers - * PATIENT BEING DISCHARGED WITH ANY OF THE FOLLOWING DIAGNOSIS: No Acute Heart Failure - Is this a Heart Failure Patient?: No
[2019-05-25 14:16] VITALS: BP 130/90
== END 2019-05-25 16:13 | disposition home or self-care (01) | DRG 832 ==
LOC: ER 12:48 → 5 17:41
PROVIDERS: ADMIT Internal Medicine; ATTEND Internal Medicine
PROC: 0J9G00Z Drainage of Right Lower Arm Subcutaneous Tissue and Fascia with Drainage Device, Open Approach (ICD-10-PCS; principal; 2019-05-20 17:30)
PROC: 02HV33Z Insertion of Infusion Device into Superior Vena Cava, Percutaneous Approach (ICD-10-PCS; 2019-05-23)
DX: O98.811 Other maternal infectious and parasitic diseases complicating pregnancy, first trimester (principal); O99.321 Drug use complicating pregnancy, first trimester; M71.021 Abscess of bursa, right elbow; F12.90 Cannabis use, unspecified, uncomplicated; F41.9 Anxiety disorder, unspecified; O99.331 Smoking (tobacco) complicating pregnancy, first trimester; Z3A.01 Less than 8 weeks gestation of pregnancy; O99.341 Other mental disorders complicating pregnancy, first trimester; B18.2 Chronic viral hepatitis C; B95.61 Methicillin susceptible Staphylococcus aureus infection as the cause of diseases classified elsewhere
CPT/HCPCS: 01710; 36415; 36569; 76817; 76937; 77001; 80053; 80202; 80307; 81001; 82550; 82553; 82565; 83605; 83735; 84443; 84484; 84702; 85025; 85610; 85652; 86140; 87040; 87070; 87075; 87077; 87186; 87205; 93976; 96374; 96375; 99284; J0131; J0690; J1100; J1170; J1642; J1885; J2270; J2405; J2543; J2550; J2704; J3010; J3370; J3490; J7030; J7050; J7060

== ENCOUNTER 2019-08-23 15:08 | Emergency (ER) | payer SELFPAY ==
[2019-08-23 15:16] VITALS: BP 154/78
[2019-08-23] MEDS ORDERED: METOCLOPRAMIDE HCL 10 MG TABLET PO ONE (15:27)
[2019-08-23] MEDS ORDERED: ACETAMINOPHEN 325 MG TABLET PO ONE (15:27)
--- NOTE | 2019-08-23 15:29 | ER Document Report ---
ED Medical Screen (RME) - General Chief Complaint: Abscess Stated Complaint: POSSIBLE ABSCESS ON KNEE Time Seen by Provider: 08/23/19 15:27 TRAVEL OUTSIDE OF THE [place] IN LAST 30 DAYS: No - HPI Notes: 08/23/19 15:27 Patient is a 29-year-old female is approximately 5 months who presents complaining of an infection to her proximal lower leg anteriorly that she started noticing yesterday. No history of MRSA. Patient states that it was a robles that she expressed. Patient states that she had a really bad infection in the past and became septic and needed an incision and drainage performed to her right elbow at that time. Denies drug allergies. I have treated and performed a rapid initial assessment of this patient. A comprehensive ED assessment and evaluation of the patient, analysis of test results and completion of medical decision making process will be conducted by additional ED providers. PHYSICAL EXAMINATION: GENERAL: Well-appearing, well-nourished and in no acute distress. Skin: there is a small erythemic area with mild induration noted to the anterior lower tibia tubercle area. No obvious discharge or streaks. No erythema/swelling/warmth of the knee. - Related Data Allergies/Adverse Reactions: No Known Allergies Allergy (Verified 05/20/18 11:17) Past Medical History Renal/ Medical History: Denies: Hx Peritoneal Dialysis GI Medical History: Reports: Hx Hepatitis Psychiatric Medical History: Reports: Hx Anxiety Infectious Medical History: Reports: Hx Hepatitis, Hx MRSA, Hx VRE Past Surgical History: Reports: Hx Adenoidectomy, Hx Section, Hx Tonsillectomy - & adenoids - Immunizations Immunizations up to date: Yes Hx Diphtheria, Pertussis, Tetanus Vaccination: No Physical Exam - Vital signs Vitals: Temp Pulse Resp BP Pulse Ox 98 F 102 H 18 154/78 H 99 08/23/19 15:15 08/23/19 15:15 08/23/19 15:15 08/23/19 15:15 08/23/19 15:15 Course - Vital Signs Vital signs: Temp Pulse Resp BP Pulse Ox 98 F 102 H 18 154/78 H 99 08/23/19 15:15 08/23/19 15:15 08/23/19 15:15 08/23/19 15:15 08/23/19 15:15
--- NOTE | 2019-08-23 15:56 | ER Document Report ---
HPI - HPI Time Seen by Provider: 08/23/19 15:27 Pain Level: 3 Context: Patient is a 29-year-old female 5 months who presents to the emergency department with a chief complaint of left knee pain. Patient noticed she had purulent pocket of fluid to her left knee 2 days ago. She states that she expressed the area and had purulent drainage from the area. Patient states that she has had some chills and is unknown of whether or not she has had a fever. Patient has had an abscess before and became septic from it. Denies any MRSA. Patient has a history of IV drug abuse. - CONSTITUTIONAL Constitutional: REPORTS: Chills. DENIES: Fever - EENT EENT: DENIES: Sore Throat, Ear Pain, Nasal Drainage-Clear, Congestion, Eye problems - NEURO Neurology: DENIES: Headache - RESPIRATORY Respiratory: DENIES: Coughing - GASTROINTESTINAL Gastrointestinal: REPORTS: Nausea. DENIES: Abdominal Pain, Patient vomiting, Diarrhea - REPRODUCTIVE Reproductive: REPORTS: : - MUSCULOSKELETAL Musculoskeletal: REPORTS: Extremity pain - Left knee - DERM Skin Color: Normal Skin Problems: None Past Medical History - General Information source: Patient - Social History Smoking Status: Current Every Day Smoker Chew tobacco use (# tins/day): No Frequency of alcohol use: None Drug Abuse: Marijuana Family History: Reviewed & Not Pertinent Patient has suicidal ideation: No Patient has homicidal ideation: No Renal/ Medical History: Denies: Hx Peritoneal Dialysis GI Medical History: Reports: Hx Hepatitis Psychiatric Medical History: Reports: Hx Anxiety Infectious Medical History: 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 IN LAST 30 DAYS: No - HEENT HEENT: Atraumatic, Normocephalic, PERRLA - NECK Neck: Normal Inspection - RESPIRATORY Respiratory: Breath Sounds Normal, No Respiratory Distress - CARDIOVASCULAR Cardiovascular: Regular Rate, Regular Rhythm Pulses: Normal: Radial - GI/ABDOMEN Gastrointestinal: Abdomen Soft - MUSCULOSKELETAL/EXTREMETIES Musculoskeletal/Extremeties: FROM - NEURO Level of Consciousness: Awake, Alert, Appropriate Motor/Sensory: No Motor Deficit, No Sensory Deficit - DERM Integumentary: Warm, Dry, Abscess - Already erupted and drained to left knee Course - Re-evaluation Re-evalutation: 08/23/19 15:49 Bedside ultrasound was done and no pocket of fluid was noted. Patient will be started on clindamycin for cellulitis and abscess. I have very low suspicion for necrotizing fasciitis. Follow-up precautions were given. Verbal discharge instructions were given to the patient. They verbalized understanding. They are stable for discharge. - Vital Signs Vital signs: Temp Pulse Resp BP Pulse Ox 98 F 102 H 18 154/78 H 99 08/23/19 15:15 08/23/19 15:15 08/23/19 15:15 08/23/19 15:15 08/23/19 15:15 Discharge - Discharge Clinical Impression: Abscess, Cellulitis Qualifiers: Site of cellulitis: extremity Site of cellulitis of extremity: lower extremity Laterality: left Qualified Code(s): L03.116 - Cellulitis of left lower limb Condition: Stable Disposition: HOME, SELF-CARE Instructions: Abscess ([facility]), Cellulitis ([facility]), Clindamycin ([facility]) Additional Instructions: The rash is likely due to infection of your skin. You need to take the antibiotics as prescribed. Do not stop even if the rash goes away until you have completed all the antibiotics. The area of redness was traced out here in the emergency department with a marking pen. You need to return to emergency department if the redness spreads outside of this area by more than 2 cm in any direction. You should also return if you develop fevers with temperature greater than 101, persistent vomiting, worsening pain, or have any other symptoms that are concerning to you. Prescriptions: Clindamycin HCl [Cleocin 150 mg Capsule] 300 mg PO Q6 7 Days #56 capsule Forms: Smoking Cessation Education Referrals: [facility] [Provider Group] - Follow up in 3-5 days [facility] [Provider Group] - Follow up as needed
== END 2019-08-23 16:05 | disposition home or self-care (01) ==
LOC: ER 15:08
DX: O26.92 Pregnancy related conditions, unspecified, second trimester (principal); L03.116 Cellulitis of left lower limb; M25.562 Pain in left knee; R11.0 Nausea; O99.332 Smoking (tobacco) complicating pregnancy, second trimester
CPT/HCPCS: 99283

== ENCOUNTER 2019-08-24 23:02 | Emergency (ER) | payer SELFPAY ==
[2019-08-25] MEDS ORDERED: LIDOCAINE 1%/EPINEPHRINE INJ 20 ML VIAL INJ ONE (01:10)
[2019-08-25] MEDS ORDERED: OXYCODONE-ACETAMINOPHEN 5-325 MG TABLET PO ONE (01:12)
[2019-08-25] MEDS ORDERED: PROMETHAZINE HCL 25 MG TABLET PO ONE (01:12)
--- NOTE | 2019-08-25 01:13 | ER Document Report ---
ED Skin Rash/Insect Bite/Abscs - General Chief Complaint: Abscess Stated Complaint: PAIN Time Seen by Provider: 08/25/19 01:05 Notes: Patient is a 29-year-old female that comes emergency department for chief complaint of an abscess of the left knee. She was seen 2 days ago, placed on clindamycin, patient had already squeezed pus out of it and it was not drained at that time as result. Patient states she has continued to squeeze some pus ou t of it intermittently and this redness has spread. She denies fever. She does admit to a history of IV drug abuse and she has had abscesses in the past but she denies a history of MRSA. She is currently at 19 weeks, A1. TRAVEL OUTSIDE OF THE [place] 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, Hx MRSA, Hx VRE Past Surgical History: Reports: Hx Adenoidectomy, Hx Section, Hx Tonsillectomy - & adenoids - Immunizations Immunizations up to date: Yes Hx Diphtheria, Pertussis, Tetanus Vaccination: Yes Review of Systems - Review of Systems Constitutional: No symptoms reported EENT: No symptoms reported Cardiovascular: No symptoms reported Respiratory: No symptoms reported Gastrointestinal: No symptoms reported Genitourinary: No symptoms reported Female Genitourinary: No symptoms reported Musculoskeletal: See HPI Skin: See HPI Hematologic/Lymphatic: No symptoms reported Neurological/Psychological: No symptoms reported Physical Exam - Vital signs Vitals: Temp Pulse Resp BP Pulse Ox 98.2 F 104 H 16 129/63 H 100 08/24/19 23:20 08/24/19 23:20 08/24/19 23:20 08/24/19 23:20 08/24/19 23:20 - Notes Notes: GENERAL: Alert, interacts well. No acute distress. HEAD: Normocephalic, atraumatic. EYES: Pupils equal, round, and reactive to light. Extraocular movements intact. ENT: Oral mucosa moist, tongue midline. Oropharynx unremarkable. Airway patent. NECK: Full range of motion. Supple. Trachea midline. LUNGS: Clear to auscultation bilaterally, no wheezes, rales, or rhonchi. No respiratory distress. HEART: Regular rate and rhythm. No murmur ABDOMEN: Gravid abdomen. Soft, non-tender. Non-distended. Bowel sounds present in all 4 quadrants. GENITOURINARY: Deferred EXTREMITIES: Left knee with appears to be S scabbed abscess over the anterior inferior aspect near the top of the tibia, there is some mild surrounding cellulitis, full range of motion of the knee, no swelling of the knee, normal hip, ankle, distal neurovascular exam. BACK: no cervical, thoracic, lumbar midline tenderness. No saddle anesthesia, normal distal neurovascular exam. Moves all extremities in full range of motion. NEUROLOGICAL: Alert and oriented x3. Normal speech. Cranial nerves II through XII grossly intact. PSYCH: Normal affect, normal mood. SKIN: Warm, dry, normal turgor. Course - Re-evaluation Re-evalutation: There is a abscess with a scab over the middle of it over the anterior left knee with some mild surrounding cellulitis but full range of motion at the knee and no significant swelling to the area. No fever. No complaints in regards to the . Patient well-appearing. Because patient states cellulitis has worsened (this appears to have only very slightly worsened), decision was made to perform incision and drainage to promote healing. This was performed without any difficulty, area was cleansed thoroughly, patient will remain on her antibiotics, she will follow-up with primary care and return if she worsens in any way. Patient and significant other state appreciation and agreement. Stable at time of discharge. - Vital Signs Vital signs: Temp Pulse Resp BP Pulse Ox 98.2 F 83 16 128/70 H 100 08/25/19 03:29 08/25/19 03:29 08/25/19 03:29 08/25/19 03:29 08/25/19 03:29 Procedures - Incision and Drainage Left knee Type: Single Anesthetic type: Other - LMX Blade size: 11 I&D procedure: Shurclens applied, Sterile dressing applied Incision Method: Incision made by scalpel Amount/type of drainage: About 3 cc of mixed blood and pus Discharge - Discharge Clinical Impression: Abscess Condition: Stable Disposition: HOME, SELF-CARE Additional Instructions: The abscess pocket has been drained. Keep clean, clean with soap and water, keep absorbing dressing over the area. Take the clindamycin as prescribed. Follow-up with primary care. Come back if you are worse including spreading redness, developing swelling or pain, fever, or any other worsening symptoms.
[2019-08-25] MEDS ORDERED: LIDOCAINE 4% TRANSPARENT DRESSING 5 GM KIT TP ONE (02:08)
[2019-08-25 03:39] VITALS: BP 128/70
== END 2019-08-25 03:53 | disposition home or self-care (01) ==
LOC: ER 23:02
PROC: 0H9LXZZ Drainage of Left Lower Leg Skin, External Approach (ICD-10-PCS; principal; 2019-08-24)
DX: O99.712 Diseases of the skin and subcutaneous tissue complicating pregnancy, second trimester (principal); L02.416 Cutaneous abscess of left lower limb; O99.332 Smoking (tobacco) complicating pregnancy, second trimester; Z3A.19 19 weeks gestation of pregnancy
CPT/HCPCS: 10060; J3490 ×2

== ENCOUNTER → 2019-09-06 | Outpatient (CLI) | payer SELFPAY ==
--- NOTE | 2019-09-07 09:34 | RADIOLOGY REPORT (SQ) ---
EXAM DESCRIPTION: U/S OB 14+ TRNABD 1GES W/O DOP COMPLETED DATE/TIME: 09/06/2019 4:48 pm REASON FOR STUDY: Z34.82 ENCOUNTER FOR SUPRVSN OF NORMAL , SECOND TRIMESTER Z34.82 ENCOUNT ER FOR SUPRVSN OF NORMAL , SECOND TRI COMPARISON: None. TECHNIQUE: Static and Dynamic grayscale imaging performed of gravid uterus using transabdominal appr oach. Additional selected color Doppler and spectral images recorded. All stored on PACS. LIMITATIONS: None. FINDINGS: FETUSES SEEN:1 EGA: 21 weeks 2 days Calculated using BPD,FL,HC,AC documented on images. Clinical 23 weeks 2 days TERRY: 01/15/2020 EFW: For 0 2 grams PERCENTILE: 13% PARUL: 17.2 PLACENTA: Anterior. Unknown PRESENTATION: Cephalic. ANATOMY: HEART RATE: 139 beats per minute. FOUR CHAMBER HEART: Visualized. THREE VESSEL CORD: Yes. CORD INSERTION: Visualized. KIDNEYS AND BLADDER: Visualized. Appear normal. STOMACH: Visualized. Appears normal. SPINE: Normal as visualized. BRAIN AND LATERAL VENTRICLES: Visualized. Appear normal. OTHER: No other significant finding. MATERNAL ADNEXA: Maternal ovaries not visualized. CERVICAL LENGTH: 3.4 cm Closed. OTHER: No other significant finding. IMPRESSION: LIVING INTRAUTERINE . ESTIMATED GESTATIONAL AGE 21 weeks 2 days NO VISUALIZED ANOMALIES. Trimester of : Second trimester - 13 weeks 1 day to 27 weeks 6 days. TECHNICAL DOCUMENTATION: JOB ID: [id number] [employer]- All Rights Reserved Reading location - IP/workstation name: [email or web address]
== END ==
LOC: RAD 14:59
PROVIDERS: ATTEND Midwife
DX: Z34.82 Encounter for supervision of other normal pregnancy, second trimester (principal)
CPT/HCPCS: 76805

== ENCOUNTER 2019-12-18 00:52 | Inpatient (IN) | payer MEDICAID ==
[2019-12-18] MEDS ORDERED: RINGERS SOLUTION,LACTATED 300 ML IV ONE (01:39)
[2019-12-18] MEDS ORDERED: RINGERS SOLUTION,LACTATED 1,000 ML IV PRN (01:39)
[2019-12-18 02:21] LABS: ABSOLUTE BASOPHILS # (AUTO) 0.1 10^3/uL (0.0-0.2); ABSOLUTE EOSINOPHILS # (AUTO) 0.1 10^3/uL (0.0-0.6); ABSOLUTE LYMPHOCYTES (AUTO) 2.2 10^3/uL (0.5-4.7); ABSOLUTE MONOCYTES (AUTO) 0.9 10^3/uL (0.1-1.4); ABSOLUTE NEUT (AUTO) 12.9 10^3/uL (1.7-8.2); BASOPHILS % (AUTO) 0.4 % (0-2); EOSINOPHILS % (AUTO) 0.5 % (0-6); HEMATOCRIT 32.8 % (36.0-47.0); HEMOGLOBIN 10.7 g/dL (12.0-15.5); LYMPHOCYTES % (AUTO) 13.3 % (13-45); MEAN CORPUSCULAR HEMOGLOBIN 26.2 pg (27.0-33.4); MEAN CORPUSCULAR HGB CONC 32.7 g/dL (32.0-36.0); MEAN CORPUSCULAR VOLUME 80 fl (80-97); MONOCYTES % (AUTO) 5.7 % (3-13); PLATELET COUNT 263 10^3/uL (150-450); RED BLOOD COUNT 4.08 10^6/uL (3.72-5.28); RED CELL DISTRIBUTION WIDTH 16.7 % (11.5-14.0); SEGMENTED NEUTROPHILS % (AUTO) 80.1 % (42-78); TOTAL CELLS COUNTED % (AUTO) 100 %; WHITE BLOOD COUNT 16.2 10^3/uL (4.0-10.5)
[2019-12-18 02:30] LABS: ALBUMIN 3.3 g/dL (3.5-5.0); ALKALINE PHOSPHATASE 247 U/L (38-126); ANION GAP 15 (5-19); ASPARTATE AMINO TRANSFERASE 68 U/L (14-36); BILIRUBIN,DIRECT 0.4 mg/dL (0.0-0.4); BILIRUBIN,TOTAL 0.4 mg/dL (0.2-1.3); BLOOD UREA NITROGEN 15 mg/dL (7-20); CALCIUM 8.9 mg/dL (8.4-10.2); CARBON DIOXIDE 14 mmol/L (22-30); CHLORIDE 105 mmol/L (98-107); GLUCOSE 93 mg/dL (75-110); POTASSIUM 4.2 mmol/L (3.6-5.0); TOTAL PROTEIN 6.2 g/dL (6.3-8.2); URIC ACID 6.3 mg/dL (2.5-6.2)
[2019-12-18 03:11] LABS: APPEARANCE,URINE CLOUDY; BILIRUBIN,URINE NEGATIVE (NEGATIVE); COLOR,URINE YELLOW; GLUCOSE, URINE NEGATIVE (NEGATIVE); KETONES,URINE 20 mg/dL (NEGATIVE); LEUKOCYTE ESTERASE,URINE MODERATE (NEGATIVE); NITRITE,URINE NEGATIVE (NEGATIVE); PROTEIN,URINE NEGATIVE (NEGATIVE); URINE SPECIFIC GRAVITY 1.009; UROBILINOGEN,URINE NEGATIVE mg/dL (<2.0)
[2019-12-18] MEDS ORDERED: PENICILLIN G-K 5 MILLION UNIT VIAL ONE (03:17)
[2019-12-18] MEDS ORDERED: OXYTOCIN 10 UNIT/ML VIAL ONE (03:18)
[2019-12-18] MEDS ORDERED: MISOPROSTOL 0.2 MG TABLET ONE (03:18)
[2019-12-18] MEDS ORDERED: LIDOCAINE 1% INJ-PF (10 MG/ML) 30 ML SDV ONE (03:19)
[2019-12-18] MEDS ORDERED: OXYTOCIN/NORMAL SALINE 20 UNIT/1,000 ML RTUINJ ONE (03:19)
[2019-12-18 03:20] LABS: UR PRO/CREAT RATIO RESULT 0.2 mg/mg (0.0-0.2); URINE CREATININE 51.8 mg/dL (16-327); URINE PROTEIN 11.6 mg/dL (<12)
[2019-12-18 03:25] LABS: URINE BARBITURATES SCREEN NEGATIVE; URINE BENZODIAZEPINES SCREEN NEGATIVE; URINE COCAINE SCREEN NEGATIVE; URINE MARIJUANA (THC) SCREEN NEGATIVE; URINE METHADONE SCREEN NEGATIVE; URINE PHENCYCLIDINE SCREEN NEGATIVE
[2019-12-18] MEDS ORDERED: PHENYLEPHRINE HCL INJ/PF 10 MG/1 ML SDV ONE (03:26)
[2019-12-18] MEDS ORDERED: FENTANYL CITRATE INJ/PF 100 MCG/2 ML AMPUL ONE (03:27)
[2019-12-18] MEDS ORDERED: EPHEDRINE SULFATE INJ 50 MG/1 ML AMPULE ONE (03:28)
[2019-12-18] MEDS ORDERED: BUPIVACAINE HCL 0.25 % INJ/PF (2.5 MG/1 ML) 30 ML VIAL ONE (03:29)
[2019-12-18] MEDS ORDERED: FENTANYL/BUPIVACAINE/NS/PF 0 MCG/0 ML RTUINJ EPI ONE (03:29)
[2019-12-18 04:44] LABS: INTERNATIONAL RATION (INR) 0.89; PARTIAL THROMBOPLASTIN TIME 28.7 SEC (23.5-35.8)
[2019-12-18] MEDS ORDERED: IBUPROFEN 800 MG TABLET ONE (05:07)
[2019-12-18] MEDS ORDERED: ACETAMINOPHEN WITH CODEINE #3 TABLET ONE (06:04)
[2019-12-18] MEDS ORDERED: ZOLPIDEM TARTRATE 5 MG TABLET PO PRN (06:28)
[2019-12-18] MEDS ORDERED: NA PHOS,M-B/NA PHOS,DI-BA (ADULT) 133 ML ENEMA PR PRN (06:28)
[2019-12-18] MEDS ORDERED: ACETAMINOPHEN WITH CODEINE #3 TABLET PO PRN (06:28)
[2019-12-18] MEDS ORDERED: DIPH/PERTUSS(ACELL)/TETANUS VAC/PF 0.5 ML SYR (>=10YO) IM PRN (06:28)
[2019-12-18] MEDS ORDERED: MAGNESIUM HYDROXIDE SUSP 30 ML UDCUP PO PRN (06:28)
[2019-12-18] MEDS ORDERED: ACETAMINOPHEN 325 MG TABLET PO PRN (06:28)
[2019-12-18] MEDS ORDERED: OXYTOCIN/NORMAL SALINE 20 UNIT/1,000 ML RTUINJ IV PRN (06:28)
[2019-12-18] MEDS ORDERED: MEASLES,MUMPS&RUBELLA VACC/PF 0.5 ML VIAL SUBCUT PRN (06:28)
[2019-12-18] MEDS ORDERED: BENZOCAINE/MENTHOL AEROSOL SPRAY 56 ML TOP PRN (06:28)
[2019-12-18] MEDS ORDERED: PROMETHAZINE HCL 25 MG SUPP.RECT PR PRN (06:28)
[2019-12-18] MEDS ORDERED: DIBUCAINE 1% OINTMENT 28 GM TP PRN (06:28)
[2019-12-18] MEDS ORDERED: PSEUDOEPHEDRINE HCL 30 MG TABLET PO PRN (06:28)
[2019-12-18] MEDS ORDERED: PROMETHAZINE HCL 25 MG TABLET PO PRN (06:28)
[2019-12-18] MEDS ORDERED: PROMETHAZINE HCL INJ 25 MG/1 ML VIAL IV PRN (06:28)
[2019-12-18] MEDS ORDERED: GLYCERIN/WITCH HAZEL LEAF 1 EACH MED..WIPE TP PRN (06:28)
--- NOTE | 2019-12-18 06:28 | Admission Physical ---
Datetime Report Generated by CPN: 12/18/2019 06:27 CURRENT ADMISSION Chief Complaint: Uterine Contractions Indication for Induction: Not Applicable Admit Impression : , Intrauterine ; Active Labor; Intact Membranes; Admit Plan: Admit to Unit; Initiate Labor Protocol ALLERGIES Medication Allergies: No Medication Allergies: No Known Allergies (12/18/2019) Latex: No Latex Allergies Food Allergies: no Environmental Allergies: no OBSTETRICAL HISTORY EDC: 01/15/2020 00:00 : 4 Para: 2 Term: 1 : 1 SAB: 1 IAB: 0 Ectopic: 0 Livin Cesareans: 1 VBACs: 0 Multiple Births: 0 Gestational Diabetes: No Rh Sensitization: No Incompetent Cervix: No COREY: No Infertility: No ART Treatment: No Uterine Anomaly: No IUGR: No Hx Previous C/S: Yes Macrosomia: No Hx Loss/Stillborn: No PIH: No Hx : No Placenta Previa/Abruption: Yes Depression/PP Depression: Yes PTL/PROM: No Post Hemorrhage: No Current Procedures: Ultrasound SEE RECORDS Alcohol: No Marijuana : Yes Marijuana Frequency: Occasional Last Used: 11/13/2019 00:00 Cocaine: No Other Illicit Drugs: No Cigarettes: Former Smoker. 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 Right elbow abscess drained 06/2019. INFECTIOUS HISTORY Gonorrhea: No Genital Herpes: No Chlamydia: No Tuberculosis: No Syphilis: No Hepatitis: Yes HIV/AIDS Exposure: No Rash or Viral Illness: No HPV: No PHYSICAL EXAM General: Normal HEENT: Normal Neurologic: Normal Thyroid: Deferred Heart: Normal Lungs: Normal Breast: Deferred Back: Normal Abdomen: Normal Genitourinary Exam: Normal Extremities: Normal DTRs: Normal Pelvic Type: Adequate Vital Signs: Reviewed VAGINAL EXAM Dilatation: 3 Effacement: 50 Station: -2 Contraction Comments: q 2-3 FETUS A EGA: 36.0 Monitoring: External US FHR- Baseline: 125 Accelerations: 15X15 Decelerations: None FHR Category: Category I Presentation: Vertex Admit Comment: 29yo (h/o then h/o Primary section for abruption). H/o IV drug use. Desires . Hep C viral load [id number] 09/11/2019. Hep C viral load and CMP done and coags ordered on admission. Patient came in c/o contractions and was 8cm on subsequent exam - reviewed admission for labor at 36wks. PCN ordered due to GBS unknown. Anticipate . proocol. ASCUS HPV needs colpo pp. PLANS FOR LABOR AND DELIVERY Labor and Delivery: None Pain Management: None Feeding Preference: Breast Circumcision: No INFORMED CONSENT Informed Consent Obtained: Vaginal Delivery; Vaginal After ; Risks, Benefits and Alternatives Discussed Signature: with User ID: [email or web address]
--- NOTE | 2019-12-18 10:23 | Delivery Summary ---
Del Sum A-C Datetime Report Generated by CPN: 12/18/2019 10:22 DELIVERY PERSONNEL DELIVERY PERSONNEL: [id number] Delivery Doctor:: Clarice Combs MD Labor and Delivery Nurse:: Suzy Luis RNsuperintendent division Nurse:: DELIA Dillard Manager Cardiovascular/DIGITAL TECHNICIAN: Bhartisenait Blum, ST MATERNAL INFORMATION Delivery Anesthesia: None Medications After Delivery: Pitocin Drip 20 Units/1000ml NSS Estimated Blood Loss (ml): 150 Delivery QBL: 150 Delivery QBL Comment: del 150 recovery 46 total 196 Maternal Complications: None; Precipitous Labor (<3hrs) Provider Comments: VMI delivered in LAUREEN presentation. No nuchal cord but around left arm and right leg. Shoulders and body delivered without difficulty. Cord doubly clamped and cut and to maternal abdomen for NRP. Placenta delivered intact spontaneously. Superficial hemostatic laceration no repair needed. FF at U. Mother and baby stable upon provider leaving the room. LABOR SUMMARY EDC: 01/15/2020 00:00 No. Babies in Womb: 1 Attempted: Yes Labor Anesthesia: None LABOR INFORMATION Reason for Induction: Not Applicable Onset of Labor: 12/18/2019 03:15 Complete Dilatation: 12/18/2019 04:00 Group B Beta Strep: unknown Antibiotics # of Doses: 1 Antibiotics Time of Last Dose: 339 Name of Antibiotic Given: penicillin Steroids Given: None Reason Steroids Not Administered: Imminent Delivery Other Reason Not Administered: 36wks imminent delivery MEMBRANES Membranes Rupture Method: Spontaneous Rupture of Membranes: 12/18/2019 04:30 Length of Rupture (hr): 0.17 Amniotic Fluid Color: Clear Amniotic Fluid Amount: Moderate Amniotic Fluid Odor: Normal STAGES OF LABOR Stage 1 hr: 0 Stage 1 min: 45 Stage 2 hr: 0 Stage 2 min: 40 Stage 3 hr: 0 Stage 3 min: 3 Total Time in Labor hr: 1 Total Time in Labor min: 28 VAGINAL DELIVERY Episiotomy: None Laceration #1: None Laceration Extension #1: N/A Laceration Repair: Not Applicable Laceration Repair Note: superficial laceration hemostatic - no repair needed. Sponge Count Correct: Yes Sharps Count Correct: Yes CSECTION DELIVERY Primary Indication: N/A Secondary Indication: N/A CSection Incidence: N/A Labor: N/A Elective: N/A CSection Incision: N/A BABY A INFORMATION Infant Delivery Date/Time: 12/18/2019 04:40 Method of Delivery: Vaginal Born in Route : No : Successful Forceps: N/A Vacuum Extraction: N/A PRESENTATION/POSITION BABY A Presentation: Cephalic Cephalic Presentation: Vertex Vertex Position: Left Occipital Anterior Breech Presentation: N/A PLACENTA INFORMATION BABY A Placenta Delivery Time : 12/18/2019 04:43 Placenta Method of Delivery: Spontaneous Placenta Status: Delivered SCORES BABY A Heart Rate 1 min: >100 bpm Resp Effort 1 min: Slow, Irregular Reflex Irritability 1 min: Grimace Muscle Tone 1 min: Active Motion Color 1 min: Body [place], Extremities Blue SCORE 1 MIN: 7 Heart Rate 5 min: >100 bpm Resp Effort 5 min: Good Cry Reflex Irritability 5 min: Cough or Sneeze or Pulls Away Muscle Tone 5 min: Active Motion Color 5 min: Body [place], Extremities Blue SCORE 5 MIN: 9 INFANT INFORMATION BABY A Gestational Age at Delivery: 36.0 Gestational Status: Late - 34- 36.6 Weeks Outcome : Liveborn Sex: Male IDENTIFICATION BABY A Infant Verification Date/Time: 12/18/2019 05:32 ID Band Number: [id number] Mother's Name Verified: Yes Infant RN Verifying Infant: Nan LuisJONATHAN Additional Verifying Personnel: Narinder Blum ST WEIGHT/LENGTH BABY A Infant Birthweight (gm): 2751 Infant Weight (lb): 6 Infant Weight (oz): 1 Infant Length (in): 18.50 Infant Length (cm): 46.99 SIGNATURES Signature: with User ID: [email or web address]
[2019-12-18] MEDS: ACETAMINOPHEN WITH CODEINE #3 TABLET PO PRN ×2 (11:07→17:58)
[2019-12-18] MEDS: DIPHENHYDRAMINE HCL 25 MG CAPSULE PO PRN ×2 (11:08→17:54)
[2019-12-18] MEDS: DOCUSATE SODIUM 100 MG CAPSULE PO SCH ×2 (13:27→17:54)
[2019-12-18] MEDS: PRENATAL VITAMIN W DHA CAPSULE PO SCH (13:27)
[2019-12-18] MEDS: SENNOSIDES/DOCUSATE 8.6-50 MG 1 EACH TABLET PO SCH (13:27)
[2019-12-18] MEDS: FAMOTIDINE 20 MG TABLET PO SCH ×2 (13:27→23:42)
[2019-12-18] MEDS: FERROUS SULFATE 325 MG TABLET PO SCH ×2 (13:28→17:54)
[2019-12-18] MEDS: IBUPROFEN 800 MG TABLET PO SCH ×2 (13:28→23:43)
[2019-12-18] MEDS ORDERED: DIPHENHYDRAMINE HCL 2% CREAM 30 GM TP PRN (18:10)
[2019-12-19] MEDS: ACETAMINOPHEN WITH CODEINE #3 TABLET PO PRN ×4 (00:52→18:05)
[2019-12-19] MEDS ORDERED: HYDROXYZINE PAMOATE 50 MG CAPSULE PO PRN (01:32)
[2019-12-19] MEDS: IBUPROFEN 800 MG TABLET PO SCH ×3 (06:32→23:04)
[2019-12-19 07:01] LABS: HEMATOCRIT 33.1 % (36.0-47.0); HEMOGLOBIN 10.9 g/dL (12.0-15.5); MEAN CORPUSCULAR HGB CONC 33.1 g/dL (32.0-36.0); MEAN CORPUSCULAR VOLUME 82 fl (80-97); PLATELET COUNT 284 10^3/uL (150-450); RED BLOOD COUNT 4.05 10^6/uL (3.72-5.28); RED CELL DISTRIBUTION WIDTH 16.5 % (11.5-14.0); WHITE BLOOD COUNT 8.4 10^3/uL (4.0-10.5)
--- NOTE | 2019-12-19 09:05 | PDOC PROGRESS REPORT ---
Subjective-OB Progress Note for:: 12/19/19 - t Subjective: Patient states is planning to breastfeed her baby as soon as screen is negative, was told not to breastfeed as many leasions on body. Physical Exam (OB) Vital Signs: Temp Pulse Resp BP Pulse Ox 98.1 F 75 16 130/72 H 96 12/19/19 08:09 12/19/19 08:09 12/19/19 08:09 12/19/19 08:09 12/19/19 08:09 Intake & Output 12/18/19 12/19/19 12/20/19 06:59 06:59 06:59 Weight 64.8 kg - PIH/Pre-Eclampsia Headache: Absent Epigastric Pain: No Visual Changes: No - Lochia Lochia Amount: Scant < 10 ml Lochia Color: Rubra/Red - Abdomen Description: Soft, Round Hernia Present: No Bowel Sounds: Normoactive Flatus Presence: Present Stool: No Fundal Description: Firm, Midline Fundal Height: u/u - u/2 Objective-Diagnostic Laboratory: 12/19/19 06:36 12/18/19 01:51 12/19/19 12/19/19 06:36 06:36 WBC 8.4 RBC 4.05 Hgb 10.9 L Hct 33.1 L MCV 82 MCH 27.0 MCHC 33.1 RDW 16.5 H Plt Count 284 Blood Type A NEGATIVE
[2019-12-19] MEDS: FERROUS SULFATE 325 MG TABLET PO SCH ×2 (10:01→18:02)
[2019-12-19] MEDS: SENNOSIDES/DOCUSATE 8.6-50 MG 1 EACH TABLET PO SCH (10:01)
[2019-12-19] MEDS: DOCUSATE SODIUM 100 MG CAPSULE PO SCH ×2 (10:01→18:02)
[2019-12-19] MEDS: PRENATAL VITAMIN W DHA CAPSULE PO SCH (10:01)
[2019-12-19] MEDS: FAMOTIDINE 20 MG TABLET PO SCH ×2 (10:01→23:04)
[2019-12-19 19:36] LABS: HEPATITIS C QUANTITATION 1900000 IU/mL (.)
[2019-12-20] MEDS: ACETAMINOPHEN WITH CODEINE #3 TABLET PO PRN ×3 (03:17→14:36)
[2019-12-20] MEDS: LORAZEPAM 0.5 MG TABLET PO PRN ×3 (04:44→18:19)
[2019-12-20] MEDS: IBUPROFEN 800 MG TABLET PO SCH ×2 (05:03→14:36)
[2019-12-20] MEDS: SENNOSIDES/DOCUSATE 8.6-50 MG 1 EACH TABLET PO SCH (09:51)
[2019-12-20] MEDS: PRENATAL VITAMIN W DHA CAPSULE PO SCH (09:51)
[2019-12-20] MEDS: DOCUSATE SODIUM 100 MG CAPSULE PO SCH ×2 (09:51→18:03)
[2019-12-20] MEDS: FAMOTIDINE 20 MG TABLET PO SCH (09:51)
[2019-12-20] MEDS: FERROUS SULFATE 325 MG TABLET PO SCH ×2 (09:51→18:03)
[2019-12-20] MEDS ORDERED: MEDROXYPROGESTERONE ACET INJ 150 MG/1 ML VIAL IM ONE ×2 (10:58→18:00)
--- NOTE | 2019-12-20 11:32 | PDOC DISCHARGE SUMMARY ---
Impression - Admit/DC Date/PCP Admission Date/Primary Care Provider: 12/18/19 03:31 KAM LEE MD Discharge Date: 12/20/19 - Discharge Diagnosis (1) labor Is this a current diagnosis for this admission?: Yes (2) Drug abuse Is this a current diagnosis for this admission?: Yes (3) Depression with anxiety Is this a current diagnosis for this admission?: Yes (4) Precipitous delivery, delivered (current hospitalization) Is this a current diagnosis for this admission?: Yes (5) , delivered, current hospitalization Is this a current diagnosis for this admission?: Yes (6) Previous section Is this a current diagnosis for this admission?: Yes (7) Hepatitis C Is this a current diagnosis for this admission?: Yes (8) Tobacco abuse Is this a current diagnosis for this admission?: Yes - Additional Information Discharge Diet: Regular Discharge Activity: Balance Activity w/Rest, Pelvic Rest Referrals: [facility] [Provider Group] Prescriptions: Ibuprofen [Motrin 800 mg Tablet] 800 mg PO Q8HP PRN #60 tablet PRN Reason: 95/Iron Fum/Folic/Dha [ + Dha Combo Pack] 1 each PO DAILY #90 Home Medications: Acetaminophen/Diphenhydramine [Tylenol Pm Ex-Strength Caplet] 2 tab PO DAILY 12/18/19 Pseudoephedrine HCl [Sudafed 30 mg Tablet] 1 tab PO DAILY 12/18/19 Ibuprofen [Motrin 800 mg Tablet] 800 mg PO Q8HP PRN #60 tablet 12/20/19 95/Iron Fum/Folic/Dha [ + Dha Combo Pack] 1 each PO DAILY #90 12/20/19 HPI Gestational Age: 36 Reason(s) for Admission: Labor Procedures: NST Intrapartum Procedure(s): Spontaneous Vaginal Delivery Results Laboratory Results: WBC 8.4 10^3/uL (4.0-10.5) 12/19/19 06:36 RBC 4.05 10^6/uL (3.72-5.28) 12/19/19 06:36 Hgb 10.9 g/dL (12.0-15.5) L 12/19/19 06:36 Hct 33.1 % (36.0-47.0) L 12/19/19 06:36 MCV 82 fl (80-97) 12/19/19 06:36 MCH 27.0 pg (27.0-33.4) 12/19/19 06:36 MCHC 33.1 g/dL (32.0-36.0) 12/19/19 06:36 RDW 16.5 % (11.5-14.0) H 12/19/19 06:36 Plt Count 284 10^3/uL (150-450) 12/19/19 06:36 Lymph % (Auto) 13.3 % (13-45) 12/18/19 01:51 [place] % (Auto) 5.7 % (3-13) 12/18/19 01:51 Eos % (Auto) 0.5 % (0-6) 12/18/19 01:51 Baso % (Auto) 0.4 % (0-2) 12/18/19 01:51 Absolute Neuts (auto) 12.9 10^3/uL (1.7-8.2) H 12/18/19 01:51 Absolute Lymphs (auto) 2.2 10^3/uL (0.5-4.7) 12/18/19 01:51 Absolute Monos (auto) 0.9 10^3/uL (0.1-1.4) 12/18/19 01:51 Absolute Eos (auto) 0.1 10^3/uL (0.0-0.6) 12/18/19 01:51 Absolute Basos (auto) 0.1 10^3/uL (0.0-0.2) 12/18/19 01:51 Seg Neutrophils % 80.1 % (42-78) H 12/18/19 01:51 PT 12.0 SEC (11.4-15.4) 12/18/19 04:27 INR 0.89 12/18/19 04:27 APTT 28.7 SEC (23.5-35.8) 12/18/19 04:27 Sodium 134.0 mmol/L (137-145) L 12/18/19 01:51 Potassium 4.2 mmol/L (3.6-5.0) 12/18/19 01:51 Chloride 105 mmol/L (98-107) 12/18/19 01:51 Carbon Dioxide 14 mmol/L (22-30) L 12/18/19 01:51 Anion Gap 15 (5-19) 12/18/19 01:51 BUN 15 mg/dL (7-20) 12/18/19 01:51 Creatinine 0.70 mg/dL (0.52-1.25) 12/18/19 01:51 Est GFR ( Amer) > 60 (>60) 12/18/19 01:51 Est GFR (MDRD) Non-Af > 60 (>60) 12/18/19 01:51 Glucose 93 mg/dL (75-110) 12/18/19 01:51 Uric Acid 6.3 mg/dL (2.5-6.2) H 12/18/19 01:51 Calcium 8.9 mg/dL (8.4-10.2) 12/18/19 01:51 Total Bilirubin 0.4 mg/dL (0.2-1.3) 12/18/19 01:51 Direct Bilirubin 0.4 mg/dL (0.0-0.4) 12/18/19 01:51 Neonat Total Bilirubin Not Reportable 12/18/19 01:51 Neonat Direct Bilirubin Not Reportable 12/18/19 01:51 Neonat Indirect Bili Not Reportable 12/18/19 01:51 AST 68 U/L (14-36) H 12/18/19 01:51 ALT 42 U/L (<35) 12/18/19 01:51 Alkaline Phosphatase 247 U/L (38-126) H 12/18/19 01:51 Lactate Dehydrogenase 267 U/L (120-246) H 12/18/19 01:51 Total Protein 6.2 g/dL (6.3-8.2) L 12/18/19 01:51 Albumin 3.3 g/dL (3.5-5.0) L 12/18/19 01:51 Urine Color YELLOW 12/18/19 02:37 Urine Appearance CLOUDY 12/18/19 02:37 Urine pH 5.0 (5.0-9.0) 12/18/19 02:37 Ur Specific [place] 1.009 12/18/19 02:37 Urine Protein NEGATIVE mg/dL (NEGATIVE) 12/18/19 02:37 Urine Glucose (UA) NEGATIVE mg/dL (NEGATIVE) 12/18/19 02:37 Urine Ketones 20 mg/dL (NEGATIVE) H 12/18/19 02:37 Urine Blood SMALL (NEGATIVE) H 12/18/19 02:37 Urine Nitrite NEGATIVE (NEGATIVE) 12/18/19 02:37 Urine Bilirubin NEGATIVE (NEGATIVE) 12/18/19 02:37 Urine Urobilinogen NEGATIVE mg/dL (<2.0) 12/18/19 02:37 Ur Leukocyte Esterase MODERATE (NEGATIVE) H 12/18/19 02:37 Urine WBC (Auto) 11 /HPF 12/18/19 02:37 Urine RBC (Auto) 3 /HPF 12/18/19 02:37 Urine Bacteria (Auto) 1+ /HPF 12/18/19 02:37 Squamous Epi Cells Auto 3 /HPF 12/18/19 02:37 Urine Mucus (Auto) RARE /LPF 12/18/19 02:37 Urine Creatinine 51.8 mg/dL (16-327) 12/18/19 02:37 Protein/Creatinin Ratio 0.2 mg/mg (0.0-0.2) 12/18/19 02:37 Urine Total Protein 11.6 mg/dL (<12) 12/18/19 02:37 Urine Ascorbic Acid NEGATIVE (NEGATIVE) 12/18/19 02:37 Urine Opiates Screen NEGATIVE 12/18/19 02:37 Urine Methadone Screen NEGATIVE 12/18/19 02:37 Ur Barbiturates Screen NEGATIVE 12/18/19 02:37 Ur Phencyclidine Scrn NEGATIVE 12/18/19 02:37 Ur Amphetamines Screen 12/18/19 02:37 U Benzodiazepines Scrn NEGATIVE 12/18/19 02:37 Urine Cocaine Screen NEGATIVE 12/18/19 02:37 U Marijuana (THC) Screen NEGATIVE 12/18/19 02:37 HCV Quantitation [id number] IU/mL (.) 12/18/19 04:27 HCV RNA PCR Test Info Comment (.) 12/18/19 04:27 Blood Type A NEGATIVE 12/19/19 06:36 Antibody Screen NEGATIVE 12/18/19 01:51 Screen NEGATIVE 12/19/19 06:36 Rhogam Indicated Cancelled 12/19/19 06:36 Plan Plan of Treatment: follow up in [address] [facility] for post exam
[2019-12-20 22:30] VITALS: BP 137/88
== END 2019-12-20 22:23 | disposition home or self-care (01) | DRG 806 ==
LOC: LC 00:52 → LR 03:31 → 2N 10:10
PROVIDERS: ADMIT Student in an Organized Health Care Education/Training Program; ATTEND Student in an Organized Health Care Education/Training Program
PROC: 10E0XZZ Delivery of Products of Conception, External Approach (ICD-10-PCS; principal; 2019-12-18)
PROC: 3E0334Z Introduction of Serum, Toxoid and Vaccine into Peripheral Vein, Percutaneous Approach (ICD-10-PCS; 2019-12-20)
DX: O60.14X0 Preterm labor third trimester with preterm delivery third trimester, not applicable or unspecified (principal); O98.413 Viral hepatitis complicating pregnancy, third trimester; Z37.0 Single live birth; O99.323 Drug use complicating pregnancy, third trimester; O99.343 Other mental disorders complicating pregnancy, third trimester; O62.3 Precipitate labor; O34.219 Maternal care for unspecified type scar from previous cesarean delivery; F12.90 Cannabis use, unspecified, uncomplicated; F41.8 Other specified anxiety disorders; B19.20 Unspecified viral hepatitis C without hepatic coma; O99.333 Smoking (tobacco) complicating pregnancy, third trimester; Z3A.36 36 weeks gestation of pregnancy
CPT/HCPCS: 36415; 80053; 80307; 81001; 82570; 83615; 84156; 84550; 85025; 85027; 85461; 85610; 85730; 86850; 86900; 86901; 87522; 88307; G0480; J1050; J2370; J2540; J2590; J2790; J3010; J3490

== ENCOUNTER 2020-09-14 13:53 | Emergency (ER) | payer MEDICAID ==
--- NOTE | 2020-09-14 14:08 | ER Document Report ---
ED Medical Screen (RME) - General Stated Complaint: VAGINAL BLEEDING Time Seen by Provider: 09/14/20 13:57 Primary Care Provider: KAM LEE MD [Primary Care Provider] - Follow up as needed TRAVEL OUTSIDE OF THE [place] IN LAST 30 DAYS: No - HPI Notes: 09/14/20 14:07 20-year-old female to the emergency department with complaints of vaginal bleeding and lower abdominal pain for the past month. She states she had a baby in December and directly after had a Depo shot. But she never got another Depo shot. She states that she also had an abnormal Pap smearto get a colposcopy but she has not done that yet. She states the persistent bleeding has made her very nervous. Denies any nausea or vomiting. She states that there is a possibility she could be . Brief medical screening exam illustrates an anxious young woman with mild tenderness to palpation to the lower abdomen. I performed a brief medical screening exam on the patient determined that the patient needs further evaluation and management by main side provider. I have placed initial orders to help expedite care. - Related Data Allergies/Adverse Reactions: No Known Allergies Allergy (Verified 12/18/19 01:07) Past Medical History Renal/ Medical History: Denies: Hx Peritoneal Dialysis GI Medical History: Reports: Hx Hepatitis Psychiatric Medical History: Reports: Hx Anxiety, Hx Bipolar Disorder Infectious Medical History: Reports: Hx Hepatitis, Hx MRSA, Hx VRE Past Surgical History: Reports: Hx Adenoidectomy, Hx Section, Hx Tonsillectomy - & adenoids - Immunizations Immunizations up to date: Yes Hx Diphtheria, Pertussis, Tetanus Vaccination: Yes Doctor's Discharge - Discharge Referrals: KAM LEE MD [Primary Care Provider] - Follow up as needed
[2020-09-14 14:16] VITALS: BP 143/74
[2020-09-14 14:33] LABS: ABSOLUTE EOSINOPHILS # (AUTO) 0.2 10^3/uL (0.0-0.6); ABSOLUTE LYMPHOCYTES (AUTO) 1.7 10^3/uL (0.5-4.7); ABSOLUTE MONOCYTES (AUTO) 0.4 10^3/uL (0.1-1.4); ABSOLUTE NEUT (AUTO) 5.4 10^3/uL (1.7-8.2); BASOPHILS % (AUTO) 0.5 % (0-2); EOSINOPHILS % (AUTO) 2.5 % (0-6); HEMATOCRIT 41.7 % (36.0-47.0); HEMOGLOBIN 14.4 g/dL (12.0-15.5); LYMPHOCYTES % (AUTO) 21.7 % (13-45); MEAN CORPUSCULAR HEMOGLOBIN 31.6 pg (27.0-33.4); MEAN CORPUSCULAR HGB CONC 34.6 g/dL (32.0-36.0); MEAN CORPUSCULAR VOLUME 91 fl (80-97); MONOCYTES % (AUTO) 5.3 % (3-13); PLATELET COUNT 326 10^3/uL (150-450); RED BLOOD COUNT 4.57 10^6/uL (3.72-5.28); RED CELL DISTRIBUTION WIDTH 13.4 % (11.5-14.0); TOTAL CELLS COUNTED % (AUTO) 100 %; WHITE BLOOD COUNT 7.7 10^3/uL (4.0-10.5)
[2020-09-14 14:36] LABS: APPEARANCE,URINE CLEAR; BILIRUBIN,URINE NEGATIVE (NEGATIVE); COLOR,URINE YELLOW; GLUCOSE, URINE NEGATIVE (NEGATIVE); KETONES,URINE NEGATIVE (NEGATIVE); PROTEIN,URINE NEGATIVE (NEGATIVE); URINE SPECIFIC GRAVITY 1.023; UROBILINOGEN,URINE NEGATIVE mg/dL (<2.0)
[2020-09-14 15:05] LABS: ALBUMIN 4.8 g/dL (3.5-5.0); ALKALINE PHOSPHATASE 80 U/L (38-126); ANION GAP 11 (5-19); ASPARTATE AMINO TRANSFERASE 73 U/L (14-36); BILIRUBIN,DIRECT 0.1 mg/dL (0.0-0.4); BILIRUBIN,TOTAL 0.2 mg/dL (0.2-1.3); BLOOD UREA NITROGEN 18 mg/dL (7-20); CALCIUM 9.9 mg/dL (8.4-10.2); CARBON DIOXIDE 25 mmol/L (22-30); CHLORIDE 105 mmol/L (98-107); GLUCOSE 105 mg/dL (75-110); POTASSIUM 4.1 mmol/L (3.6-5.0)
--- NOTE | 2020-09-14 15:48 | ER Document Report ---
ED General - General Chief Complaint: Vaginal Bleeding Stated Complaint: VAGINAL BLEEDING Time Seen by Provider: 09/14/20 13:57 Primary Care Provider: KAM LEE MD [Primary Care Provider] - Follow up as needed Mode of Arrival: Ambulatory Information source: Patient TRAVEL OUTSIDE OF THE [place] IN LAST 30 DAYS: No - HPI Notes: Patient presents complaining of vaginal bleeding for 1 month. She states sometimes she will use 1 pad a day other times to be 3-4 pads per day. She states is mostly bright red. No clots. She states she has not had this problem in the past. She states she gave by in November and received a Depo shot in December and since that time she has not had any significant menstrual cycles until she started bleeding about 1 month ago. She states of the last 3 to 4 days she has had lower abdominal crampy pain which is what prompted the visit today. No fevers or vomiting. She has not seen an [facility] provider concerning this matter. Her pelvic cramping is mild to moderate. It has been intermittent. Nothing makes better or worse. It radiates across lower abdomen. - Related Data Allergies/Adverse Reactions: No Known Allergies Allergy (Verified 09/14/20 14:33) Past Medical History - General Information source: Patient - Social History Smoking Status: Current Some Day Smoker Frequency of alcohol use: None Drug Abuse: None Family History: Reviewed & Not Pertinent Patient has homicidal ideation: No Renal/ Medical History: Denies: Hx Peritoneal Dialysis GI Medical History: Reports: Hx Hepatitis Psychiatric Medical History: Reports: Hx Anxiety, Hx Bipolar Disorder Infectious Medical History: Reports: Hx Hepatitis, Hx MRSA, Hx VRE Past Surgical History: Reports: Hx Adenoidectomy, Hx Section, Hx Tonsillectomy - & adenoids - Immunizations Immunizations up to date: Yes Hx Diphtheria, Pertussis, Tetanus Vaccination: Yes Review of Systems - Review of Systems Constitutional: denies: Chills, Fever Cardiovascular: denies: Chest pain, Palpitations Respiratory: denies: Cough, Short of breath -: Yes All other systems reviewed and negative Physical Exam - Vital signs Vitals: Temp Pulse Resp BP Pulse Ox 98.7 F 105 H 18 143/74 H 99 09/14/20 14:16 09/14/20 14:16 09/14/20 14:16 09/14/20 14:16 09/14/20 14:16 Interpretation: Normal - General General appearance: Appears well, Alert - HEENT Head: Normocephalic, Atraumatic Eyes: Normal Pupils: PERRL - Respiratory Respiratory status: No respiratory distress Chest status: Nontender Breath sounds: Normal Chest palpation: Normal - Cardiovascular Rhythm: Regular, Other - Patient was apparently tachycardic at triage but is not tachycardic now Heart sounds: Normal auscultation Murmur: No - Abdominal Inspection: Normal Distension: No distension Bowel sounds: Normal Tenderness: Nontender Organomegaly: No organomegaly - Genitourinary External exam: Normal Speculum exam: Cervix closed. No: Cervix open Vaginal bleeding: Mild Bimanuel exam: Adnexal tenderness - right, no masses - Back Back: Normal, Nontender - Extremities General upper extremity: Normal inspection, Nontender, Normal color, Normal ROM, Normal temperature General lower extremity: Normal inspection, Nontender, Normal color, Normal ROM, Normal temperature, Normal weight bearing. No: Aren's sign - Neurological Neuro grossly intact: Yes Cognition: Normal Orientation: AAOx4 [place] Coma Scale Eye Opening: Spontaneous [place] Coma Scale Verbal: Oriented [place] Coma Scale Motor: Obeys Commands [place] Coma Scale Total: 15 Speech: Normal Motor strength normal: LUE, RUE, LLE, RLE Sensory: Normal - Psychological Associated symptoms: Normal affect, Normal mood - Skin Skin Temperature: Warm Skin Moisture: Dry Skin Color: Normal Course - Re-evaluation Re-evalutation: 09/14/20 15:45 Patient presents with dysfunctional uterine bleeding. She is not anemic. Vital signs are stable. I think patient will be best served with Provera, pain medicine and follow-up as an outpatient. - Vital Signs Vital signs: Temp Pulse Resp BP Pulse Ox 98.7 F 105 H 18 143/74 H 99 09/14/20 14:16 09/14/20 14:16 09/14/20 14:16 09/14/20 14:16 09/14/20 14:16 - Laboratory Result Diagrams: 09/14/20 14:17 09/14/20 14:17 Laboratory results interpreted by me: 09/14/20 09/14/20 14:17 14:17 AST 73 H ALT 147 H Urine Blood LARGE H Discharge - Discharge Clinical Impression: Dysfunctional uterine bleeding Condition: Stable Disposition: HOME, SELF-CARE Instructions: Dysfunctional Uterine Bleeding ([facility]) Prescriptions: Hydrocodone/Acetaminophen [[place] 5-325 mg Tablet] 1 tab PO Q6 PRN 3 Days #12 tab let PRN Reason: For Pain Medroxyprogesterone Acet [Provera 10 Mg Tablet] 10 mg PO DAILY 10 Days #10 tablet Forms: Return to Work Referrals: KAM LEE MD [Primary Care Provider] - Follow up in 3-5 days
== END 2020-09-14 15:54 | disposition home or self-care (01) ==
LOC: ER 13:53
DX: N93.8 Other specified abnormal uterine and vaginal bleeding (principal); R10.2 Pelvic and perineal pain; F17.200 Nicotine dependence, unspecified, uncomplicated
CPT/HCPCS: 36415; 80053; 81001; 81025; 85025; 99284